=== PATIENT | female | born 1985 | race American Indian/Alaskan Native ===

== ENCOUNTER 2016-12-21 23:53 | Observation (INO) | payer MEDICAID ==
[2016-12-21 23:59] VITALS: BMI 26.7
--- NOTE | 2016-12-22 00:20 | ED PDOC ---
Arrival/HPI - General Chief Complaint: Hip Pain Time Seen by Provider: 12/21/16 23:55 Historian: Patient - History of Present Illness Narrative History of Present Illness (Text): 12/22/16 00:20 Donta Rivera is a 30 year old female, whose past medical history includes sickle cell disease, bronchitis, hypertension, and hypothyroidism, who presents to the Emergency department complaining of diffuse body aches today. Patient states she has experienced similar symptoms in the past secondary to her sickle cell disease. Patient denies any fever, chills, chest pain, shortness of breath , nausea, vomiting, diarrhea, urinary symptoms, back pain, neck pain, headache, dizziness, or any other complaints. Time/Duration: Other (today) Symptom Onset: Gradual Symptom Course: Unchanged Quality: Aching Activities at Onset: Rest, Light Context: Home Past Medical History - Provider Review Nursing Documentation Reviewed: Yes - Infectious Disease Hx of Infectious Diseases: None - Tetanus Immunization Tetanus Immunization: Up to Date - Cardiac Hx Hypertension: Yes - Pulmonary Hx Respiratory Disorders: No - Neurological Hx Neurological Disorder: No - HEENT Hx HEENT Disorder: No - Renal Hx Renal Disorder: No - Endocrine/Metabolic Hx Endocrine Disorders: Yes Hx Hypothyroidism: Yes - Hematological/Oncological Hx Sickle Cell Disease: Yes - Integumentary Hx Dermatological Disorder: No - Musculoskeletal/Rheumatological Hx Falls: Yes - Gastrointestinal Hx Gastrointestinal Disorders: No - Genitourinary/Gynecological Hx Genitourinary Disorders: Yes (c/s x2, removal of left fallopian tube for ectopic pregnacy) Hx Urinary Tract Infection: Yes Other/Comment: ovarian cyst - Psychiatric Hx Psychophysiologic Disorder: Yes Hx Anxiety: Yes Hx Substance Use: No - Past Surgical History Past Surgical History: No Previous - Surgical History Other/Comment: PAC L SUBCLAVIAN 3YRS AGO [place] [facility] [place] in right subclavian - Anesthesia Hx Anesthesia: Yes Hx Anesthesia Reactions: No Hx Malignant Hyperthermia: No - Suicidal Assessment Feels Threatened In Home Enviroment: No Family/Social History - Physician Review Nursing Documentation Reviewed: Yes Family/Social History: No Known Family HX Smoking Status: Never Smoked Hx Alcohol Use: Yes Hx Substance Use: No Hx Substance Use Treatment: No Allergies/Home Meds Allergies/Adverse Reactions: Allergies ketorolac tromethamine [From Toradol] Allergy (Verified 12/22/16 00:00) ITCHING morphine Allergy (Verified 12/22/16 00:00) RASH Penicillins Allergy (Verified 12/22/16 00:00) RASH tramadol Allergy (Verified 12/22/16 00:02) DIZZINESS Home Medications: Home Meds Medication Instructions Recorded Confirmed Albuterol HFA [Ventolin HFA 90 2 puff IH [id number] PRN 12/22/16 12/22/16 mcg/actuation (8 g)] Folic Acid 1 mg PO DAILY 12/22/16 12/22/16 HYDROmorphone [Dilaudid] 4 mg PO PRN 12/22/16 Metoprolol Tartrate 25 mg PO BID 12/22/16 12/22/16 Propylthiouracil 100 mg PO TID 12/22/16 12/22/16 oxyCODONE/Acetaminophen [Percocet 1 tab PO PRN 12/22/16 5/325 mg Tab] Review of Systems - Physician Review All systems were reviewed & negative as marked: Yes - Review of Systems Constitutional: Normal. absent: Fevers Eyes: Normal ENT: Normal Respiratory: Normal. absent: SOB, Cough Cardiovascular: Normal. absent: Chest Pain Gastrointestinal: Normal. absent: Abdominal Pain, Diarrhea, Nausea, Vomiting Genitourinary Female: Normal. absent: Dysuria, Frequency, Hematuria, Urine Output Changes Musculoskeletal: Myalgias (+body aches). absent: Back Pain, Neck Pain Skin: Normal. absent: Rash Neurological: Normal. absent: Headache, Dizziness Endocrine: Normal Hemo/Lymphatic: Normal Psychiatric: Normal Physical Exam Vital Signs Reviewed: Yes Vital Signs Temp Pulse Resp BP Pulse Ox 12/22/16 04:21 98.7 F 96 H 18 110/60 96 12/22/16 04:01 97 H 16 108/59 L 98 12/22/16 01:54 111 H 20 112/66 100 12/22/16 00:02 115 H 18 100/64 99 12/21/16 23:54 115 H 18 100/64 99 Temperature: Afebrile Blood Pressure: Normal Pulse: Regular Respiratory Rate: Normal Appearance: Positive for: Well-Appearing, Non-Toxic, Comfortable Pain Distress: None Mental Status: Positive for: Alert and Oriented X 3 - Systems Exam Head: Present: Atraumatic, Normocephalic Pupils: Present: PERRL Extroacular Muscles: Present: EOMI Conjunctiva: Present: Normal Mouth: Present: Moist Mucous Membranes Neck: Present: Normal Range of Motion Respiratory/Chest: Present: Clear to Auscultation, Good Air Exchange. No: Respiratory Distress, Accessory Muscle Use Cardiovascular: Present: Regular Rate and Rhythm, Normal S1, S2. No: Murmurs Abdomen: Present: Normal Bowel Sounds. No: Tenderness, Distention, Peritoneal Signs Back: Present: Normal Inspection Upper Extremity: Present: Normal Inspection. No: Cyanosis, Edema Lower Extremity: Present: Normal Inspection. No: Edema Neurological: Present: GCS=15, CN II-XII Intact, Speech Normal Skin: Present: Warm, Dry, Normal Color. No: Rashes Psychiatric: Present: Alert, Oriented x 3, Normal Insight, Normal Concentration Medical Decision Making ED Course and Treatment: 12/22/16 00:20 Impression: 30 year old female complaining of diffuse body aches. Differential Diagnosis include but are not limited to: sickle cell crisis Plan: -- EKG -- Labs, troponin, reticulocyte count -- Urinalysis -- IV fluids -- Dilaudid -- Benadryl -- Zofran -- Reassess and disposition Prior Visits: Notes and results from previous visits were reviewed. Progress Notes: 12/22/16 01:49 Reviewed EKG, NSR at [address] bpm[address] Non-specific ST/T wave changes. Positive urine HCG, beta-HC. Pt reports she recently had a miscarriage 5 weeks ago. 12/22/16 03:49 Case discussed with director medical affairs railway station manager, who is aware and agrees with plan. 12/22/16 03:[address] Geronimo, who is aware and agrees with plan. Accepts pt in to hospitalist service. Pt will go to [facility] observation for sickle cell crisis. - Lab Interpretations Lab Results: 12/22/16 02:50 12/22/16 02:50 Lab Results 12/22/16 02:50: WBC 13.6 H D, RBC 3.26 L, Hgb 9.5 L, Hct 26.7 L, MCV 81.9, MCH 29.1, MCHC 35.6, RDW 17.7 H, Plt Count 433, MPV 8.5, Neutrophils % (Manual) 40 L , Lymphocytes % (Manual) 47 H, Monocytes % (Manual) 10 H, Eosinophils % (Manual ) 3, Platelet Evaluation Normal, Polychromasia 1+, Hypochromasia 1+, Poikilocytosis (manual 1+, Anisocytosis (manual) 1+, Sickle Cells Rare, Retic Count 8.95 H* 12/22/16 02:50: Beta HCG, Quant 343.02 H 12/22/16 02:50: Sodium 138, Potassium 3.3 L, Chloride 108 H, Carbon Dioxide 22, Anion Gap 11, BUN 5 L, Creatinine 0.5, Est GFR ( Amer) > 60, Est GFR (Non -Af Amer) > 60, Random Glucose 112 H, Calcium 9.5, Total Bilirubin 1.6 H, AST 70 H, ALT 102 H, Alkaline Phosphatase 64, Troponin I < 0.01, Total Protein 6.8, Albumin 3.9, Globulin 2.9, Albumin/Globulin Ratio 1.3 12/22/16 02:50: PT 11.4, INR 1.06, APTT 25.4 12/22/16 00:00: Urine Color Straw, Urine Appearance Clear, Urine pH 6.0, Ur Specific [place] <= 1.005, Urine Protein Negative, Urine Glucose (UA) Negative, Urine Ketones Negative, Urine Blood Negative, Urine Nitrate Negative, Urine Bilirubin Negative, Urine Urobilinogen 0.2, Ur Leukocyte Esterase Trace H, Urine RBC 0 - 2, Urine WBC 1 - 3, Ur Epithelial Cells 1 - 3, Urine HCG, Qual Positive I have reviewed the lab results: Yes - EKG Interpretation Interpreted by ED Physician: Yes Type: 12 lead EKG - Medication Orders Current Medication Orders: Albuterol Sulfate (Albuterol 0.083% Inhal Susan (2.5 Mg/3 Ml) Ud) 2.5 mg IH [id number] PRN PRN Reason: Shortness of Breath Diphenhydramine HCl (Benadryl) 25 mg PO Q6 PRN PRN Reason: Itching / Pruritus Docusate Sodium (Colace) 100 mg PO BID ELAH Enoxaparin Sodium (Lovenox) 30 mg SC DAILY LEAH PRN Reason: Protocol Famotidine (Pepcid) 20 mg PO BID LEAH Folic Acid (Folic Acid) 1 mg PO DAILY LEAH Hydromorphone HCl (Dilaudid) 2 mg IVP Q4H PRN PRN Reason: Pain, moderate (4-7) Hydromorphone HCl (Dilaudid) 3 mg IVP Q4H PRN PRN Reason: Pain, severe (8-10) Last Admin: 12/22/16 05:43 Dose: 3 mg Sodium Chloride (Sodium Chloride 0.9%) 1,000 mls @ 80 mls/hr IV .[id number] [facility] Last Admin: 12/22/16 01:00 Dose: 80 mls/hr Metoprolol Tartrate (Lopressor) 25 mg PO BID [facility] Ondansetron HCl (Zofran Inj) 4 mg IVP Q6H PRN PRN Reason: Nausea/Vomiting Propylthiouracil (Propylthiouracil) 100 mg PO TID [facility] Discontinued Medications Albuterol/Ipratropium (Duoneb 3 Mg/0.5 Mg (3 Ml) Ud) 3 ml IH Q15M [facility] Stop: 12/22/16 03:16 Last Admin: 12/22/16 03:42 Dose: Not Given Non-Admin Reason: Patient Refused Diphenhydramine HCl (Benadryl) 25 mg IVP ONCE ONE Stop: 12/22/16 00:23 Last Admin: 12/22/16 00:59 Dose: 25 mg Diphenhydramine HCl (Benadryl) 25 mg IVP ONCE ONE Stop: 12/22/16 03:39 Last Admin: 12/22/16 03:43 Dose: 25 mg Hydromorphone HCl (Dilaudid) 2 mg IVP STAT STA Stop: 12/22/16 00:23 Last Admin: 12/22/16 01:00 Dose: 2 mg Re-Assess: CASSIA Pain Assessment Document 12/22/16 02:00 EKEMAO (Rec: 12/22/16 03:33 [facility] [id number] Pain Reassessment Is this a pain reassessment? Yes Sleep Is patient sleeping during reassessment? No Hydromorphone HCl (Dilaudid) 2 mg IVP STAT STA Stop: 12/22/16 03:39 Last Admin: 12/22/16 03:43 Dose: 2 mg Ondansetron HCl (Zofran Inj) 4 mg IVP STAT STA Stop: 12/22/16 00:23 Last Admin: 12/22/16 00:59 Dose: 4 mg Potassium Chloride (K-Dur 20 Meq Er Tab) 20 meq PO ONCE ONE Stop: 12/22/16 03:48 Last Admin: 12/22/16 03:58 Dose: 20 meq - Nicoleibe Statement The provider has reviewed the documentation as recorded by the Ralph Fernandez All medical record entries made by the Nicoleibfatuma were at my direction and personally dictated by me. I have reviewed the chart and agree that the record accurately reflects my personal performance of the history, physical exam, medical decision making, and the department course for this patient. I have also personally directed, reviewed, and agree with the discharge instructions and disposition. Disposition/Present on Arrival - Present on Arrival Any Indicators Present on Arrival: No History of DVT/PE: No History of Uncontrolled Diabetes: No Urinary Catheter: No History of Decub. Ulcer: No History Surgical Site Infection Following: None - Disposition Have Diagnosis and Disposition been Completed?: Yes Diagnosis: Sickle cell pain crisis, Sickle cell anemia Disposition: HOSPITALIZED Disposition Time: 03:50 Condition: GOOD
[2016-12-22] MEDS ORDERED: HYDROmorphone 2 mg/ml ISec IVP STA ×2 (00:22→03:38)
[2016-12-22] MEDS ORDERED: DiphenhydrAMINE 50 mg/ml Inj IVP ONE ×2 (00:22→03:38)
[2016-12-22] MEDS ORDERED: Sodium Chloride 0.9% 1,000 ML IV SCH (00:30)
[2016-12-22 00:47] LABS: URINE BILIRUBIN NEGATIVE (NEGATIVE); URINE BLOOD NEGATIVE (NEGATIVE); URINE GLUCOSE (UA) NEGATIVE (NEGATIVE); URINE KETONE NEGATIVE (NEGATIVE); URINE LEUKOCYTE ESTERASE TRACE Leu/uL (NEGATIVE); URINE PROTEIN NEGATIVE mg/dL (<30 mg/dL); URINE UROBILINOGEN 0.2 E.U./dL (<1 E.U./dL)
[2016-12-22 00:50] LABS: URINE APPEARANCE CLEAR (CLEAR); URINE COLOR STRAW (YELLOW)
[2016-12-22 00:53] LABS: URINE RBC 0 - 2 /hpf (0-2)
[2016-12-22] MEDS: Albuterol-Ipratrop 3 mg / 0.5 (3 ml) UD IH SCH ×2 (02:48→03:42)
[2016-12-22 03:07] LABS: HEMATOCRIT 26.7 % (36.0-48.0); MEAN CELL VOLUME 81.9 fL (80.0-105.0); MEAN CORPUSCULAR HEMOGLOBIN 29.1 pg (25.0-35.0); MEAN CORPUSCULAR HGB CONC 35.6 g/dl (31.0-37.0); MEAN PLATELET VOLUME 8.5 fl (7.0-11.0); PLATELET COUNT 433 10^3/uL (120.0-450.0); RED CELL DISTRIBUTION WIDTH 17.7 % (11.5-14.5); WHITE BLOOD COUNT 13.6 10^3/ul (4.5-11.0)
[2016-12-22 03:14] LABS: INR 1.06 (0.93-1.08); PARTIAL THROMBOPLASTIN TIME 25.4 Seconds (23.7-30.8)
[2016-12-22 03:15] LABS: ADD MANUAL DIFF? YES
[2016-12-22 03:16] LABS: RETIC% 8.95 % (0.5-1.5)
[2016-12-22 03:27] LABS: ALB/GLOB RATIO 1.3 (1.1-1.8); ALKALINE PHOSPHATASE 64 U/L (38-133); ALT/SGPT 102 U/L (7-56); AST/SGOT 70 U/L (15-39); BILIRUBIN,TOTAL 1.6 mg/dL (0.2-1.3); BLOOD UREA NITROGEN 5 mg/dL (7-21); CALCIUM 9.5 mg/dL (8.4-10.5); CARBON DIOXIDE 22 mmol/L (21-33); CHLORIDE 108 mmol/L (98-107); GFR AFRICAN-AMERICAN > 60; GLUCOSE,RANDOM 112 mg/dL (70-110); POTASSIUM 3.3 mmol/L (3.6-5.0); SODIUM 138 mmol/L (132-148); TOTAL PROTEIN 6.8 g/dL (5.8-8.3)
[2016-12-22 03:45] LABS: TROPONIN I < 0.01 ng/mL
[2016-12-22] MEDS ORDERED: Potassium Chloride 20 mEq ER Tab PO ONE (03:47)
[2016-12-22 03:53] LABS: EOSINOPHIL 3 % (0.0-3.0); NEUTROPHIL 40 % (50.0-70.0)
[2016-12-22 03:54] LABS: ANISOCYTOSIS 1+; HYPOCHROMIA 1+; PLATELET ESTIMATE NORMAL (NORMAL); POIKILOCYTOSIS 1+; POLYCHROMASIA 1+
[2016-12-22] MEDS ORDERED: HYDROmorphone 2 mg/ml ISec IVP PRN (04:35)
[2016-12-22] MEDS ORDERED: Albuterol HFA 90 mcg/actuation (8 g) IH PRN (04:43)
--- NOTE | 2016-12-22 05:03 | CP.PCM.HP ---
<Diamond Healy - Last Filed: 12/22/16 05:00> History of Present Illness - History of Present Illness History of Present Illness: PGY-1 H&P 30 yo female with PMH of sickle cell (SS), avascular necrosis, chronic bronchitis, hyperthyroidism, HTN presents to ED with body aches. Patient states that yesterday around 10 am she began to feel a dull aching pain in her hips while doing house work. Patient states she took her Dilaudid and the pain improved. Later at night patient states that she began to feel the pain return to her hips and began in her knees. She tired to rest have the pain continued without improvement. Patient state that the pain is similar to her previous sickle cell crisis. Patient states that her son and mother have been sick with head colds. She report dry cough, runny nose and sneezing as well. She denies fever, sob, d/c, urinary symptoms, and headaches. Pt states that she recently had miscarriage on November 10. PMH: sickle cell (SS), avascular necrosis, chronic bronchitis, hyperthyroidism, HTN PSH: , port-cath placement, D&C social hx: smokes 1 cig/day, drink 2 cups of alcohol per week, denies illicit drug use fam hx: brother has sickle cell, mother renal ca, father DM allergy: ketorolac, morphine, penicillins, tramadol Present on Admission - Present on Admission Any Indicators Present on Admission: No Review of Systems - Constitutional Constitutional: Chills. absent: Fever, Headache - EENT Nose/Mouth/Throat: Nasal Discharge. absent: Sore Throat - Cardiovascular Cardiovascular: absent: Chest Pain, Diaphoresis, Dyspnea - Respiratory Respiratory: Cough. absent: Dyspnea, Hemoptysis - Gastrointestinal Gastrointestinal: Heartburn, Nausea. absent: Abdominal Pain, Constipation, Diarrhea, Vomiting - Genitourinary Genitourinary: absent: Difficulty Urinating, Dysuria, Hematuria - Musculoskeletal Musculoskeletal: Myalgias. absent: Numbness, Tingling - Integumentary Integumentary: absent: Rash, Skin Ulcer, Swelling, Wounds - Neurological Neurological: absent: Dizziness, Headaches, Weakness - Hematologic/Lymphatic Hematologic: absent: Easy Bleeding, Easy Bruising Past Patient History - Infectious Disease Hx of Infectious Diseases: None - Tetanus Immunizations Tetanus Immunization: Up to Date - Past Medical History & Family History Past Medical History?: Yes - Past Social History Smoking Status: Light Smoker < 10 Cigarettes Daily Alcohol: < 2 Drinks/Day Drugs: Denies - CARDIAC Hx Hypertension: Yes - PULMONARY Hx Respiratory Disorders: No - NEUROLOGICAL Hx Neurological Disorder: No - HEENT Hx HEENT Problems: No - RENAL Hx Chronic Kidney Disease: No - ENDOCRINE/METABOLIC Hx Endocrine Disorders: Yes Hx Hypothyroidism: Yes - HEMATOLOGICAL/ONCOLOGICAL Hx Sickle Cell Disease: Yes - INTEGUMENTARY Hx Dermatological Problems: No - MUSCULOSKELETAL/RHEUMATOLOGICAL Hx Falls: Yes - GASTROINTESTINAL Hx Gastrointestinal Disorders: No - GENITOURINARY/GYNECOLOGICAL Hx Genitourinary Disorders: Yes (c/s x2, removal of left fallopian tube for ectopic pregnacy) Hx Urinary Tract Infection: Yes Other/Comment: ovarian cyst - PSYCHIATRIC Hx Psychophysiologic Disorder: Yes Hx Anxiety: Yes Hx Substance Use: No - SURGICAL HISTORY Other/Comment[place] 3Y[place] [facility] [place] right subclavian - ANESTHESIA Hx Anesthesia: Yes Hx Anesthesia Reactions: No Hx Malignant Hyperthermia: No Meds Allergies/Adverse Reactions: Allergies Allergy/AdvReac Type Severity Reaction Status Date / Time ketorolac tromethamine Allergy ITCHING Verified 12/22/16 00:00 [From Toradol] morphine Allergy RASH Verified 12/22/16 00:00 Penicillins Allergy RASH Verified 12/22/16 00:00 tramadol Allergy DIZZINESS Verified 12/22/16 00:02 Physical Exam - Constitutional Appears: No Acute Distress - Head Exam Head Exam: ATRAUMATIC, NORMOCEPHALIC - Eye Exam Eye Exam: Normal appearance - ENT Exam ENT Exam: Mucous Membranes Moist - Respiratory Exam Respiratory Exam: Clear to Auscultation Bilateral, NORMAL BREATHING PATTERN. absent: Decreased Breath Sounds, Rhonchi, Wheezes, Respiratory Distress - Cardiovascular Exam Cardiovascular Exam: REGULAR RHYTHM, +S1, +S2. absent: Tachycardia, Systolic Murmur - Extremities Exam Extremities exam: Positive for: normal inspection. Negative for: pedal edema - Neurological Exam Neurological exam: Alert, Oriented x3 - Skin Skin Exam: Dry, Intact, Normal Color, Warm Results - Vital Signs Recent Vital Signs: Last Vital Signs Temp 98.7 F 12/22/16 04:21 Pulse 96 H 12/22/16 04:21 Resp 18 12/22/16 04:21 BP 110/60 12/22/16 04:21 Pulse Ox 96 12/22/16 04:21 - Labs Result Diagrams: 12/22/16 02:50 12/22/16 02:50 Assessment & Plan - Assessment and Plan (Free Text) Assessment: 30 yo female with PMH of sickle cell (SS), avascular necrosis, chronic bronchitis, hyperthyroidism, HTN presents with sickle cell crisis. Plan: 1. sickle cell crisis - hgb above baseline, retic count 8.95 - IVF NS @80 - Dilaudid 2mg and 3mg for pain - Benadryl prn - Colace 100 bid - zofran 4 prn - cont folic acid 2. HTN - cont home med of metoprolol 25mg BID - cont to monitor 3. hyperthyroidism - cont home med PTU 100 TID 4. chronic bronchitis - albuterol prn ppx - GI- pepcid - DVT- lovenox <Christopher Geronimo Q - Last Filed: 12/22/16 06:40> Results - Vital Signs Recent Vital Signs: Last Vital Signs Temp 98.7 F 12/22/16 04:21 Pulse 96 H 12/22/16 04:21 Resp 18 12/22/16 04:21 BP 110/60 12/22/16 04:21 Pulse Ox 96 12/22/16 04:21 - Labs Result Diagrams: 12/22/16 02:50 12/22/16 02:50 Attending/Attestation - Attestation I have personally seen and examined this patient.: Yes I have fully participated in the care of the patient.: Yes I have reviewed all pertinent clinical information: Yes
[2016-12-22] MEDS ORDERED: Albuterol 0.083% Inhal Sol (2.5 mg/3 mL) UD IH PRN (05:13)
[2016-12-22] MEDS ORDERED: Albuterol-Ipratrop 3 mg / 0.5 (3 ml) UD IH PRN (06:39)
[2016-12-22 07:01] VITALS: RESP 20
[2016-12-22] MEDS: Enoxaparin 30 mg Syringe SC SCH (09:35)
[2016-12-22] MEDS ORDERED: Alum-Mag Hydrox-Simethicone Susp (30 mL) PO PRN (09:37)
[2016-12-22] MEDS ORDERED: DiphenhydrAMINE 50 mg/ml Inj IVP STA (09:57)
[2016-12-22] MEDS: Sodium Chloride 0.9% 1,000 ML IV SCH ×2 (10:14→18:12)
--- NOTE | 2016-12-22 14:33 | CARD ---
APPROVED REPORT EKG Measurement Heart [id number] <Conclusion> Normal sinus rhythm Minimal voltage criteria for LVH, may be normal variant Nonspecific T wave abnormality Prolonged QT Abnormal ECG
[2016-12-23 06:48] LABS: ADD MANUAL DIFF? NO
[2016-12-23 06:52] LABS: BASO # 0.05 K/mm3 (0.0-2.0); BASO % 0.5 % (0.0-3.0); EOS # 0.5 (0.0-0.7); GRAN # 3.93 (1.4-6.5); GRAN % 36.8 % (50.0-68.0); HEMATOCRIT 25.6 % (36.0-48.0); LYMPH % 46.6 % (22.0-35.0); MEAN CELL VOLUME 81.8 fL (80.0-105.0); MEAN CORPUSCULAR HEMOGLOBIN 28.4 pg (25.0-35.0); MEAN CORPUSCULAR HGB CONC 34.8 g/dl (31.0-37.0); MEAN PLATELET VOLUME 8.8 fl (7.0-11.0); MONO # 1.2 (0.1-0.6); MONO % 11.1 % (1.0-6.0); PLATELET COUNT 418 10^3/uL (120.0-450.0); RED CELL DISTRIBUTION WIDTH 17.3 % (11.5-14.5); WHITE BLOOD COUNT 10.7 10^3/ul (4.5-11.0)
[2016-12-23 07:04] LABS: ALB/GLOB RATIO 1.1 (1.1-1.8); ALKALINE PHOSPHATASE 60 U/L (38-133); ALT/SGPT 79 U/L (7-56); AST/SGOT 67 U/L (15-39); BILIRUBIN,TOTAL 1.9 mg/dL (0.2-1.3); BLOOD UREA NITROGEN 6 mg/dL (7-21); CALCIUM 9.5 mg/dL (8.4-10.5); CARBON DIOXIDE 23 mmol/L (21-33); CHLORIDE 110 mmol/L (98-107); GFR AFRICAN-AMERICAN > 60; GLUCOSE,RANDOM 86 mg/dL (70-110); POTASSIUM 3.5 mmol/L (3.6-5.0); SODIUM 138 mmol/L (132-148); TOTAL PROTEIN 6.4 g/dL (5.8-8.3)
[2016-12-23 07:15] LABS: RETIC% 9.36 % (0.5-1.5)
[2016-12-23] MEDS: Enoxaparin 30 mg Syringe SC SCH (09:03)
[2016-12-23] MEDS ORDERED: Oxycodone/Acetaminophen 5/325 mg Tab PO PRN ×2 (11:07→11:08)
[2016-12-23] MEDS ORDERED: Sodium Chloride 0.45% 1,000 ML IV SCH (11:15)
[2016-12-23] MEDS ORDERED: DiphenhydrAMINE 50 mg/ml Inj IVP ONE (11:17)
[2016-12-23] MEDS ORDERED: Potassium Chloride 20 mEq ER Tab PO ONE (11:18)
--- NOTE | 2016-12-23 13:28 | CP.PCM.DIS ---
<Jovan Wray - Last Filed: 12/24/16 09:06> Provider - Provider Date of Admission: 12/22/16 03:45 Attending physician: Susan Torrez MD Primary care physician: Nacho Gonzalez MD Time Spent in preparation of Discharge (in minutes): 25 Hospital Course - Lab Results Lab Results: Most Recent Lab Values WBC 10.7 10^3/ul (4.5-11.0) D 12/23/16 06:30 RBC 3.13 10^6/uL (3.5-6.1) L 12/23/16 06:30 Hgb 8.9 gm/dL (12.0-16.0) L 12/23/16 06:30 Hct 25.6 % (36.0-48.0) L 12/23/16 06:30 MCV 81.8 fL (80.0-105.0) 12/23/16 06:30 MCH 28.4 pg (25.0-35.0) 12/23/16 06:30 MCHC 34.8 g/dl (31.0-37.0) 12/23/16 06:30 RDW 17.3 % (11.5-14.5) H 12/23/16 06:30 Plt Count 418 10^3/uL (120.0-450.0) 12/23/16 06:30 MPV 8.8 fl (7.0-11.0) 12/23/16 06:30 Gran % 36.8 % (50.0-68.0) L 12/23/16 06:30 Lymph % (Auto) 46.6 % (22.0-35.0) H 12/23/16 06:30 [place] % (Auto) 11.1 % (1.0-6.0) H 12/23/16 06:30 Eos % (Auto) 5.0 % (1.5-5.0) 12/23/16 06:30 Baso % (Auto) 0.5 % (0.0-3.0) 12/23/16 06:30 Gran # 3.93 (1.4-6.5) 12/23/16 06:30 Lymph # 5.0 (1.2-3.4) H 12/23/16 06:30 [place] # 1.2 (0.1-0.6) H 12/23/16 06:30 Eos # 0.5 (0.0-0.7) 12/23/16 06:30 Baso # 0.05 K/mm3 (0.0-2.0) 12/23/16 06:30 Neutrophils % (Manual) 40 % (50.0-70.0) L 12/22/16 02:50 Lymphocytes % (Manual) 47 % (22.0-35.0) H 12/22/16 02:50 Monocytes % (Manual) 10 % (1.0-6.0) H 12/22/16 02:50 Eosinophils % (Manual) 3 % (0.0-3.0) 12/22/16 02:50 Platelet Evaluation Normal (NORMAL) 12/22/16 02:50 Polychromasia 1+ 12/22/16 02:50 Hypochromasia 1+ 12/22/16 02:50 Poikilocytosis (manual 1+ 12/22/16 02:50 Anisocytosis (manual) 1+ 12/22/16 02:50 Sickle Cells Rare 12/22/16 02:50 Retic Count 9.36 % (0.5-1.5) H* 12/23/16 06:30 PT 11.4 Seconds (9.9-11.8) 12/22/16 02:50 INR 1.06 (0.93-1.08) 12/22/16 02:50 APTT 25.4 Seconds (23.7-30.8) 12/22/16 02:50 Sodium 138 mmol/L (132-148) 12/23/16 06:30 Potassium 3.5 mmol/L (3.6-5.0) L 12/23/16 06:30 Chloride 110 mmol/L (98-107) H 12/23/16 06:30 Carbon Dioxide 23 mmol/L (21-33) 12/23/16 06:30 Anion Gap 9 (10-20) L 12/23/16 06:30 BUN 6 mg/dL (7-21) L 12/23/16 06:30 Creatinine 0.5 mg/dL (0.5-1.4) 12/23/16 06:30 Est GFR ( Amer) > 60 12/23/16 06:30 Est GFR (Non-Af Amer) > 60 12/23/16 06:30 Random Glucose 86 mg/dL (70-110) 12/23/16 06:30 Calcium 9.5 mg/dL (8.4-10.5) 12/23/16 06:30 Total Bilirubin 1.9 mg/dL (0.2-1.3) H 12/23/16 06:30 AST 67 U/L (15-39) H 12/23/16 06:30 ALT 79 U/L (7-56) H 12/23/16 06:30 Alkaline Phosphatase 60 U/L (38-133) 12/23/16 06:30 Troponin I < 0.01 ng/mL 12/22/16 02:50 Total Protein 6.4 g/dL (5.8-8.3) 12/23/16 06:30 Albumin 3.4 g/dL (3.0-4.8) 12/23/16 06:30 Globulin 3.0 gm/dL 12/23/16 06:30 Albumin/Globulin Ratio 1.1 (1.1-1.8) 12/23/16 06:30 Beta HCG, Quant 343.02 mIU/mL (0-6.15) H 12/22/16 02:50 Urine Color Straw (YELLOW) 12/22/16 00:00 Urine Appearance Clear (CLEAR) 12/22/16 00:00 Urine pH 6.0 (4.7-8.0) 12/22/16 00:00 Ur Specific [place] <= 1.005 (1.005-1.035) 12/22/16 00:00 Urine Protein Negative mg/dL (<30 mg/dL) 12/22/16 00:00 Urine Glucose (UA) Negative mg/dL (NEGATIVE) 12/22/16 00:00 Urine Ketones Negative mg/dL (NEGATIVE) 12/22/16 00:00 Urine Blood Negative (NEGATIVE) 12/22/16 00:00 Urine Nitrate Negative (NEGATIVE) 12/22/16 00:00 Urine Bilirubin Negative (NEGATIVE) 12/22/16 00:00 Urine Urobilinogen 0.2 E.U./dL (<1 E.U./dL) 12/22/16 00:00 Ur Leukocyte Esterase Trace Larry/uL (NEGATIVE) H 12/22/16 00:00 Urine RBC 0 - 2 /hpf (0-2) 12/22/16 00:00 Urine WBC 1 - 3 /hpf (0-6) 12/22/16 00:00 Ur Epithelial Cells 1 - 3 /hpf (0-5) 12/22/16 00:00 Urine HCG, Qual Positive (NEGATIVE) 12/22/16 00:00 - Hospital Course Hospital Course: 12/22: 30 yo female with PMH of sickle cell (SS), avascular necrosis, chronic bronchitis, hyperthyroidism, HTN presents to ED with body aches. Patient states that yesterday around 10 am she began to feel a dull aching pain in her hips while doing house work. Patient states she took her Dilaudid and the pain improved. Later at night patient states that she began to feel the pain return to her hips and began in her knees. She tired to rest have the pain continued without improvement. Patient state that the pain is similar to her previous sickle cell crisis. Patient states that her son and mother have been sick with head colds. She report dry cough, runny nose and sneezing as well. She denies fever, sob, d/c, urinary symptoms, and headaches. Pt states that she recently had miscarriage on November 1012/23: Patient kept complaining of general pruritus and requesting pain medication. Patient was also requesting IV benadryl, refusing to take po benadryl by stating it did not work. Patient was also calibrating the IV machine fluid rate on her own as per nursing. Patient had a recent miscarriage about 5 weeks ago. A pelvis u/s was done to r/o new . Patient refused to wait for the pelvic ultrasound reports and decided to sign out against medical advice. The potential risks of doing so were explained to the patient thoroughly, however, she was insistent she did not want to stay and demanded to sign out against medical advice. Above is a brief hospital summary, for more details please refer to the medical records. Discharge Exam - Head Exam Head Exam: ATRAUMATIC, NORMOCEPHALIC - Eye Exam Eye Exam: Normal appearance - ENT Exam ENT Exam: Mucous Membranes Moist - Respiratory Exam Respiratory Exam: NORMAL BREATHING PATTERN - Cardiovascular Exam Cardiovascular Exam: +S1, +S2 - GI/Abdominal Exam GI & Abdominal Exam: Soft - Neurological Exam Neurological exam: Alert, Oriented x3 - Psychiatric Exam Psychiatric exam: Normal Mood - Skin Skin Exam: Dry, Intact, Warm Discharge Plan - Follow Up Plan Condition: GUARDED Disposition: AGAINST MEDICAL ADVICE Instructions: Sickle Cell Crisis (DC) Additional Instructions: Follow up with your primary care physician in 5-7 days Referrals: Nacho Gonzalez MD [Primary Care Provider] - <Felicia RODRIGUEZ,[facility] - Last Filed: 12/24/16 13:57> Provider - Provider Date of Admission: 12/22/16 03:45 Attending physician: Susan Torrez MD Primary care physician: Nacho Gonzalez MD Hospital Course - Lab Results Lab Results: Most Recent Lab Values WBC 10.7 10^3/ul (4.5-11.0) D 12/23/16 06:30 RBC 3.13 10^6/uL (3.5-6.1) L 12/23/16 06:30 Hgb 8.9 gm/dL (12.0-16.0) L 12/23/16 06:30 Hct 25.6 % (36.0-48.0) L 12/23/16 06:30 MCV 81.8 fL (80.0-105.0) 12/23/16 06:30 MCH 28.4 pg (25.0-35.0) 12/23/16 06:30 MCHC 34.8 g/dl (31.0-37.0) 12/23/16 06:30 RDW 17.3 % (11.5-14.5) H 12/23/16 06:30 Plt Count 418 10^3/uL (120.0-450.0) 12/23/16 06:30 MPV 8.8 fl (7.0-11.0) 12/23/16 06:30 Gran % 36.8 % (50.0-68.0) L 12/23/16 06:30 Lymph % (Auto) 46.6 % (22.0-35.0) H 12/23/16 06:30 [place] % (Auto) 11.1 % (1.0-6.0) H 12/23/16 06:30 Eos % (Auto) 5.0 % (1.5-5.0) 12/23/16 06:30 Baso % (Auto) 0.5 % (0.0-3.0) 12/23/16 06:30 Gran # 3.93 (1.4-6.5) 12/23/16 06:30 Lymph # 5.0 (1.2-3.4) H 12/23/16 06:30 [place] # 1.2 (0.1-0.6) H 12/23/16 06:30 Eos # 0.5 (0.0-0.7) 12/23/16 06:30 Baso # 0.05 K/mm3 (0.0-2.0) 12/23/16 06:30 Neutrophils % (Manual) 40 % (50.0-70.0) L 12/22/16 02:50 Lymphocytes % (Manual) 47 % (22.0-35.0) H 12/22/16 02:50 Monocytes % (Manual) 10 % (1.0-6.0) H 12/22/16 02:50 Eosinophils % (Manual) 3 % (0.0-3.0) 12/22/16 02:50 Platelet Evaluation Normal (NORMAL) 12/22/16 02:50 Polychromasia 1+ 12/22/16 02:50 Hypochromasia 1+ 12/22/16 02:50 Poikilocytosis (manual 1+ 12/22/16 02:50 Anisocytosis (manual) 1+ 12/22/16 02:50 Sickle Cells Rare 12/22/16 02:50 Retic Count 9.36 % (0.5-1.5) H* 12/23/16 06:30 PT 11.4 Seconds (9.9-11.8) 12/22/16 02:50 INR 1.06 (0.93-1.08) 12/22/16 02:50 APTT 25.4 Seconds (23.7-30.8) 12/22/16 02:50 Sodium 138 mmol/L (132-148) 12/23/16 06:30 Potassium 3.5 mmol/L (3.6-5.0) L 12/23/16 06:30 Chloride 110 mmol/L (98-107) H 12/23/16 06:30 Carbon Dioxide 23 mmol/L (21-33) 12/23/16 06:30 Anion Gap 9 (10-20) L 12/23/16 06:30 BUN 6 mg/dL (7-21) L 12/23/16 06:30 Creatinine 0.5 mg/dL (0.5-1.4) 12/23/16 06:30 Est GFR ( Amer) > 60 12/23/16 06:30 Est GFR (Non-Af Amer) > 60 12/23/16 06:30 Random Glucose 86 mg/dL (70-110) 12/23/16 06:30 Calcium 9.5 mg/dL (8.4-10.5) 12/23/16 06:30 Total Bilirubin 1.9 mg/dL (0.2-1.3) H 12/23/16 06:30 AST 67 U/L (15-39) H 12/23/16 06:30 ALT 79 U/L (7-56) H 12/23/16 06:30 Alkaline Phosphatase 60 U/L (38-133) 12/23/16 06:30 Troponin I < 0.01 ng/mL 12/22/16 02:50 Total Protein 6.4 g/dL (5.8-8.3) 12/23/16 06:30 Albumin 3.4 g/dL (3.0-4.8) 12/23/16 06:30 Globulin 3.0 gm/dL 12/23/16 06:30 Albumin/Globulin Ratio 1.1 (1.1-1.8) 12/23/16 06:30 Beta HCG, Quant 343.02 mIU/mL (0-6.15) H 12/22/16 02:50 Urine Color Straw (YELLOW) 12/22/16 00:00 Urine Appearance Clear (CLEAR) 12/22/16 00:00 Urine pH 6.0 (4.7-8.0) 12/22/16 00:00 Ur Specific [place] <= 1.005 (1.005-1.035) 12/22/16 00:00 Urine Protein Negative mg/dL (<30 mg/dL) 12/22/16 00:00 Urine Glucose (UA) Negative mg/dL (NEGATIVE) 12/22/16 00:00 Urine Ketones Negative mg/dL (NEGATIVE) 12/22/16 00:00 Urine Blood Negative (NEGATIVE) 12/22/16 00:00 Urine Nitrate Negative (NEGATIVE) 12/22/16 00:00 Urine Bilirubin Negative (NEGATIVE) 12/22/16 00:00 Urine Urobilinogen 0.2 E.U./dL (<1 E.U./dL) 12/22/16 00:00 Ur Leukocyte Esterase Trace Larry/uL (NEGATIVE) H 12/22/16 00:00 Urine RBC 0 - 2 /hpf (0-2) 12/22/16 00:00 Urine WBC 1 - 3 /hpf (0-6) 12/22/16 00:00 Ur Epithelial Cells 1 - 3 /hpf (0-5) 12/22/16 00:00 Urine HCG, Qual Positive (NEGATIVE) 12/22/16 00:00 Attending/Attestation - Attestation I have personally seen and examined this patient.: Yes I have fully participated in the care of the patient.: Yes I have reviewed all pertinent clinical information, including history, physical exam and plan: Yes Notes (Text): 12/24/16 13:52 Patient was seen and examined with medical microbiologist .Agreed with resident assessment and plan. 30 Yrs old female with PMH of Sickle cell disease, non compliance with medication and history of drug abuse was admitted with sickle cell crisis, RPI index was not high, was treated with IV hydration, pain medication were tapered down, patient had history of recent miscarriage, mild elevated HCG level was due to recent , patient was insisting that she is and wants Pelvic USG which is negative for .Patient did not wait for the results and left against medical advice. Prognosis is guarded due to ongoing opoid abuse and non compliance. Management plan was discussed in detail with patient Education was provided.
[2016-12-23] MEDS: HYDROmorphone 0.5 mg/0.5 ml ISec IVP PRN ×2 (14:14→18:07)
[2016-12-23 16:50] VITALS: BP 101/58; PULSE 94; TEMP 99.3; O2SAT 98
--- NOTE | 2016-12-24 06:36 | CP.PCM.PN ---
Subjective - Date & Time of Evaluation Date of Evaluation: 12/23/16 Time of Evaluation: 09:45 - Subjective Subjective: Patient seen and examined w/ medical attending. Patient complaining of generalized Objective - Vital Signs/Intake and Output Vital Signs (last 24 hours): Temp Pulse Resp BP Pulse Ox 99.3 F 94 H 20 101/58 L 98 12/23/16 16:49 12/23/16 16:49 12/23/16 16:49 12/23/16 16:49 12/23/16 16:49 Intake and Output: 12/23/16 12/24/16 18:59 06:59 Intake Total 1060 Output Total 0 Balance 1060 - Labs Labs: 12/23/16 06:30 12/23/16 06:30 PT 11.4 Seconds (9.9-11.8) 12/22/16 02:50 INR 1.06 (0.93-1.08) 12/22/16 02:50 APTT 25.4 Seconds (23.7-30.8) 12/22/16 02:50
--- NOTE | 2016-12-24 08:25 | US ---
HISTORY: History of , high HCG level COMPARISON: None available. TECHNIQUE: Transabdominal pelvic ultrasound was performed. FINDINGS: UTERUS: Measures 8.1 x 5.0 x 6.7 cm. Retroverted, normal in size and appearance. No fibroid or other mass lesion seen. ENDOMETRIUM: Measures 18 mm in diameter. Unremarkable. CERVIX: No cervical abnormality identified. RIGHT OVARY: Measures 4.7 x 3.6 x 4.0 cm. No solid mass. Normal flow. There is a 2.7 cm simple cyst. LEFT OVARY: Not visualized. FREE FLUID: No significant free fluid noted. OTHER FINDINGS: None. IMPRESSION: 2.0 cm simple cyst in the right ovary. No evidence of adnexal mass or free fluid in the pelvis.
== END 2016-12-23 20:46 | disposition left against medical advice (07) ==
LOC: ED 23:53 → ERH 12-22 03:45 → 5RSO 12-22 04:46
PROVIDERS: ADMIT Hospitalist; ATTEND Hospitalist
DX: D57.00 Hb-SS disease with crisis, unspecified (principal); F11.10 Opioid abuse, uncomplicated; J42 Unspecified chronic bronchitis; I10 Essential (primary) hypertension; E05.90 Thyrotoxicosis, unspecified without thyrotoxic crisis or storm; M87.9 Osteonecrosis, unspecified; Z88.8 Allergy status to other drugs, medicaments and biological substances; Z88.0 Allergy status to penicillin; Z91.19 Patient's noncompliance with other medical treatment and regimen; Z91.14 Patient's other noncompliance with medication regimen
CPT/HCPCS: 36415; 76856; 80053; 81001; 84484; 84702; 84703; 85025; 85044; 85610; 85730; 87086; 93005; 96374; 96375; 96376; 99285; G0378; J1170; J1200; J2405; J7030; J7040

== ENCOUNTER 2016-12-29 18:00 | Emergency (ER) | payer MEDICAID ==
[2016-12-29 18:14] VITALS: BP 102/62; PULSE 106; RESP 12; TEMP 99.2; O2SAT 98
[2016-12-29 18:17] VITALS: BMI 27.8
[2016-12-29] MEDS ORDERED: Sodium Chloride 0.9% 1,000 ML IV STA (18:55)
--- NOTE | 2016-12-29 18:55 | ED PDOC ---
Arrival/HPI - General Chief Complaint: Abdominal Pain Time Seen by Provider: 12/29/16 18:20 Historian: Patient - History of Present Illness Narrative History of Present Illness (Text): 12/29/16 18:52 30 year old female, 5 weeks , , presents to the emergency department with generalized body aches and nausea. Denies fever or vomiting. Patient states she had an ultrasound this which confirms the baby. Time/Duration: < week Symptom Onset: Gradual Symptom Course: Unchanged Modifying Factors (Text): None Past Medical History - Provider Review Nursing Documentation Reviewed: Yes - Infectious Disease Hx of Infectious Diseases: None - Tetanus Immunization Tetanus Immunization: Up to Date - Cardiac Hx Hypertension: Yes - Pulmonary Hx Respiratory Disorders: No - Neurological Hx Neurological Disorder: No - HEENT Hx HEENT Disorder: No - Renal Hx Renal Disorder: No - Endocrine/Metabolic Hx Endocrine Disorders: Yes Hx Hypothyroidism: Yes - Hematological/Oncological Hx Sickle Cell Disease: Yes - Integumentary Hx Dermatological Disorder: No - Musculoskeletal/Rheumatological Hx Falls: Yes - Gastrointestinal Hx Gastrointestinal Disorders: No - Genitourinary/Gynecological Hx Genitourinary Disorders: Yes (c/s x2, removal of left fallopian tube for ectopic pregnacy) Hx Urinary Tract Infection: Yes Other/Comment: ovarian cyst - Psychiatric Hx Psychophysiologic Disorder: Yes Hx Anxiety: Yes Hx Substance Use: No - Past Surgical History Past Surgical History: No Previous - Surgical History Other/Comment: [place]CLAVIAN 3YRS [place]GO [place] [facility] [place] in right subclavian - Anesthesia Hx Anesthesia: Yes Hx Anesthesia Reactions: No Hx Malignant Hyperthermia: No - Suicidal Assessment Feels Threatened In Home Enviroment: No Family/Social History - Physician Review Nursing Documentation Reviewed: Yes Family/Social History: Unknown Family HX Smoking Status: Never Smoked Hx Alcohol Use: Yes Hx Substance Use: No Hx Substance Use Treatment: No Allergies/Home Meds Allergies/Adverse Reactions: Allergies ketorolac tromethamine [From Toradol] Allergy (Verified 12/29/16 18:45) ITCHING morphine Allergy (Verified 12/29/16 18:45) RASH Penicillins Allergy (Verified 12/29/16 18:45) RASH tramadol Allergy (Verified 12/29/16 18:45) DIZZINESS Home Medications: Home Meds Medication Instructions Recorded Confirmed Albuterol HFA [Ventolin HFA 90 2 puff IH [id number] PRN 12/22/16 12/22/16 mcg/actuation (8 g)] Folic Acid 1 mg PO DAILY 12/22/16 12/22/16 HYDROmorphone [Dilaudid] 4 mg PO PRN 12/22/16 Metoprolol Tartrate 25 mg PO BID 12/22/16 12/22/16 Propylthiouracil 100 mg PO TID 12/22/16 12/22/16 oxyCODONE/Acetaminophen [Percocet 1 tab PO PRN 12/22/16 5/325 mg Tab] Review of Systems - Physician Review All systems were reviewed & negative as marked: Yes - Review of Systems Constitutional: absent: Fevers Gastrointestinal: Nausea. absent: Vomiting Musculoskeletal: Arthralgias Physical Exam Vital Signs Reviewed: Yes Vital Signs Temp Pulse Resp BP Pulse Ox 12/29/16 18:01 99.2 F 106 H 12 102/62 98 Temperature: Afebrile Blood Pressure: Normal Pulse: Tachycardic Respiratory Rate: Normal Appearance: Positive for: Well-Appearing, Non-Toxic, Comfortable Pain Distress: None Mental Status: Positive for: Alert and Oriented X 3 - Systems Exam Head: Present: Atraumatic, Normocephalic Pupils: Present: PERRL Extroacular Muscles: Present: EOMI Conjunctiva: Present: Normal Mouth: Present: Moist Mucous Membranes Neck: Present: Normal Range of Motion Respiratory/Chest: Present: Clear to Auscultation, Good Air Exchange. No: Respiratory Distress, Accessory Muscle Use Cardiovascular: Present: Regular Rate and Rhythm, Normal S1, S2. No: Murmurs Abdomen: Present: Tenderness (Mild nonfocal), Normal Bowel Sounds, Other (Soft) . No: Distention, Peritoneal Signs Back: Present: Normal Inspection Upper Extremity: Present: Normal Inspection. No: Cyanosis, Edema Lower Extremity: Present: Normal Inspection. No: Edema Neurological: Present: GCS=15, CN II-XII Intact, Speech Normal Skin: Present: Warm, Dry, Normal Color. No: Rashes Psychiatric: Present: Alert, Oriented x 3, Normal Concentration, Other ( Sleeping comfortably) Medical Decision Making ED Course and Treatment: Impression: 30 year old female, 5 weeks , , presents to the emergency department with generalized body aches and nausea. Differential Diagnosis included but are not limited to: Plan: -- Zofran -- Beta HCG -- Labs -- Reassess and disposition Prior Visits: Notes and results from previous visits were reviewed. Patient last seen in the ED on 12/22/16 for body aches and admitted for sickle cell crisis. Progress Notes: 12/29/16 19:41 Patient well known to the emergency department requesting IV narcotics. Patient noted to be sleeping comfortably. Advised patient she is . Will not dose IV narcotics at this time. Advised will pursue bloodwork and imaging. Patient seen eloping from ER. - Medication Orders Current Medication Orders: Discontinued Medications Sodium Chloride (Sodium Chloride 0.9%) 1,000 mls @ 999 mls/hr IV .Q1H1M STA Stop: 12/29/16 19:55 Last Admin: 12/29/16 19:39 Dose: Not Given Non-Admin Reason: Patient Refused Ondansetron HCl (Zofran Inj) 4 mg IVP STAT STA Stop: 12/29/16 18:56 Last Admin: 12/29/16 19:39 Dose: Not Given Non-Admin Reason: Patient Refused - Scribe Statement The provider has reviewed the documentation as recorded by the Ralph Warren Provider Scribe Attestation: All medical record entries made by the Nicoleibfatuma were at my direction and personally dictated by me. I have reviewed the chart and agree that the record accurately reflects my personal performance of the history, physical exam, medical decision making, and the department course for this patient. I have also personally directed, reviewed, and agree with the discharge instructions and disposition. Disposition/Present on Arrival - Present on Arrival Any Indicators Present on Arrival: No History of DVT/PE: No History of Uncontrolled Diabetes: No Urinary Catheter: No History of Decub. Ulcer: No History Surgical Site Infection Following: None - Disposition Have Diagnosis and Disposition been Completed?: Yes Diagnosis: Abdominal pain Disposition: ELOPEMENT - ER ONLY Disposition Time: 09:00 Condition: UNKNOWN Referrals: Arnold Mantilla, [Primary Care Provider] - Follow up with primary
== END 2016-12-29 19:40 | disposition left against medical advice (07) ==
LOC: ED 18:00
DX: R10.9 Unspecified abdominal pain (principal); O26.91 Pregnancy related conditions, unspecified, first trimester; Z3A.01 Less than 8 weeks gestation of pregnancy

== ENCOUNTER 2017-03-03 18:25 | Emergency (ER) | payer MEDICAID ==
[2017-03-03 18:53] VITALS: BMI 27.0
[2017-03-03] MEDS ORDERED: HYDROmorphone 2 mg/ml ISec IVP STA ×2 (19:03→23:51)
[2017-03-03] MEDS ORDERED: Sodium Chloride 0.9% 1,000 ML IV STA (19:03)
--- NOTE | 2017-03-03 19:09 | ED PDOC ---
Arrival/HPI <Porfirio Rodriguez - Last Filed: 03/04/17 01:10> - General Historian: Patient <Pool Villalpando - Last Filed: 03/06/17 16:49> - General Chief Complaint: Pain, Chronic Time Seen by Provider: 03/03/17 18:27 - History of Present Illness Narrative History of Present Illness (Text): 03/03/17 19:07 31 y/o female, pmh including sickle cell crisis, allergic to multiple pain medication except dilaudid, c/o lt. foot 5th digit toe/shoulder and sickle cell crisis. Pt. stated that she hit her lt. foot 5th digit toe and shoulder on the door this morning accidentally with no broken skin. Pt. stated that she has sickle cell flare ups for the past 3-4 days, generalized bodyache, no fever or chills, no coughing or night sweat, no pelvic pain, no vaginal bleeding or discharge, has dilaudid po at home, no numbness or tingling, no neck stiffness, no other medical or psychological complaints. (Pool Villalpando) Past Medical History - Provider Review Nursing Documentation Reviewed: Yes - Infectious Disease Hx of Infectious Diseases: None - Tetanus Immunization Tetanus Immunization: Up to Date - Cardiac Hx Cardiac Disorders: Yes Hx Hypertension: Yes - Pulmonary Hx Respiratory Disorders: No - Neurological Hx Neurological Disorder: No - HEENT Hx HEENT Disorder: No - Renal Hx Renal Disorder: No - Endocrine/Metabolic Hx Endocrine Disorders: Yes Hx Hypothyroidism: Yes - Hematological/Oncological Hx Blood Disorders: Yes Hx Sickle Cell Disease: Yes - Integumentary Hx Dermatological Disorder: No - Musculoskeletal/Rheumatological Hx Falls: Yes - Gastrointestinal Hx Gastrointestinal Disorders: No - Genitourinary/Gynecological Hx Genitourinary Disorders: Yes (c/s x2, removal of left fallopian tube for ectopic pregnacy) Hx Urinary Tract Infection: Yes Other/Comment: ovarian cyst - Psychiatric Hx Psychophysiologic Disorder: Yes Hx Anxiety: Yes Hx Substance Use: No - Past Surgical History Past Surgical History: No Previous - Surgical History Other/Comment: Port in L chest - Anesthesia Hx Anesthesia: Yes Hx Anesthesia Reactions: No Hx Malignant Hyperthermia: No - Suicidal Assessment Feels Threatened In Home Enviroment: No <Pool Villalpando - Last Filed: 03/06/17 16:49> Family/Social History - Physician Review Nursing Documentation Reviewed: Yes Family/Social History: Unknown Family HX Smoking Status: Never Smoked Hx Alcohol Use: Yes Hx Substance Use: No Hx Substance Use Treatment: No <Pool Villalpando - Last Filed: 03/06/17 16:49> Allergies/Home Meds <Porfirio Rodriguez - Last Filed: 03/04/17 01:10> <Pool Villalpando - Last Filed: 03/06/17 16:49> Allergies/Adverse Reactions: Allergies acetaminophen [From Percocet] Allergy (Verified 03/06/17 15:23) RASH ketorolac tromethamine [From Toradol] Allergy (Verified 03/06/17 15:20) ITCHING morphine Allergy (Verified 03/06/17 15:20) RASH oxycodone [From Percocet] Allergy (Verified 03/06/17 15:23) RASH Penicillins Allergy (Verified 03/06/17 15:20) RASH tramadol Allergy (Verified 03/06/17 15:20) DIZZINESS Home Medications: Home Meds Medication Instructions Recorded Confirmed Albuterol HFA [Ventolin HFA 90 2 puff IH [id number] PRN 12/22/16 03/06/17 mcg/actuation (8 g)] Folic Acid 1 mg PO DAILY 12/22/16 03/06/17 HYDROmorphone [Dilaudid] 4 mg PO PRN PRN 12/22/16 03/06/17 Metoprolol Tartrate 25 mg PO BID 12/22/16 03/06/17 Propylthiouracil 100 mg PO TID 12/22/16 03/06/17 Review of Systems - Review of Systems Constitutional: absent: Fatigue Eyes: absent: Vision Changes ENT: absent: Hearing Changes Respiratory: absent: SOB, Cough Cardiovascular: absent: Chest Pain Gastrointestinal: absent: Abdominal Pain, Diarrhea, Nausea, Vomiting Musculoskeletal: Arthralgias, Myalgias. absent: Back Pain, Neck Pain, Joint Swelling Skin: absent: Rash, Pruritis, Skin Lesions <Pool Villalpando - Last Filed: 03/06/17 16:49> Physical Exam Vital Signs Reviewed: Yes Temperature: Afebrile Blood Pressure: Normal Pulse: Tachycardic Respiratory Rate: Normal Appearance: Positive for: Well-Appearing, Non-Toxic Pain Distress: Severe Mental Status: Positive for: Alert and Oriented X 3 - Systems Exam Head: Present: Atraumatic, Normocephalic Pupils: Present: PERRL Extroacular Muscles: Present: EOMI Conjunctiva: Present: Normal Mouth: Present: Moist Mucous Membranes Neck: Present: Normal Range of Motion Respiratory/Chest: Present: Clear to Auscultation, Good Air Exchange. No: Respiratory Distress, Accessory Muscle Use Cardiovascular: Present: Regular Rate and Rhythm, Normal S1, S2. No: Murmurs Abdomen: Present: Normal Bowel Sounds. No: Tenderness, Distention, Peritoneal Signs Back: Present: Normal Inspection Upper Extremity: Present: Normal Inspection, Other (Lt. shoulder: +ttp on the anterior shoulder joint, skin intact, no deformity or step off, FROM without limitation, sensationin intact, motor 5/5, +radial pulse, capillary refill< 2 seconds, neurovascular intact. ). No: Cyanosis, Edema Lower Extremity: Present: Normal Inspection, Other (Lt. foot: +ttp on the 5th toe region, skin intact, no laceration or abrasion, FROM without limitation, sensation intact, motor 5/5, +DPPT pulses, capillary refill< 2 seconds, neurovascular intact. ). No: Edema Neurological: Present: GCS=15, Speech Normal, Motor Func Grossly Intact, Gait Normal, Memory Normal Skin: Present: Warm, Dry, Normal Color. No: Rashes Psychiatric: Present: Alert, Oriented x 3, Normal Insight, Normal Concentration <Pool Villalpando Q - Last Filed: 03/06/17 16:49> Vital Signs Temp Pulse Resp BP Pulse Ox 03/04/17 07:42 98.4 F 87 18 111/70 97 03/04/17 05:50 94 H 18 107/56 L 100 03/04/17 03:09 104 H 105/67 03/03/17 18:50 98.8 F 114 H 19 117/63 99 Medical Decision Making <Porfirio Rodriguez - Last Filed: 03/04/17 01:10> - Lab Interpretations I have reviewed the lab results: Yes Interpretation: Abnormal lab values (wbc 18.8, reticulocyte 11.69) - RAD Interpretation Director Child Abuse Therapy: Radiologist <Pool Villalpando - Last Filed: 03/06/17 16:49> ED Course and Treatment: 03/03/17 19:10 -labs/reticulocyte count -xrays -IVF/dilaudid/oxygen -quality assurance monitor -observe and reassess 03/03/17 20:20 -Me and the ACCOUNTING CLERKS SUPERVISOR Obgilberto which incidentally noted that the urine test is positive, no medication or radiology study performed. I discussed with DR. Stewart which she suggest to let the patient with the risk and benefits explained to the patient. -Pt. stated that she knew she is 13 weeks with scheduled for on this week thursday, willing to take the risk of defect/miscarriage/ disability/pain for taking all the medications and radiology studies. -We will proceed with the medication and treatment as originally planned. 03/03/17 23:40 -Pt. request more pain med, IVF and dilaudid ordered. -Pending labs and radiology studies. 03/04/17 00:47 -Chest x-ray: no active disease base on the wet read -Lt. foot 5th toe xray: +fracture with displacement, mango tape and splinted with neurovascular intact. -Lt. shoulder: no fracture or dislocation -Labs show no acute findings except wbc 18.8, blood culture ordered. -Reticulocyte count show 11.69 -Pt. was still having pain, additional dilaudid 2mg and request benadryl as well which stated that will help with her pain. -Pt. still having pain, will need to be admitted -Case discussed with Dr. Rodriguez which is the current ER attending, he agreed and will put in observation order. -Dr. Ciarra de león and the biomedical photographer Dr. Zeng is awared of the case/ labs/ status and fracture of the toe. 03/04/17 01:04 -I discussed with Dr. Lafleur about the case/labs/radiology result, (Pool Villalpando ) - Lab Interpretations Microbiology Results: Microbiology Results 03/04/17 02:30 Blood-Venous Blood Culture - Preliminary NO GROWTH AFTER 48 HOURS 03/04/17 02:00 Blood-Venous Blood Culture - Preliminary NO GROWTH AFTER 48 HOURS Lab Results: 03/03/17 23:35 03/03/17 23:35 Lab Results 03/04/17 01:01: Urine Opiates Screen Negative, Urine Methadone Screen Negative, Ur Barbiturates Screen Negative, Ur Phencyclidine Scrn Negative, Ur Amphetamines Screen Negative, U Benzodiazepines Scrn Negative, U Oth Cocaine Metabols Negative, U Cannabinoids Screen Negative 03/03/17 23:37: Urine Color Yellow, Urine Appearance Sl cloudy, Urine pH 6.5, Ur Specific [place] 1.010, Urine Protein Trace H, Urine Glucose (UA) Negative, Urine Ketones Negative, Urine Blood Trace-intact H, Urine Nitrate Negative, Urine Bilirubin Negative, Urine Urobilinogen 0.2, Ur Leukocyte Esterase Negative , Urine RBC 0 - 2, Urine WBC 0 - 2, Ur Epithelial Cells 1 - 3 03/03/17 23:35: Beta HCG, Quant 74819.00 H 03/03/17 23:35: Sodium 138, Potassium 3.7, Chloride 106, Carbon Dioxide 22, Anion Gap 14, BUN 6 L, Creatinine 0.5, Est GFR ( Amer) > 60, Est GFR (Non -Af Amer) > 60, Random Glucose 88, Calcium 10.1, Total Bilirubin 2.3 H, AST 70 H , ALT 53, Alkaline Phosphatase 97, Total Protein 7.6, Albumin 4.2, Globulin 3.4 , Albumin/Globulin Ratio 1.2 03/03/17 23:35: WBC 18.8 H D, RBC 3.04 L, Hgb 9.4 L, Hct 26.1 L, MCV 85.9, MCH 30.9, MCHC 36.0, RDW 16.0 H, Plt Count 356, MPV 8.6, Gran % 54.9, Lymph % (Auto ) 32.0, Towner % (Auto) 10.0 H, Eos % (Auto) 2.9, Baso % (Auto) 0.2, Gran # 10.31 H, Lymph # 6.0 H, Towner # 1.9 H, Eos # 0.6, Baso # 0.04, Retic Count 11.69 H* - RAD Interpretation Radiology Orders: 03/03/17 19:03 FOOT LEFT 5TH DIGIT (TOE) [RAD] Stat SHOULDER LEFT [RAD] Stat 03/03/17 19:05 CHEST PORTABLE [RAD] Stat Chest x-ray: inconclusive study, no obvious consolidation Lt. shoulder xray: no fracture or dislocation Lt. foot 5th toe: +toe fracture (Pool Villalpando) - Medication Orders Current Medication Orders: Discontinued Medications Albuterol/Ipratropium (Duoneb 3 Mg/0.5 Mg (3 Ml) Ud) 3 ml IH Q2H PRN PRN Reason: Shortness of Breath Diphenhydramine HCl (Benadryl) 25 mg IVP STAT STA Stop: 03/03/17 23:40 Last Admin: 03/03/17 23:52 Dose: 25 mg Folic Acid (Folic Acid) 1 mg PO DAILY LEAH Hydromorphone HCl (Dilaudid) 2 mg IVP STAT STA Stop: 03/03/17 19:04 Last Admin: 03/03/17 21:00 Dose: 2 mg Re-Assess: BANNER Pain Assessment Document 03/03/17 22:00 EKEOO (Rec: 03/04/17 05:55 [id number]) Pain Reassessment Is this a pain reassessment? Yes Hydromorphone HCl (Dilaudid) 2 mg IVP STAT STA Stop: 03/03/17 23:52 Last Admin: 03/04/17 00:01 Dose: 2 mg Re-Assess: BANNER Pain Assessment Document 03/04/17 01:01 EKEOO (Rec: 03/04/17 05:54 [id number]) Pain Reassessment Is this a pain reassessment? Yes Hydromorphone HCl (Dilaudid) 1 mg SC Q4H PRN PRN Reason: Pain, severe (8-10) Last Admin: 03/04/17 03:02 Dose: 1 mg Re-Assess: BANNER Pain Assessment Document 03/04/17 04:02 EKEOO (Rec: 03/04/17 05:52 [id number]) Pain Reassessment Is this a pain reassessment? Yes Sleep Is patient sleeping during reassessment? Yes Hydromorphone HCl (Dilaudid) 1 mg IVP Q4H PRN PRN Reason: Pain, severe (8-10) Last Admin: 03/04/17 06:15 Dose: 1 mg Sodium Chloride (Sodium Chloride 0.9%) 1,000 mls @ 999 mls/hr IV .Q1H1M STA Stop: 03/03/17 20:03 Last Admin: 03/03/17 23:53 Dose: 999 mls/hr Sodium Chloride (Sodium Chloride 0.9%) 1,000 mls @ 500 mls/hr IV .Q2H LEAH Sodium Chloride (Sodium Chloride 0.9%) 1,000 mls @ 125 mls/hr IV .Q8H LEAH Metoprolol Tartrate (Lopressor) 25 mg PO BID LEAH Last Admin: 03/04/17 03:09 Dose: Not Given Non-Admin Reason: Patient Refused Comments: Pt states she only take it, when her HR is above 115. She states the medication drops her HR too fast Pantoprazole Sodium (Protonix Inj) 40 mg IVP DAILY LEAH Propylthiouracil (Propylthiouracil) 100 mg PO TID LEAH - PA / [employer]DS SUPERVISOR / Resident Statement BRITNEY has reviewed & agrees with the documentation as recorded. BRITNEY has examined the patient and agrees with the treatment plan. <Porfirio Rodriguez - Last Filed: 03/04/17 01:10> - PA / [employer] AND [employer]DS SUPERVISOR / Resident Statement BRITNEY has reviewed & agrees with the documentation as recorded. <Pool Villalpando - Last Filed: 03/06/17 16:49> Disposition/Present on Arrival <Porfirio Rodriguez - Last Filed: 03/04/17 01:10> - Present on Arrival Any Indicators Present on Arrival: No History of DVT/PE: No History of Uncontrolled Diabetes: No Urinary Catheter: No History of Decub. Ulcer: No History Surgical Site Infection Following: None - Disposition Have Diagnosis and Disposition been Completed?: Yes Disposition Time: 00:49 Patient Plan: Observation, Telemetry <Pool Villalpando - Last Filed: 03/06/17 16:49> - Disposition Diagnosis: Toe fracture, Sickle cell crisis, , Sickle cell anemia Disposition: HOSPITALIZED Condition: STABLE Additional Instructions: 1. Patient was told to follow up with her PMD. 2. Patient was instructed to return to the emergency department if her symptoms remained or worsened. 3. Patient was educated on risks and threats to her life and her if she left the hospital against medical advice. 4. The patient understood and was agreeable with all instructions given. Referrals: PCP,NO [Primary Care Provider] -
[2017-03-03] MEDS ORDERED: DiphenhydrAMINE 50 mg/ml Inj IVP STA (23:39)
[2017-03-03] MEDS ORDERED: Sodium Chloride 0.9% 1,000 ML IV SCH (23:45)
[2017-03-03 23:50] LABS: BASO # 0.04 K/mm3 (0.0-2.0); BASO % 0.2 % (0.0-3.0); EOS # 0.6 (0.0-0.7); EOS % 2.9 % (1.5-5.0); GRAN # 10.31 (1.4-6.5); GRAN % 54.9 % (50.0-68.0); HEMOGLOBIN 9.4 g/dL (12.0-16.0); MEAN CELL VOLUME 85.9 fl (80.0-105.0); MEAN CORPUSCULAR HEMOGLOBIN 30.9 pg (25.0-35.0); MEAN PLATELET VOLUME 8.6 fl (7.0-11.0); MONO # 1.9 (0.1-0.6); PLATELET COUNT 356 10^3/uL (120.0-450.0); RBC 3.04 10^6/uL (3.5-6.1); WHITE BLOOD COUNT 18.8 10^3/ul (4.5-11.0)
[2017-03-03 23:59] LABS: ALB/GLOB RATIO 1.2 (1.1-1.8); ALBUMIN 4.2 g/dL (3.0-4.8); ALT/SGPT 53 U/L (7-56); AST/SGOT 70 U/L (15-39); BLOOD UREA NITROGEN 6 mg/dL (7-21); CALCIUM 10.1 mg/dL (8.4-10.5); GFR AFRICAN-AMERICAN > 60; GFR NON-AFRICAN AMERICAN > 60
[2017-03-04 01:05] LABS: PH,URINE 6.5 (4.7-8.0); URINE BILIRUBIN NEGATIVE (NEGATIVE); URINE BLOOD TRACE-INTACT (NEGATIVE); URINE GLUCOSE (UA) NEGATIVE (NEGATIVE); URINE LEUKOCYTE ESTERASE NEGATIVE Leu/uL (NEGATIVE); URINE NITRATE NEGATIVE (NEGATIVE); URINE PROTEIN TRACE mg/dL (<30 mg/dL); URINE UROBILINOGEN 0.2 E.U./dL (<1 E.U./dL)
[2017-03-04 01:17] LABS: URINE APPEARANCE SL CLOUDY (CLEAR); URINE COLOR YELLOW (YELLOW)
[2017-03-04 01:28] LABS: URINE RBC 0 - 2 /hpf (0-2); URINE WBC 0 - 2 /hpf (0-6)
[2017-03-04 01:39] LABS: BARBITURATES, UR NEGATIVE (NEGATIVE); BENZODIAZEPINES, UR NEGATIVE (NEGATIVE); OPIATES, UR NEGATIVE (NEGATIVE); PHENCYCLIDINE, UR NEGATIVE (NEGATIVE)
[2017-03-04] MEDS ORDERED: HYDROmorphone 1 mg/ml ISec SC PRN (02:36)
[2017-03-04] MEDS ORDERED: Albuterol-Ipratrop 3 mg / 0.5 (3 ml) UD IH PRN (02:36)
[2017-03-04] MEDS ORDERED: Albuterol HFA 90 mcg/actuation (8 g) IH PRN (02:44)
[2017-03-04] MEDS ORDERED: Sodium Chloride 0.9% 1,000 ML IV SCH (02:45)
--- NOTE | 2017-03-04 03:43 | CP.PCM.HP ---
<WALE FERGUSON - Last Filed: 03/04/17 03:48> History of Present Illness - History of Present Illness History of Present Illness: CC: Left 5th Toe Fracture/Sickle Cell Crisis HPI: Ms. Rivera is a 31 year old AA female with a past medical history of Sickle Cell Anemia (SS), avascular necrosis, chronic bronchitis, hyperthyroidism, HTN who presented with left fifth toe fracture and sickle cell crisis. Patient reports that for the past few weeks she has been having increased pain, specifically in her ribs and shoulders bilaterally, as well as a slight change in her chronic productive cough, from having clear phlegm to now having green/ yellow phlegm. Her home pain meds have relieving most of the pain but on 03/03, patient reports that she tripped over her sons toy and dislocated her toe. She "dealt" with this pain all day but then no longer could tolerate the pain from both her toe and her ongoing sickle cell crisis pain so she came to the ED. She was found to have a fractured left fifth toe on xray and was treated with a splint in the ED. Patient was found to have a positive test and admits to being 13 weeks . She claims that she has known about the for a few weeks and plans to have the terminated in [place] on Thursday morning. She states that the is the reason that she is in so much pain and she can not tolerate the pain long enough to have a full term . Currently reports that her pain has not changed in intensity, quality or location. Patient denies headache, vertigo, LOC, fever, weight loss, changes in her vision, angina pectoris, shortness of breath, abdominal pain, N/V, diarrhea , constipation or any numbness/tingling/weakness of any extremities. PMH: sickle cell (SS), avascular necrosis, chronic bronchitis, hyperthyroidism, HTN PSH: , port-cath placement, D&C Family: Brother-Sickle cell, Mother-Renal carcinoma, Father-DM Social: smokes 1 cig/day, drink 2 cups of alcohol per week, denies illicit drug use Allergies: ketorolac, morphine, penicillins, tramadol Home Meds: As per MAR Present on Admission - Present on Admission Any Indicators Present on Admission: No Review of Systems - Review of Systems Review of Systems: Please refer to HPI Past Patient History - Infectious Disease Hx of Infectious Diseases: None - Tetanus Immunizations Tetanus Immunization: Up to Date - Past Medical History & Family History Past Medical History?: Yes - Past Social History Smoking Status: Never Smoked - CARDIAC Hx Cardiac Disorders: Yes Hx Hypertension: Yes - PULMONARY Hx Respiratory Disorders: No - NEUROLOGICAL Hx Neurological Disorder: No - HEENT Hx HEENT Problems: No - RENAL Hx Chronic Kidney Disease: No - ENDOCRINE/METABOLIC Hx Endocrine Disorders: Yes Hx Hypothyroidism: Yes - HEMATOLOGICAL/ONCOLOGICAL Hx Blood Disorders: Yes Hx Sickle Cell Disease: Yes - INTEGUMENTARY Hx Dermatological Problems: No - MUSCULOSKELETAL/RHEUMATOLOGICAL Hx Falls: Yes - GASTROINTESTINAL Hx Gastrointestinal Disorders: No - GENITOURINARY/GYNECOLOGICAL Hx Genitourinary Disorders: Yes (c/s x2, removal of left fallopian tube for ectopic pregnacy) Hx Urinary Tract Infection: Yes Other/Comment: ovarian cyst - PSYCHIATRIC Hx Psychophysiologic Disorder: Yes Hx Anxiety: Yes Hx Substance Use: No - SURGICAL HISTORY Other/Comment: Port in L chest - ANESTHESIA Hx Anesthesia: Yes Hx Anesthesia Reactions: No Hx Malignant Hyperthermia: No Meds Allergies/Adverse Reactions: Allergies Allergy/AdvReac Type Severity Reaction Status Date / Time ketorolac tromethamine Allergy ITCHING Verified 03/03/17 18:50 [From Toradol] morphine Allergy RASH Verified 03/03/17 18:50 Penicillins Allergy RASH Verified 03/03/17 18:50 tramadol Allergy DIZZINESS Verified 03/03/17 18:50 Physical Exam - Constitutional Appears: No Acute Distress - Head Exam Head Exam: NORMAL INSPECTION, NORMOCEPHALIC - Eye Exam Eye Exam: EOMI, Normal appearance, PERRL Pupil Exam: NORMAL ACCOMODATION - ENT Exam ENT Exam: Mucous Membranes Moist, Normal Exam - Neck Exam Neck exam: Positive for: Full Rom, Normal Inspection. Negative for: Lymphadenopathy, Tenderness - Respiratory Exam Respiratory Exam: Chest Wall Tenderness, Clear to Auscultation Bilateral, NORMAL BREATHING PATTERN. absent: Rales, Rhonchi, Wheezes, Respiratory Distress - Cardiovascular Exam Cardiovascular Exam: REGULAR RHYTHM, RRR, +S1, +S2, Systolic Murmur. absent: Tachycardia - GI/Abdominal Exam GI & Abdominal Exam: Normal Bowel Sounds, Soft. absent: Distended, Firm, Guarding, Tenderness - Exam Exam: absent: Bladder Distension - Extremities Exam Extremities exam: Positive for: normal capillary refill, tenderness, pedal pulses present. Negative for: calf tenderness, joint swelling, pedal edema Additional comments: L foot in splint - Back Exam Back exam: absent: CVA tenderness (L), CVA tenderness (R) - Neurological Exam Neurological exam: Alert, Oriented x3 - Psychiatric Exam Psychiatric exam: Normal Affect, Normal Mood - Skin Skin Exam: Dry, Intact, Normal Color, Warm Results - Vital Signs Recent Vital Signs: Last Vital Signs Temp 98.8 F 03/03/17 18:50 Pulse 104 H 03/04/17 03:09 Resp 19 03/03/17 18:50 BP 105/67 03/04/17 03:09 Pulse Ox 99 03/03/17 18:50 - Labs Result Diagrams: 03/03/17 23:35 03/03/17 23:35 Assessment & Plan - Assessment and Plan (Free Text) Assessment: 31 year old AA female with a past medical history of Sickle Cell Anemia (SS), avascular necrosis, chronic bronchitis, hyperthyroidism, HTN who presented with left fifth toe fracture and sickle cell crisis Plan: 1. Sickle Cell Crisis -CXR: No Active Disease -Reticulocytes: 11.69 -Dilaudid 1mg SC Q4H for pain -IVF: NS at 125mls/hr -O2 via NC at 4L/min -cont folate -Hem/Onc consulted, will follow recommendations -will cont to monitor with daily CBC's 2. Left 5th Toe Fracture -splinted in ED -pain control as above 3. First Trimester -patient wants no treatment to be spared to prevent defects -appointment to terminate on 03/09 -regular diet with protocols ordered -b-HCG pending 4. History of Chronic Bronchitis -Duonebs Q2H PRN -cont albuterol 5. History of HTN -cont metoprolol 6. History of Hypothyroidism -cont PTU 7. GI/DVT Prophylaxis -Protonix/scd's Patient seen and case discussed with attending, Dr. Lafleur. - Date & Time Date: 03/04/17 Time: 02:30 <Richard Lafleur - Last Filed: 03/04/17 07:24> Results - Vital Signs Recent Vital Signs: Last Vital Signs Temp 98.8 F 03/03/17 18:50 Pulse 94 H 03/04/17 05:50 Resp 18 03/04/17 05:50 BP 107/56 L 03/04/17 05:50 Pulse Ox 100 03/04/17 05:50 - Labs Result Diagrams: 03/03/17 23:35 03/03/17 23:35 Attending/Attestation - Attestation I have personally seen and examined this patient.: Yes I have fully participated in the care of the patient.: Yes I have reviewed all pertinent clinical information: Yes Notes (Text): Assessment * Fifth toe fracture splinted in ER * c/o shoulder, neck pain, probably radiculopathy * Sickle cell crisis unlikely * Leucocytosis, clinically no signs of infection, and patient not in distress * 13 wks , pt plans to abort in coming wk. Plan * ivf, prn dilaudid, observe, orthopedic eval. * see orders for detail.
[2017-03-04 05:51] VITALS: RESP 18
[2017-03-04] MEDS ORDERED: HYDROmorphone 1 mg/ml ISec IVP PRN (06:07)
--- NOTE | 2017-03-04 07:15 | RAD ---
PROCEDURE: Radiographs of the Left Shoulder HISTORY: lt. shoulder pain s/p fall COMPARISON: No prior. FINDINGS: BONES: Normal. No fracture. JOINTS: Glenohumeral joints preserved. Minimal acromioclavicular arthrosis SOFT TISSUES: Normal. OTHER FINDINGS: Port-A-Cath projecting over left thorax- tip not visually included IMPRESSION: No fracture dislocation
--- NOTE | 2017-03-04 07:21 | RAD ---
HISTORY: medical clearance COMPARISON: 09/05/2016 FINDINGS: LUNGS: Inspiration is shallow. If a small bibasilar opacities/blending prominent bronchovascular markings here are slight interval changes. Left small pleural parenchymal thickening/small effusion possible. A tiny right pleural effusion also possible PLEURA: Small pleural effusions -left greater than right -possible. , no pneumothorax apparent. CARDIOVASCULAR: Cardiomegaly -unchanged. Its Port-A-Cath inserted tip in superior vena cava-right atrial junction OSSEOUS STRUCTURES: Bilateral acromioclavicular joint space narrowing/arthrosis. Nonspecific cystic changes over right humeral head VISUALIZED UPPER ABDOMEN: Normal. OTHER FINDINGS: None. IMPRESSION: Indeterminate significance of mild bibasilar prominent bronchovascular markings in this shallow inspiration study. . Minimal patchy infiltrates and/or atelectasis with interval minimal effusions are not excluded Consider repeat chest x-ray PA and lateral with greater inspiration
--- NOTE | 2017-03-04 07:25 | RAD ---
PROCEDURE: HISTORY: lt. foot 5th toe COMPARISON: None TECHNIQUE: Three views FINDINGS: There is slight deformity of the 5th proximal phalanx consistent with a oblique apparently complete of this shaft the apex is angulated- medially The age of the fractures not clear - no prominent soft tissue swelling is noted. As for any superior inferior displacement, overlap of bones on lateral view impedes this assessment. No marked change between the frontal and oblique views is perceived. No intra-articular extension suggested. Multiple accessory ossification centers - at least two os tibial externum and one os peroneum noted IMPRESSION: From fracture 5th proximal phalangeal shaft -age indeterminate. Medial apical angulation deformity no intra-articular extension. No dislocation
[2017-03-04 07:42] VITALS: BP 111/70; PULSE 87; TEMP 98.4; O2SAT 97
--- NOTE | 2017-03-04 15:05 | CP.PCM.DIS ---
Addendum entered and electronically signed by Kalpesh Herrera DO 03/04/17 15:12: Attending provider:Yariel Jaime MD Original Note: <Kalpesh Herrera - Last Filed: 03/04/17 14:59> Provider - Provider Date of Admission: 03/03/2017 Attending physician: Addison Primary care physician: NO PRIMARY CARE PROVIDER Time Spent in preparation of Discharge (in minutes): 30 Hospital Course - Lab Results Lab Results: Most Recent Lab Values WBC 18.8 10^3/ul (4.5-11.0) H D 03/03/17 23:35 RBC 3.04 10^6/uL (3.5-6.1) L 03/03/17 23:35 Hgb 9.4 g/dL (12.0-16.0) L 03/03/17 23:35 Hct 26.1 % (36.0-48.0) L 03/03/17 23:35 MCV 85.9 fl (80.0-105.0) 03/03/17 23:35 MCH 30.9 pg (25.0-35.0) 03/03/17 23:35 MCHC 36.0 g/dl (31.0-37.0) 03/03/17 23:35 RDW 16.0 % (11.5-14.5) H 03/03/17 23:35 Plt Count 356 10^3/uL (120.0-450.0) 03/03/17 23:35 MPV 8.6 fl (7.0-11.0) 03/03/17 23:35 Gran % 54.9 % (50.0-68.0) 03/03/17 23:35 Lymph % (Auto) 32.0 % (22.0-35.0) 03/03/17 23:35 [place] % (Auto) 10.0 % (1.0-6.0) H 03/03/17 23:35 Eos % (Auto) 2.9 % (1.5-5.0) 03/03/17 23:35 Baso % (Auto) 0.2 % (0.0-3.0) 03/03/17 23:35 Gran # 10.31 (1.4-6.5) H 03/03/17 23:35 Lymph # 6.0 (1.2-3.4) H 03/03/17 23:35 [place] # 1.9 (0.1-0.6) H 03/03/17 23:35 Eos # 0.6 (0.0-0.7) 03/03/17 23:35 Baso # 0.04 K/mm3 (0.0-2.0) 03/03/17 23:35 Retic Count 11.69 % (0.5-1.5) H* 03/03/17 23:35 Sodium 138 mmol/L (132-148) 03/03/17 23:35 Potassium 3.7 mmol/L (3.6-5.0) 03/03/17 23:35 Chloride 106 mmol/L (98-107) 03/03/17 23:35 Carbon Dioxide 22 mmol/L (21-33) 03/03/17 23:35 Anion Gap 14 (10-20) 03/03/17 23:35 BUN 6 mg/dL (7-21) L 03/03/17 23:35 Creatinine 0.5 mg/dL (0.5-1.4) 03/03/17 23:35 Est GFR ( Amer) > 60 03/03/17 23:35 Est GFR (Non-Af Amer) > 60 03/03/17 23:35 Random Glucose 88 mg/dL (70-110) 03/03/17 23:35 Calcium 10.1 mg/dL (8.4-10.5) 03/03/17 23:35 Total Bilirubin 2.3 mg/dL (0.2-1.3) H 03/03/17 23:35 AST 70 U/L (15-39) H 03/03/17 23:35 ALT 53 U/L (7-56) 03/03/17 23:35 Alkaline Phosphatase 97 U/L (38-133) 03/03/17 23:35 Total Protein 7.6 g/dL (5.8-8.3) 03/03/17 23:35 Albumin 4.2 g/dL (3.0-4.8) 03/03/17 23:35 Globulin 3.4 gm/dL 03/03/17 23:35 Albumin/Globulin Ratio 1.2 (1.1-1.8) 03/03/17 23:35 Beta HCG, Quant 37384.00 mIU/mL (0-6.15) H 03/03/17 23:35 Urine Color Yellow (YELLOW) 03/03/17 23:37 Urine Appearance Sl cloudy (CLEAR) 03/03/17 23:37 Urine pH 6.5 (4.7-8.0) 03/03/17 23:37 Ur Specific [place] 1.010 (1.005-1.035) 03/03/17 23:37 Urine Protein Trace mg/dL (<30 mg/dL) H 03/03/17 23:37 Urine Glucose (UA) Negative mg/dL (NEGATIVE) 03/03/17 23:37 Urine Ketones Negative mg/dL (NEGATIVE) 03/03/17 23:37 Urine Blood Trace-intact (NEGATIVE) H 03/03/17 23:37 Urine Nitrate Negative (NEGATIVE) 03/03/17 23:37 Urine Bilirubin Negative (NEGATIVE) 03/03/17 23:37 Urine Urobilinogen 0.2 E.U./dL (<1 E.U./dL) 03/03/17 23:37 Ur Leukocyte Esterase Negative Larry/uL (NEGATIVE) 03/03/17 23:37 Urine RBC 0 - 2 /hpf (0-2) 03/03/17 23:37 Urine WBC 0 - 2 /hpf (0-6) 03/03/17 23:37 Ur Epithelial Cells 1 - 3 /hpf (0-5) 03/03/17 23:37 Urine Opiates Screen Negative (NEGATIVE) 03/04/17 01:01 Urine Methadone Screen Negative (NEGATIVE) 03/04/17 01:01 Ur Barbiturates Screen Negative (NEGATIVE) 03/04/17 01:01 Ur Phencyclidine Scrn Negative (NEGATIVE) 03/04/17 01:01 Ur Amphetamines Screen Negative (NEGATIVE) 03/04/17 01:01 U Benzodiazepines Scrn Negative (NEGATIVE) 03/04/17 01:01 U Oth Cocaine Metabols Negative (NEGATIVE) 03/04/17 01:01 U Cannabinoids Screen Negative (NEGATIVE) 03/04/17 01:01 - Hospital Course Hospital Course: Pt is a 31 year AA female with pmh of sickle cell anemia (SS), avascular necrosis, chronic bronchitis, hyperthyroidism, HTN who presented to [facility] with a left fifth toe fracture and sickle cell crisis. Patient was evaluated and found to have positive test. Patient reports knowing of her and reported she was scheduled for an elective in [place] on Thursday of the coming week. The patient was treated for her pain with appropriate medications. She was planned to be admitted to the hospital for further evaluation and management of her symptoms. The patient reported that her pain was not being adequately controlled and requested to sign out of the hospital AMA. She was educated on the risks and threat to her life and to her if she signed out AMA. She was understanding and signed appropriate paperwork. - Date & Time of H&P Date of H&P: 03/04/17 Time of H&P: 03:28 Discharge Exam - Cardiovascular Exam Cardiovascular Exam: +S1 - Additional Findings Additional findings: Physical exam was unable to be completed due to patient signing out AMA Discharge Plan - Follow Up Plan Condition: STABLE Disposition: HOSPITALIZED Additional Instructions: 1. Patient was told to follow up with her PMD. 2. Patient was instructed to return to the emergency department if her symptoms remained or worsened. 3. Patient was educated on risks and threats to her life and her if she left the hospital against medical advice. 4. The patient understood and was agreeable with all instructions given. Referrals: PCP,NO [Primary Care Provider] - <Yariel Jaime - Last Filed: 03/04/17 15:30> Provider - Provider Primary care physician: NO PRIMARY CARE PROVIDER Hospital Course - Lab Results Lab Results: Most Recent Lab Values WBC 18.8 10^3/ul (4.5-11.0) H D 03/03/17 23:35 RBC 3.04 10^6/uL (3.5-6.1) L 03/03/17 23:35 Hgb 9.4 g/dL (12.0-16.0) L 03/03/17 23:35 Hct 26.1 % (36.0-48.0) L 03/03/17 23:35 MCV 85.9 fl (80.0-105.0) 03/03/17 23:35 MCH 30.9 pg (25.0-35.0) 03/03/17 23:35 MCHC 36.0 g/dl (31.0-37.0) 03/03/17 23:35 RDW 16.0 % (11.5-14.5) H 03/03/17 23:35 Plt Count 356 10^3/uL (120.0-450.0) 03/03/17 23:35 MPV 8.6 fl (7.0-11.0) 03/03/17 23:35 Gran % 54.9 % (50.0-68.0) 03/03/17 23:35 Lymph % (Auto) 32.0 % (22.0-35.0) 03/03/17 23:35 [place] % (Auto) 10.0 % (1.0-6.0) H 03/03/17 23:35 Eos % (Auto) 2.9 % (1.5-5.0) 03/03/17 23:35 Baso % (Auto) 0.2 % (0.0-3.0) 03/03/17 23:35 Gran # 10.31 (1.4-6.5) H 03/03/17 23:35 Lymph # 6.0 (1.2-3.4) H 03/03/17 23:35 [place] # 1.9 (0.1-0.6) H 03/03/17 23:35 Eos # 0.6 (0.0-0.7) 03/03/17 23:35 Baso # 0.04 K/mm3 (0.0-2.0) 03/03/17 23:35 Retic Count 11.69 % (0.5-1.5) H* 03/03/17 23:35 Sodium 138 mmol/L (132-148) 03/03/17 23:35 Potassium 3.7 mmol/L (3.6-5.0) 03/03/17 23:35 Chloride 106 mmol/L (98-107) 03/03/17 23:35 Carbon Dioxide 22 mmol/L (21-33) 03/03/17 23:35 Anion Gap 14 (10-20) 03/03/17 23:35 BUN 6 mg/dL (7-21) L 03/03/17 23:35 Creatinine 0.5 mg/dL (0.5-1.4) 03/03/17 23:35 Est GFR ( Amer) > 60 03/03/17 23:35 Est GFR (Non-Af Amer) > 60 03/03/17 23:35 Random Glucose 88 mg/dL (70-110) 03/03/17 23:35 Calcium 10.1 mg/dL (8.4-10.5) 03/03/17 23:35 Total Bilirubin 2.3 mg/dL (0.2-1.3) H 03/03/17 23:35 AST 70 U/L (15-39) H 03/03/17 23:35 ALT 53 U/L (7-56) 03/03/17 23:35 Alkaline Phosphatase 97 U/L (38-133) 03/03/17 23:35 Total Protein 7.6 g/dL (5.8-8.3) 03/03/17 23:35 Albumin 4.2 g/dL (3.0-4.8) 03/03/17 23:35 Globulin 3.4 gm/dL 03/03/17 23:35 Albumin/Globulin Ratio 1.2 (1.1-1.8) 03/03/17 23:35 Beta HCG, Quant 21284.00 mIU/mL (0-6.15) H 03/03/17 23:35 Urine Color Yellow (YELLOW) 03/03/17 23:37 Urine Appearance Sl cloudy (CLEAR) 03/03/17 23:37 Urine pH 6.5 (4.7-8.0) 03/03/17 23:37 Ur Specific [place] 1.010 (1.005-1.035) 03/03/17 23:37 Urine Protein Trace mg/dL (<30 mg/dL) H 03/03/17 23:37 Urine Glucose (UA) Negative mg/dL (NEGATIVE) 03/03/17 23:37 Urine Ketones Negative mg/dL (NEGATIVE) 03/03/17 23:37 Urine Blood Trace-intact (NEGATIVE) H 03/03/17 23:37 Urine Nitrate Negative (NEGATIVE) 03/03/17 23:37 Urine Bilirubin Negative (NEGATIVE) 03/03/17 23:37 Urine Urobilinogen 0.2 E.U./dL (<1 E.U./dL) 03/03/17 23:37 Ur Leukocyte Esterase Negative Larry/uL (NEGATIVE) 03/03/17 23:37 Urine RBC 0 - 2 /hpf (0-2) 03/03/17 23:37 Urine WBC 0 - 2 /hpf (0-6) 03/03/17 23:37 Ur Epithelial Cells 1 - 3 /hpf (0-5) 03/03/17 23:37 Urine Opiates Screen Negative (NEGATIVE) 03/04/17 01:01 Urine Methadone Screen Negative (NEGATIVE) 03/04/17 01:01 Ur Barbiturates Screen Negative (NEGATIVE) 03/04/17 01:01 Ur Phencyclidine Scrn Negative (NEGATIVE) 03/04/17 01:01 Ur Amphetamines Screen Negative (NEGATIVE) 03/04/17 01:01 U Benzodiazepines Scrn Negative (NEGATIVE) 03/04/17 01:01 U Oth Cocaine Metabols Negative (NEGATIVE) 03/04/17 01:01 U Cannabinoids Screen Negative (NEGATIVE) 03/04/17 01:01 Attending/Attestation - Attestation I have personally seen and examined this patient.: No I have fully participated in the care of the patient.: No I have reviewed all pertinent clinical information, including history, physical exam and plan: Yes Notes (Text): 03/04/17 15:26 ATTENDING NOTE: Patient signed against medical advice from the ER. the patient was not seen by Me. Patient with the history of sickle cell disease with opiate dependency is admitted for left toe fracture and . 03/04/17 15:30
== END 2017-03-04 07:44 | disposition left against medical advice (07) ==
LOC: ED 18:25 → ERH 03-04 01:08 → UNDOADMOB 03-04 01:08 → ED 03-04 07:44
DX: O99.011 Anemia complicating pregnancy, first trimester (principal); D57.00 Hb-SS disease with crisis, unspecified; Z3A.13 13 weeks gestation of pregnancy; S92.512A Displaced fracture of proximal phalanx of left lesser toe(s), initial encounter for closed fracture; W22.8XXA Striking against or struck by other objects, initial encounter; I10 Essential (primary) hypertension; E05.90 Thyrotoxicosis, unspecified without thyrotoxic crisis or storm
CPT/HCPCS: 71010; 73030; 73660; 80053; 80324; 80345; 80346; 80349; 80353; 80358; 80361; 81001; 83992; 84702; 85025; 85044; 87040; 96372; 96374; 96375; 96376; 99285; J1170; J1200; J7040

== ENCOUNTER 2017-03-06 15:00 | Inpatient (IN) | payer MEDICAID ==
--- NOTE | 2017-03-06 15:47 | ED PDOC ---
Arrival/HPI - General Chief Complaint: Medical Clearance Time Seen by Provider: 03/06/17 15:08 - History of Present Illness Narrative History of Present Illness (Text): 31F c/o "pain all over my body" which she says she get "once a month" and is consistent with her usual sickle cell pain. she also c/o pain at her port site for the alst several days. she reports chronic cough due to "chronic bronchitis. " no measured fever. she admits to being approx 13 weeks but says she has an scheduled on Thursday morning and does not wish to forgo any medications or exams that may harm the . she was admitted here a couple days ago at which time she s/o ama. she tells me she left bc she had to take care of her children. Past Medical History - Infectious Disease Hx of Infectious Diseases: None - Tetanus Immunization Tetanus Immunization: Up to Date - Reproductive Menopause: No - Cardiac Hx Cardiac Disorders: Yes Hx Hypertension: Yes - Pulmonary Hx Respiratory Disorders: No - Neurological Hx Neurological Disorder: No - HEENT Hx HEENT Disorder: No - Renal Hx Renal Disorder: No - Endocrine/Metabolic Hx Endocrine Disorders: Yes Hx Hypothyroidism: Yes - Hematological/Oncological Hx Blood Disorders: Yes Hx Sickle Cell Disease: Yes - Integumentary Hx Dermatological Disorder: No - Musculoskeletal/Rheumatological Hx Falls: Yes - Gastrointestinal Hx Gastrointestinal Disorders: No - Genitourinary/Gynecological Hx Genitourinary Disorders: Yes (c/s x2, removal of left fallopian tube for ectopic pregnacy) Hx Urinary Tract Infection: Yes Other/Comment: ovarian cyst - Psychiatric Hx Psychophysiologic Disorder: Yes Hx Anxiety: Yes Hx Substance Use: No - Past Surgical History Past Surgical History: No Previous - Surgical History Other/Comment: Port in L chest, toe fracture - Anesthesia Hx Anesthesia: Yes Hx Anesthesia Reactions: No Hx Malignant Hyperthermia: No - Suicidal Assessment Feels Threatened In Home Enviroment: No Family/Social History Family/Social History: Other (nc) Smoking Status: Never Smoked Hx Alcohol Use: Yes Hx Substance Use: No Hx Substance Use Treatment: No Allergies/Home Meds Allergies/Adverse Reactions: Allergies acetaminophen [From Percocet] Allergy (Verified 03/06/17 15:23) RASH ketorolac tromethamine [From Toradol] Allergy (Verified 03/06/17 15:20) ITCHING morphine Allergy (Verified 03/06/17 15:20) RASH oxycodone [From Percocet] Allergy (Verified 03/06/17 15:23) RASH Penicillins Allergy (Verified 03/06/17 15:20) RASH tramadol Allergy (Verified 03/06/17 15:20) DIZZINESS Home Medications: Home Meds Medication Instructions Recorded Confirmed Albuterol HFA [Ventolin HFA 90 2 puff IH [id number] PRN 12/22/16 03/06/17 mcg/actuation (8 g)] Folic Acid 1 mg PO DAILY 12/22/16 03/06/17 HYDROmorphone [Dilaudid] 4 mg PO PRN PRN 12/22/16 03/06/17 Metoprolol Tartrate 25 mg PO BID 12/22/16 03/06/17 Propylthiouracil 100 mg PO TID 12/22/16 03/06/17 Review of Systems - Physician Review All systems were reviewed & negative as marked: Yes - Review of Systems Constitutional: absent: Fevers Eyes: absent: Vision Changes Respiratory: Cough (chronic), Sputum (chronic). absent: SOB Cardiovascular: Chest Pain Gastrointestinal: Diarrhea (x3 since yesterday, loose non-watery). absent: Abdominal Pain, Nausea, Vomiting Genitourinary Female: absent: Dysuria Musculoskeletal: Other (body pain) Neurological: absent: Headache, Focal Weakness Physical Exam Vital Signs Reviewed: Yes Vital Signs Temp Pulse Resp BP Pulse Ox 03/06/17 20:14 110 H 17 104/59 L 99 03/06/17 18:25 105 H 18 117/80 98 03/06/17 16:14 99.0 F 03/06/17 15:11 99.4 F 117 H 18 115/58 L 98 Appearance: Positive for: Well-Appearing, Non-Toxic, Comfortable Pain Distress: None Mental Status: Positive for: Alert and Oriented X 3 - Systems Exam Head: Present: Atraumatic Pupils: Present: PERRL Extroacular Muscles: Present: EOMI Conjunctiva: Present: Normal Mouth: Present: Moist Mucous Membranes Neck: Present: Normal Range of Motion Respiratory/Chest: Present: Clear to Auscultation, Other (port in left chest wall- no redness, no warmth, no swelling, no drainage, some ttp.). No: Respiratory Distress, Accessory Muscle Use, Wheezes, Rales, Retracting, Rhonchi Cardiovascular: Present: Tachycardic Abdomen: No: Tenderness, Distention, Peritoneal Signs Upper Extremity: Present: NORMAL PULSES Lower Extremity: No: Edema Neurological: Present: GCS=15, CN II-XII Intact, Motor Func Grossly Intact, Normal Sensory Function, Other (no focal deficits) Skin: Present: Warm, Dry Psychiatric: Present: Alert, Oriented x 3 Medical Decision Making ED Course and Treatment: ecg- sinus tach 111, nonspec t wave abn, no sig change from prior the pt initially refused the po 16mg dilaudid, however when I spoke with her she agreed to take it - Lab Interpretations Microbiology Results: Microbiology Results 03/06/17 16:30 Blood-Venous Blood Culture - Preliminary NO GROWTH AFTER 24 HOURS 03/06/17 16:05 Urine Urine Culture - Final 10-50,000 CFU/ML. MULTIPLE SPECIES. PROBABLE CONTAMINATION. 03/06/17 16:00 Blood-Venous Gram Stain - Final Lab Results: 03/06/17 16:30 03/06/17 16:30 Lab Results 03/06/17 16:30: TSH 3rd Generation < 0.02 L 03/06/17 16:30: NT-Pro-B Natriuret Pep 61.9 03/06/17 16:30: Procalcitonin 0.06 L 03/06/17 16:30: Sodium 137, Chloride 106, Potassium 3.6, Carbon Dioxide 20 L, Anion Gap 15, BUN 5 L, Creatinine 0.5, Est GFR ( Amer) > 60, Est GFR (Non -Af Amer) > 60, Random Glucose 79, Calcium 10.0, Total Bilirubin 1.9 H, AST 72 H , ALT 74 H, Alkaline Phosphatase 123, Troponin I < 0.01, Total Protein 7.0, Albumin 4.1, Globulin 2.9, Albumin/Globulin Ratio 1.4 03/06/17 16:30: pO2 53, VBG pH 7.43, VBG pCO2 33.0 L, VBG HCO3 21.9, VBG Total CO2 22.9, VBG O2 Sat (Calc) 90.2 H, VBG Base Excess -1.9 L, VBG Potassium 3.8, Sodium 138.0, Chloride 108.0 H, Glucose 83, Lactate 0.9, FiO2 21.0, Venous Blood Potassium 3.8 08/11/17 16:30: WBC 14.9 H D, RBC 3.06 L, Hgb 9.5 L, Hct 26.2 L, MCV 85.6, MCH 31.0, MCHC 36.3, RDW 15.8 H, Plt Count 356, MPV 8.8, Gran % 61.2, Lymph % (Auto ) 26.2, [place] % (Auto) 10.2 H, Eos % (Auto) 2.1, Baso % (Auto) 0.3, Gran # 9.13 H , Lymph # 3.9 H, [place] # 1.5 H, Eos # 0.3, Baso # 0.04, Neutrophils % (Manual) 65 , Lymphocytes % (Manual) 31, Monocytes % (Manual) 3, Platelet Evaluation Normal , Polychromasia Slight, Hypochromasia Slight, Anisocytosis (manual) Slight, Sickle Cells Slight, Target Cells Slight, Ovalocytes Slight, [place] Cells Slight, Retic Count 12.23 H* 03/06/17 16:05: Urine Color Yellow, Urine Appearance Sl cloudy, Urine pH 6.0, Ur Specific [place] 1.015, Urine Protein Trace H, Urine Glucose (UA) Negative, Urine Ketones Negative, Urine Blood Trace-lysed H, Urine Nitrate Negative, Urine Bilirubin Negative, Urine Urobilinogen 0.2, Ur Leukocyte Esterase Negative , Urine RBC 1 - 3, Urine WBC 2 - 5, Ur Epithelial Cells Tntc, Urine Bacteria Mod - RAD Interpretation Radiology Orders: 03/06/17 17:49 CHEST PORTABLE [RAD] Stat - Medication Orders Current Medication Orders: Albuterol/Ipratropium (Duoneb 3 Mg/0.5 Mg (3 Ml) Ud) 3 ml IH Q2H PRN PRN Reason: Shortness of Breath Folic Acid (Folic Acid) 1 mg PO DAILY [facility] Last Admin: 03/07/17 09:15 Dose: 1 mg Hydromorphone HCl (Dilaudid) 1 mg IVP Q4H PRN PRN Reason: Pain, severe (8-10) Last Admin: 03/08/17 04:01 Dose: 1 mg Re-Assess: CASSIA Pain Assessment Document 03/08/17 05:01 BN (Rec: 03/08/17 05:39 BN [id number]) Pain Reassessment Is this a pain reassessment? Yes Presence of Pain Presence of Pain Yes Pain Scale Used Pain Scale Used Numeric Description Description Constant Intensity of Pain at present 7 Pain Behavior Irritability Restlessness Alleviating Factors/Management Medication Techniques Alleviating Factors Medication Pantoprazole Sodium (Protonix 40mg Ivpb) 40 mg in 100 mls @ 200 mls/hr IVPB 0600 [facility] Last Admin: 03/08/17 05:24 Dose: Not Given Non-Admin Reason: Patient Refused Sodium Chloride (Sodium Chloride 0.9%) 1,000 mls @ 150 mls/hr IV .Q6H40M [facility] Last Admin: 03/08/17 03:09 Dose: Metoprolol Tartrate (Lopressor) 25 mg PO BID [facility] Last Admin: 03/07/17 17:12 Dose: Not Given Non-Admin Reason: Patient Refused Propylthiouracil (Propylthiouracil) 100 mg PO TID [facility] Last Admin: 03/07/17 17:14 Dose: 100 mg Discontinued Medications Diphenhydramine HCl (Benadryl) 50 mg PO STAT STA Stop: 03/06/17 18:35 Last Admin: 03/06/17 19:02 Dose: 50 mg Hydromorphone HCl (Dilaudid) 16 mg PO ONCE STA Stop: 03/06/17 15:37 Last Admin: 03/06/17 17:30 Dose: 16 mg Hydromorphone HCl (Dilaudid) 1 mg IVP STAT STA Stop: 03/06/17 18:16 Last Admin: 03/06/17 18:30 Dose: 1 mg Hydromorphone HCl (Dilaudid) 1 mg IVP STAT STA Stop: 03/06/17 22:47 Last Admin: 03/06/17 22:54 Dose: 1 mg Re-Assess: [facility] Pain Assessment Document 03/06/17 23:54 MJ (Rec: 03/07/17 00:36 MJ [email or web address]) Pain Reassessment Is this a pain reassessment? Yes Sleep Is patient sleeping during reassessment? Yes Hydromorphone HCl (Dilaudid) 1 mg IVP STAT STA Stop: 03/07/17 03:23 Last Admin: 03/07/17 03:35 Dose: 1 mg Re-Assess: [facility] Pain Assessment Document 03/07/17 04:35 MJ (Rec: 03/07/17 05:12 MJ [id number]) Pain Reassessment Is this a pain reassessment? No Sleep Is patient sleeping during reassessment? No Presence of Pain Presence of Pain No Description Description Constant Pain Behavior Moaning Alleviating Factors/Management Medication Techniques Alleviating Factors Medication Hydromorphone HCl (Dilaudid) 1 mg IVP STAT STA Stop: 03/07/17 05:57 Last Admin: 03/07/17 06:04 Dose: 1 mg Hydromorphone HCl (Dilaudid) 1 mg IVP ONCE ONE Stop: 03/07/17 11:38 Last Admin: 03/07/17 11:56 Dose: 1 mg Sodium Chloride (Sodium Chloride 0.9%) 1,000 mls @ 100 mls/hr IV .Q10H [facility] Pneumococcal Polyvalent Vaccine (Pneumovax 23 Vaccine) 0.5 ml IM .ONCE ONE Stop: 03/06/17 22:49 Disposition/Present on Arrival - Present on Arrival Any Indicators Present on Arrival: No History of DVT/PE: No History of Uncontrolled Diabetes: No Urinary Catheter: No History of Decub. Ulcer: No History Surgical Site Infection Following: None - Disposition Have Diagnosis and Disposition been Completed?: Yes Diagnosis: Sickle cell pain crisis Disposition: HOSPITALIZED Disposition Time: 18:52 Condition: STABLE
[2017-03-06 16:20] LABS: URINE BILIRUBIN NEGATIVE (NEGATIVE); URINE BLOOD TRACE-LYSED (NEGATIVE); URINE GLUCOSE (UA) NEGATIVE (NEGATIVE); URINE LEUKOCYTE ESTERASE NEGATIVE Leu/uL (NEGATIVE); URINE NITRATE NEGATIVE (NEGATIVE); URINE PROTEIN TRACE mg/dL (<30 mg/dL); URINE UROBILINOGEN 0.2 E.U./dL (<1 E.U./dL)
[2017-03-06 16:28] LABS: URINE APPEARANCE SL CLOUDY (CLEAR); URINE COLOR YELLOW (YELLOW)
[2017-03-06 16:38] LABS: URINE BACTERIA MOD (NEG); URINE EPITHELIAL CELLS TNTC /hpf (0-5)
[2017-03-06 16:46] LABS: BASO # 0.04 K/mm3 (0.0-2.0); BASO % 0.3 % (0.0-3.0); EOS # 0.3 (0.0-0.7); EOS % 2.1 % (1.5-5.0); GRAN # 9.13 (1.4-6.5); GRAN % 61.2 % (50.0-68.0); HEMOGLOBIN 9.5 g/dL (12.0-16.0); LYMPH # 3.9 (1.2-3.4); LYMPH % 26.2 % (22.0-35.0); MEAN CELL VOLUME 85.6 fl (80.0-105.0); MEAN CORPUSCULAR HGB CONC 36.3 g/dl (31.0-37.0); MEAN PLATELET VOLUME 8.8 fl (7.0-11.0); MONO # 1.5 (0.1-0.6); MONO % 10.2 % (1.0-6.0); PLATELET COUNT 356 10^3/uL (120.0-450.0); RBC 3.06 10^6/uL (3.5-6.1); RED CELL DISTRIBUTION WIDTH 15.8 % (11.5-14.5); WHITE BLOOD COUNT 14.9 10^3/ul (4.5-11.0)
[2017-03-06 16:48] LABS: VENOUS BLOOD GAS BASE EXCESS -1.9 mmol/L (0.0-2.0); VENOUS BLOOD GAS PO2 53 mm/Hg (30-55); VENOUS BLOOD PH 7.43 (7.32-7.43)
[2017-03-06 17:03] LABS: ALB/GLOB RATIO 1.4 (1.1-1.8); ALBUMIN 4.1 g/dL (3.0-4.8); ALT/SGPT 74 U/L (7-56); AST/SGOT 72 U/L (15-39); BLOOD UREA NITROGEN 5 mg/dL (7-21); GFR AFRICAN-AMERICAN > 60; GFR NON-AFRICAN AMERICAN > 60
[2017-03-06 17:26] LABS: TROPONIN I < 0.01 ng/mL
[2017-03-06] MEDS ORDERED: HYDROmorphone 1 mg/ml ISec IVP STA ×2 (18:15→22:46)
[2017-03-06 18:39] LABS: ANISOCYTOSIS SLIGHT; HYPOCHROMIA SLIGHT; LYMPHOCYTE 31 % (22.0-35.0); MONOCYTE 3 % (1.0-6.0); NEUTROPHIL 65 % (50.0-70.0); PLATELET ESTIMATE NORMAL (NORMAL); POLYCHROMASIA SLIGHT
[2017-03-06 18:40] LABS: BURR CELLS SLIGHT; OVALOCYTES SLIGHT; TARGET CELLS SLIGHT
[2017-03-06 18:44] LABS: SICKLE CELLS SLIGHT
--- NOTE | 2017-03-06 18:59 | RAD ---
HISTORY: Chest pain. COMPARISON: 03/03/2017 FINDINGS: LUNGS: Stable lower lobe infiltrates. PLEURA: Stable small bilateral pleural effusions. CARDIOVASCULAR: No radiographic findings to suggest acute or significant cardiovascular disease. Venous access catheter in stable, satisfactory position. OSSEOUS STRUCTURES: No significant abnormalities. VISUALIZED UPPER ABDOMEN: Normal. OTHER FINDINGS: None. IMPRESSION: No significant interval change compared to the prior examination(s).
[2017-03-06] MEDS ORDERED: Sodium Chloride 0.9% 1,000 ML IV SCH (20:30)
--- NOTE | 2017-03-06 20:37 | CP.PCM.HP ---
History of Present Illness - History of Present Illness History of Present Illness: CC: Neck Pain HPI: Ms. Rivera is a 31 year old AA female with a past medical history of Sickle Cell Anemia (SS), avascular necrosis, chronic bronchitis, hyperthyroidism, HTN who presented with pain associated with her port for the last several days since she left [place] [facility]. She rates this pain as a 10/10 and reports no aggravating or alleviating factors. She states that she often has "sickle cell pain" and that this pain is somewhat consistent with that pain. She also endorses that she has a chronic productive cough from her chronic bronchitis. At her last visit, she endorsed that she was aware that she is 13 weeks and that she is still keeping her appointment for termination of this on 03/09 and does not wish to withhold any treatment in light of her being . A chest x-ray done in the ED showed that her venous catheter was in stable and satisfactory position. An EKG done in the ED showed sinus tachycardia with no significant changes from her prior study. Patient denies headache, LOC, fever, weight loss, changes in her vision, shortness of breath, abdominal pain, N/V, diarrhea, constipation or any numbness/tingling/ weakness of any extremities. PMH: sickle cell (SS), avascular necrosis, chronic bronchitis, hyperthyroidism, HTN PSH: , port-cath placement, D&C Family: Brother-Sickle cell, Mother-RCC, Father-DM Social: smokes 1 cigarette/day, drink 2 cups of alcohol per week, denies illicit drug use Allergies: ketorolac, morphine, penicillins, tramadol Home Meds: As per MAR Present on Admission - Present on Admission Any Indicators Present on Admission: No Review of Systems - Review of Systems Review of Systems: Please refer to HPI Past Patient History - Infectious Disease Hx of Infectious Diseases: None - Tetanus Immunizations Tetanus Immunization: Up to Date - Past Medical History & Family History Past Medical History?: Yes - Past Social History Smoking Status: Never Smoked - CARDIAC Hx Cardiac Disorders: Yes Hx Hypertension: Yes - PULMONARY Hx Respiratory Disorders: No - NEUROLOGICAL Hx Neurological Disorder: No - HEENT Hx HEENT Problems: No - RENAL Hx Chronic Kidney Disease: No - ENDOCRINE/METABOLIC Hx Endocrine Disorders: Yes Hx Hypothyroidism: Yes - HEMATOLOGICAL/ONCOLOGICAL Hx Blood Disorders: Yes Hx Sickle Cell Disease: Yes - INTEGUMENTARY Hx Dermatological Problems: No - MUSCULOSKELETAL/RHEUMATOLOGICAL Hx Falls: Yes - GASTROINTESTINAL Hx Gastrointestinal Disorders: No - GENITOURINARY/GYNECOLOGICAL Hx Genitourinary Disorders: Yes (c/s x2, removal of left fallopian tube for ectopic pregnacy) Hx Urinary Tract Infection: Yes Other/Comment: ovarian cyst - PSYCHIATRIC Hx Psychophysiologic Disorder: Yes Hx Anxiety: Yes Hx Substance Use: No - SURGICAL HISTORY Other/Comment: Port in L chest, toe fracture - ANESTHESIA Hx Anesthesia: Yes Hx Anesthesia Reactions: No Hx Malignant Hyperthermia: No Meds Allergies/Adverse Reactions: Allergies Allergy/AdvReac Type Severity Reaction Status Date / Time acetaminophen [From Percocet] Allergy RASH Verified 03/06/17 15:23 ketorolac tromethamine Allergy ITCHING Verified 03/06/17 15:20 [From Toradol] morphine Allergy RASH Verified 03/06/17 15:20 oxycodone [From Percocet] Allergy RASH Verified 03/06/17 15:23 Penicillins Allergy RASH Verified 03/06/17 15:20 tramadol Allergy DIZZINESS Verified 03/06/17 15:20 Physical Exam - Constitutional Appears: No Acute Distress - Head Exam Head Exam: ATRAUMATIC, NORMAL INSPECTION, NORMOCEPHALIC - Eye Exam Eye Exam: EOMI, Normal appearance. absent: Conjunctival injection, Periorbital swelling, Periorbital tenderness Pupil Exam: NORMAL ACCOMODATION, PERRL - ENT Exam ENT Exam: Mucous Membranes Moist, Normal Exam - Neck Exam Neck exam: Positive for: Full Rom. Negative for: Lymphadenopathy - Respiratory Exam Respiratory Exam: Chest Wall Tenderness, Clear to Auscultation Bilateral, NORMAL BREATHING PATTERN. absent: Rales, Rhonchi, Wheezes, Respiratory Distress Additional comments: port in L chest wall- no redness, no warmth, no swelling, no drainage, some ttp - Cardiovascular Exam Cardiovascular Exam: Tachycardia, REGULAR RHYTHM, +S1, +S2. absent: RRR - GI/Abdominal Exam GI & Abdominal Exam: Normal Bowel Sounds, Soft. absent: Distended, Firm, Guarding, Tenderness - Exam Exam: absent: Bladder Distension - Extremities Exam Extremities exam: Positive for: normal capillary refill, normal inspection, pedal pulses present. Negative for: calf tenderness, pedal edema - Back Exam Back exam: absent: CVA tenderness (L), CVA tenderness (R) - Neurological Exam Neurological exam: Alert, Oriented x3 - Psychiatric Exam Psychiatric exam: Normal Affect, Normal Mood - Skin Skin Exam: Dry, Intact, Normal Color, Warm Results - Vital Signs Recent Vital Signs: Last Vital Signs Temp 99.0 F 03/06/17 16:14 Pulse 110 H 03/06/17 20:14 Resp 17 03/06/17 20:14 BP 104/59 L 03/06/17 20:14 Pulse Ox 99 03/06/17 20:14 - Labs Result Diagrams: 03/06/17 16:30 03/06/17 16:30 Assessment & Plan - Assessment and Plan (Free Text) Assessment: Patient is 31 year old AA female with a past medical history of Sickle Cell Anemia (SS), avascular necrosis, chronic bronchitis, hyperthyroidism, HTN who presented with pain associated with her port for the last several days since she left AMA from [facility] on 03/04 Plan: 1. Chest Wall Pain -likely secondary to port infection -vancomycin 250mg qd -dilaudid 1mg q4h for pain control -procal, BNP, TSH, blood and urine cx's pending -IVF: NS at 150 -hem/onc and ID consulted and following appreciate recs 2. GI/DVT ppx - SCDS, protonix - Date & Time Date: 03/06/17 Time: 20:30
[2017-03-06] MEDS: HYDROmorphone 1 mg/ml ISec IVP PRN (21:11)
[2017-03-06] MEDS ORDERED: Albuterol-Ipratrop 3 mg / 0.5 (3 ml) UD IH PRN (22:12)
[2017-03-06 22:48] VITALS: BMI 26.9
[2017-03-06] MEDS ORDERED: Pneumococcal 23-Valent Vaccine IM ONE (22:48)
--- NOTE | 2017-03-06 23:19 | CARD ---
APPROVED REPORT EKG Measurement Heart [id number] <Conclusion> Sinus tachycardia T wave abnormality, consider lateral ischemia Abnormal ECG
[2017-03-07] MEDS: HYDROmorphone 1 mg/ml ISec IVP PRN ×6 (01:09→21:00)
[2017-03-07] MEDS ORDERED: HYDROmorphone 1 mg/ml ISec IVP STA ×2 (03:22→05:56)
[2017-03-07] MEDS: Pantoprazole 40mg/100ml IVPB 40 MG/100 ML BAG IVPB SCH (06:05)
[2017-03-07 07:58] VITALS: O2SAT 98
[2017-03-07] MEDS ORDERED: Vancomycin 1gm in NS 250ml 1 GM/250 ML BAG IVPB SCH (10:00)
[2017-03-07] MEDS ORDERED: HYDROmorphone 1 mg/ml ISec IVP ONE (11:37)
--- NOTE | 2017-03-07 11:37 | CP.PCM.PN ---
<Soo Puri - Last Filed: 03/07/17 17:23> Subjective - Date & Time of Evaluation Date of Evaluation: 03/07/17 Time of Evaluation: 11:36 - Subjective Subjective: PT S&E at bedside.ITAEON. Patient states that she cannot tolerate the pain. Patient was in a bad mood this morning was unhappy. Port site was visualized. Patient states she has neck and shoulder pain radiating on the left side. Pain is located at her port site. Patient states cannot tolerate the pain. She is aware that she is four months and does not want to give a urine test for beta HCG. Patient was positive for on her previous visit. Per Nursing, Patient is reported to have changed IV rate from 150 cc to 20 cc to have less fluid intake. Patient gets easily agitated. Patient admits to subjective fever and chills. Patient denies Nausea, vomiting, constipation, and diarrhea. Objective - Vital Signs/Intake and Output Vital Signs (last 24 hours): Temp Pulse Resp BP Pulse Ox 98.5 F 98 H 18 104/63 98 03/07/17 07:58 03/07/17 07:58 03/07/17 07:58 03/07/17 07:58 03/07/17 07:58 Intake and Output: 03/07/17 03/07/17 06:59 18:59 Intake Total 360 Balance 360 - Medications Medications: Current Medications Albuterol/Ipratropium (Duoneb 3 Mg/0.5 Mg (3 Ml) Ud) 3 ml IH Q2H PRN PRN Reason: Shortness of Breath Folic Acid (Folic Acid) 1 mg PO DAILY [facility] Last Admin: 03/07/17 09:15 Dose: 1 mg Hydromorphone HCl (Dilaudid) 1 mg IVP Q4H PRN PRN Reason: Pain, severe (8-10) Last Admin: 03/07/17 09:06 Dose: 1 mg Pantoprazole Sodium (Protonix 40mg Ivpb) 40 mg in 100 mls @ 200 mls/hr IVPB 0600 [facility] Last Admin: 03/07/17 06:05 Dose: 200 mls/hr Sodium Chloride (Sodium Chloride 0.9%) 1,000 mls @ 150 mls/hr IV .Q6H40M [facility] Metoprolol Tartrate (Lopressor) 25 mg PO BID [facility] Last Admin: 03/07/17 09:15 Dose: Not Given Propylthiouracil (Propylthiouracil) 100 mg PO TID [facility] Last Admin: 03/07/17 09:15 Dose: 100 mg - Constitutional Appears: Non-toxic - Head Exam Head Exam: NORMAL INSPECTION - Eye Exam Eye Exam: EOMI, Normal appearance - ENT Exam ENT Exam: Mucous Membranes Moist - Neck Exam Neck Exam: Full ROM - Respiratory Exam Respiratory Exam: Clear to Ausculation Bilateral, NORMAL BREATHING PATTERN. absent: Accessory Muscle Use, Respiratory Distress - Cardiovascular Exam Cardiovascular Exam: REGULAR RHYTHM - GI/Abdominal Exam GI & Abdominal Exam: Distended, Firm. absent: Tenderness, Pulsatile Mass, Rebound Additional comments: Patient is 4 months - Extremities Exam Extremities Exam: Full ROM, Normal Inspection. absent: Joint Swelling, Pedal Edema Additional comments: left foot pain. Patient states she has a broken 5th toe. - Neurological Exam Neurological Exam: Alert, Awake, Normal Gait - Psychiatric Exam Psychiatric exam: Agitated, Flat Affect - Skin Skin Exam: Dry, Intact, Normal Color, Warm Assessment and Plan - Assessment and Plan (Free Text) Assessment: 31 F with PMH of sickle cell, avascular necrosis, chronic bronchitis, hyperthyroidism, and HTN. Plan: Possible Port infection Blood cx: Positive for Bacillus NS 150cc/hr ID consulted: Boghossian f/u CBC f/u Vitals Left Broken 5th toe in vanessa wrap: consider consulting Ortho/Podiatry Pain management: consider ethics committee evaluation of patient taking dilaudid when Dilaudid 1mg IVP STAT Sickle cell: Dr. Kingston Chronic bronchitis: Duoneb : 4 month gestation Folic acid HTN: Metoprolol Titrate 25 mgPOBID Hyperthyroidism: PTU 100mg POTID Reg diet DVT PPX: SCD GI PPX: Protonix <Raheel Rodriguez - Last Filed: 03/07/17 18:45> Objective - Vital Signs/Intake and Output Vital Signs (last 24 hours): Temp Pulse Resp BP Pulse Ox 98.5 F 119 H 18 108/69 98 03/07/17 07:58 03/07/17 17:12 03/07/17 07:58 03/07/17 17:12 03/07/17 07:58 Intake and Output: 03/07/17 03/07/17 06:59 18:59 Intake Total 360 580 Balance 360 580 - Medications Medications: Current Medications Albuterol/Ipratropium (Duoneb 3 Mg/0.5 Mg (3 Ml) Ud) 3 ml IH Q2H PRN PRN Reason: Shortness of Breath Folic Acid (Folic Acid) 1 mg PO DAILY [facility] Last Admin: 03/07/17 09:15 Dose: 1 mg Hydromorphone HCl (Dilaudid) 1 mg IVP Q4H PRN PRN Reason: Pain, severe (8-10) Last Admin: 03/07/17 17:11 Dose: 1 mg Pantoprazole Sodium (Protonix 40mg Ivpb) 40 mg in 100 mls @ 200 mls/hr IVPB 0600 [facility] Last Admin: 03/07/17 06:05 Dose: 200 mls/hr Sodium Chloride (Sodium Chloride 0.9%) 1,000 mls @ 150 mls/hr IV .Q6H40M [facility] Last Admin: 03/07/17 17:11 Dose: Not Given Metoprolol Tartrate (Lopressor) 25 mg PO BID [facility] Last Admin: 03/07/17 17:12 Dose: Not Given Propylthiouracil (Propylthiouracil) 100 mg PO TID [facility] Last Admin: 03/07/17 17:14 Dose: 100 mg - Labs Labs: 03/07/17 12:10 Attending/Attestation - Attestation I have personally seen and examined this patient.: Yes I have fully participated in the care of the patient.: Yes I have reviewed all pertinent clinical information, including history, physical exam and plan: Yes Notes (Text): 03/07/17 18:41 Patient seen and examined at bedside. vitals, recent notes, labs and orders reviewed. Complaints of generalized bodyache and left scapular pain , around the port site. Afebrile. Convinced the patient to allow blood draws for treatment measures. She announced her plans for medical termination of on 03/09 in [place] and doesn't want any treatment held in lieu of defect concerns. She admits to be in her 1st trimester, recent H&P reviewed for confirmation. Leukocytosis secondary to her SCD and H/H stable with elevated ret.count. ID consult appreciated, follow the USG of the port. Agree with the remainder of the plan as outlined by the resident including titrating her analgesic medications, continue IV fluids and DCP in24 hours..
[2017-03-07 12:26] LABS: BASO # 0.02 K/mm3 (0.0-2.0); BASO % 0.2 % (0.0-3.0); EOS # 0.3 (0.0-0.7); EOS % 2.5 % (1.5-5.0); GRAN # 7.79 (1.4-6.5); GRAN % 66.6 % (50.0-68.0); HEMOGLOBIN 8.8 g/dL (12.0-16.0); LYMPH # 2.3 (1.2-3.4); LYMPH % 19.8 % (22.0-35.0); MEAN CORPUSCULAR HEMOGLOBIN 30.7 pg (25.0-35.0); MEAN CORPUSCULAR HGB CONC 36.1 g/dl (31.0-37.0); MEAN PLATELET VOLUME 8.5 fl (7.0-11.0); MONO # 1.3 (0.1-0.6); MONO % 10.9 % (1.0-6.0); PLATELET COUNT 375 10^3/uL (120.0-450.0); RBC 2.87 10^6/uL (3.5-6.1); RED CELL DISTRIBUTION WIDTH 15.5 % (11.5-14.5); WHITE BLOOD COUNT 11.7 10^3/ul (4.5-11.0)
[2017-03-07] MEDS: Sodium Chloride 0.9% 1,000 ML IV SCH (17:11)
--- NOTE | 2017-03-07 18:05 | CP.PCM.CON ---
History of Present Illness - History of Present Illness History of Present Illness: 31 year old female with PMH of sickle cell anemia, S/P port-a-cath placement 3 years ago, Caesarian section 2 times, ectopic , chronic bronchitis, hyperthyroidism, HTN came in to [facility] because of pain all over her body. She states she also has pain in the port area and blood could not be drawn from the port. She denies headache or dizziness, no chest pain, no nausea or vomiting, no SOB, had chronic cough, no abdominal pain, no diarrhea, no dysuria. She states that she is 13 weeks and she plans to get an . She was also found to have leukocytosis. Infectious Diseases consult is requested to further evaluate and manage. Review of Systems - Review of Systems All systems: reviewed and no additional remarkable complaints except (as per hPI ) Past Patient History - Infectious Disease Hx of Infectious Diseases: None - Tetanus Immunizations Tetanus Immunization: Up to Date - Past Medical History & Family History Past Medical History?: Yes - Past Social History Smoking Status: Never Smoked - CARDIAC Hx Cardiac Disorders: Yes Hx Hypertension: Yes - PULMONARY Hx Respiratory Disorders: No - NEUROLOGICAL Hx Neurological Disorder: No - HEENT Hx HEENT Problems: No - RENAL Hx Chronic Kidney Disease: No - ENDOCRINE/METABOLIC Hx Endocrine Disorders: Yes Hx Hypothyroidism: Yes - HEMATOLOGICAL/ONCOLOGICAL Hx Blood Disorders: Yes Hx Sickle Cell Disease: Yes - INTEGUMENTARY Hx Dermatological Problems: No - MUSCULOSKELETAL/RHEUMATOLOGICAL Hx Falls: Yes - GASTROINTESTINAL Hx Gastrointestinal Disorders: No - GENITOURINARY/GYNECOLOGICAL Hx Genitourinary Disorders: Yes (c/s x2, removal of left fallopian tube for ectopic pregnacy) Hx Urinary Tract Infection: Yes Other/Comment: ovarian cyst - PSYCHIATRIC Hx Psychophysiologic Disorder: Yes Hx Anxiety: Yes Hx Substance Use: No - SURGICAL HISTORY Other/Comment: Port in L chest, toe fracture - ANESTHESIA Hx Anesthesia: Yes Hx Anesthesia Reactions: No Hx Malignant Hyperthermia: No Meds Allergies/Adverse Reactions: Allergies Allergy/AdvReac Type Severity Reaction Status Date / Time acetaminophen [From Percocet] Allergy RASH Verified 03/06/17 15:23 ketorolac tromethamine Allergy ITCHING Verified 03/06/17 15:20 [From Toradol] morphine Allergy RASH Verified 03/06/17 15:20 oxycodone [From Percocet] Allergy RASH Verified 03/06/17 15:23 Penicillins Allergy RASH Verified 03/06/17 15:20 tramadol Allergy DIZZINESS Verified 03/06/17 15:20 - Medications Medications: Current Medications Hydromorphone HCl (Dilaudid) 1 mg IVP Q4H PRN PRN Reason: Pain, severe (8-10) Last Admin: 03/06/17 21:11 Dose: 1 mg Pantoprazole Sodium (Protonix 40mg Ivpb) 40 mg in 100 mls @ 200 mls/hr IVPB 0600 [facility] Sodium Chloride (Sodium Chloride 0.9%) 1,000 mls @ 150 mls/hr IV .Q6H40M [facility] Physical Exam - Constitutional Appears: Non-toxic, No Acute Distress - Head Exam Head Exam: NORMAL INSPECTION - ENT Exam ENT Exam: Mucous Membranes Moist - Neck Exam Neck exam: Negative for: Lymphadenopathy, Meningismus - Respiratory Exam Respiratory Exam: Decreased Breath Sounds Additional comments: right anterior chest wall port site intact, non-tender to palpation, no surrounding erythema - Cardiovascular Exam Cardiovascular Exam: +S1, +S2 - GI/Abdominal Exam GI & Abdominal Exam: Soft. absent: Tenderness Results - Vital Signs Recent Vital Signs: Last Vital Signs Temp 99.0 F 03/06/17 16:14 Pulse 110 H 03/06/17 20:14 Resp 17 03/06/17 20:14 BP 104/59 L 03/06/17 20:14 Pulse Ox 99 03/06/17 20:14 - Labs Result Diagrams: 03/07/17 12:10 03/06/17 16:30 Assessment & Plan - Assessment and Plan (Free Text) Plan: Assessment leukocytosis probably due to reticulcytosis (falsely counted by machine as WBC's ) gram positive bacilli in 1 bottle of blood cx, R/O contamination 13 weeks AOG of R/O port-a-cath thrombosis sickle cell anemia S/P port-a-cath placement 3 years ago Caesarian section 2 times ectopic chronic bronchitis hyperthyroidism HTN Plan follow up repeat blood cx; will monitor off antibiotics and follow up repeat WBC count check ultrasound of the port to rule out thrombosis will monitor clinically
[2017-03-07] MEDS ORDERED: Oxycodone/Acetaminophen 5/325 mg Tab PO PRN (18:47)
[2017-03-08] MEDS: Sodium Chloride 0.9% 1,000 ML IV SCH (03:09)
[2017-03-08] MEDS: HYDROmorphone 1 mg/ml ISec IVP PRN ×2 (04:01→09:56)
--- NOTE | 2017-03-08 04:31 | CP.PCM.PN ---
Subjective - Date & Time of Evaluation Date of Evaluation: 03/08/17 Time of Evaluation: 04:13 - Subjective Subjective: S:Patient was seen because it was requested to insert a new heparin lock. She has no complaints. Pertinent medical record was reviewed. O: Last Vital Signs 3 Temp 98.5 F 03/07/17 07:58 Pulse 119 H 03/07/17 17:12 Resp 18 03/07/17 07:58 BP 108/69 03/07/17 17:12 Pulse Ox 98 03/07/17 07:58 Awake, alert, not in distress. LUNGS:Normal breathing pattern. A:Encounter for intravenous line placement. Poor Venous Access. P: # 24 angiocath was inserted in distal right forearm. Objective - Vital Signs/Intake and Output Vital Signs (last 24 hours): Temp Pulse Resp BP Pulse Ox 98.5 F 119 H 18 108/69 98 03/07/17 07:58 03/07/17 17:12 03/07/17 07:58 03/07/17 17:12 03/07/17 07:58 Intake and Output: 03/07/17 03/08/17 18:59 06:59 Intake Total 580 540 Balance 580 540 - Medications Medications: Current Medications Albuterol/Ipratropium (Duoneb 3 Mg/0.5 Mg (3 Ml) Ud) 3 ml IH Q2H PRN PRN Reason: Shortness of Breath Folic Acid (Folic Acid) 1 mg PO DAILY [facility] Last Admin: 03/07/17 09:15 Dose: 1 mg Hydromorphone HCl (Dilaudid) 1 mg IVP Q4H PRN PRN Reason: Pain, severe (8-10) Last Admin: 03/08/17 04:01 Dose: 1 mg Pantoprazole Sodium (Protonix 40mg Ivpb) 40 mg in 100 mls @ 200 mls/hr IVPB 0600 [facility] Last Admin: 03/07/17 06:05 Dose: 200 mls/hr Sodium Chloride (Sodium Chloride 0.9%) 1,000 mls @ 150 mls/hr IV .Q6H40M [facility] Last Admin: 03/08/17 03:09 Dose: Not Given Metoprolol Tartrate (Lopressor) 25 mg PO BID [facility] Last Admin: 03/07/17 17:12 Dose: Not Given Propylthiouracil (Propylthiouracil) 100 mg PO TID [facility] Last Admin: 03/07/17 17:14 Dose: 100 mg - Labs Labs: 03/07/17 12:10
[2017-03-08] MEDS: Pantoprazole 40mg/100ml IVPB 40 MG/100 ML BAG IVPB SCH (05:24)
[2017-03-08 07:56] VITALS: BP 103/73; PULSE 91; RESP 20; TEMP 98.6
[2017-03-08 11:59] LABS: BASO # 0.02 K/mm3 (0.0-2.0); BASO % 0.2 % (0.0-3.0); EOS # 0.6 (0.0-0.7); EOS % 5.5 % (1.5-5.0); GRAN # 5.69 (1.4-6.5); GRAN % 57.2 % (50.0-68.0); HEMOGLOBIN 8.6 g/dL (12.0-16.0); LYMPH # 2.6 (1.2-3.4); LYMPH % 26.1 % (22.0-35.0); MEAN CELL VOLUME 84.8 fl (80.0-105.0); MEAN CORPUSCULAR HGB CONC 36.6 g/dl (31.0-37.0); MEAN PLATELET VOLUME 8.3 fl (7.0-11.0); MONO # 1.1 (0.1-0.6); PLATELET COUNT 356 10^3/uL (120.0-450.0); RBC 2.77 10^6/uL (3.5-6.1); RED CELL DISTRIBUTION WIDTH 15.6 % (11.5-14.5); WHITE BLOOD COUNT 9.9 10^3/ul (4.5-11.0)
[2017-03-08 12:15] LABS: ALB/GLOB RATIO 1.2 (1.1-1.8); ALBUMIN 3.7 g/dL (3.0-4.8); ALT/SGPT 76 U/L (7-56); AST/SGOT 86 U/L (15-39); BLOOD UREA NITROGEN 6 mg/dL (7-21); GFR AFRICAN-AMERICAN > 60; GFR NON-AFRICAN AMERICAN > 60
[2017-03-08] MEDS ORDERED: HYDROmorphone 0.5 mg/0.5 ml ISec IVP PRN (13:58)
--- NOTE | 2017-03-08 15:11 | CP.PCM.DIS ---
<JaxsonSoo - Last Filed: 03/08/17 15:15> Provider - Provider Date of Admission: 03/06/17 18:52 Attending physician: Susan Torrez MD Primary care physician: Arnold Pratt Required Consults: Consults Ortho - Dr. Canela ID - Dr. Sabrina Middleton/onc- Dr. Gong Time Spent in preparation of Discharge (in minutes): 30 Hospital Course - Lab Results Lab Results: Micro Results 03/07/17 13:33 Blood-Venous Blood Culture - Preliminary NO GROWTH AFTER 24 HOURS 03/07/17 13:28 Blood-Venous Blood Culture - Preliminary NO GROWTH AFTER 24 HOURS Most Recent Lab Values WBC 9.9 10^3/ul (4.5-11.0) 03/08/17 11:50 RBC 2.77 10^6/uL (3.5-6.1) L 03/08/17 11:50 Hgb 8.6 g/dL (12.0-16.0) L 03/08/17 11:50 Hct 24.5 % (36.0-48.0) L 03/08/17 11:50 MCV 84.8 fl (80.0-105.0) 03/08/17 11:50 MCH 31.0 pg (25.0-35.0) 03/08/17 11:50 MCHC 36.6 g/dl (31.0-37.0) 03/08/17 11:50 RDW 15.6 % (11.5-14.5) H 03/08/17 11:50 Plt Count 356 10^3/uL (120.0-450.0) 03/08/17 11:50 MPV 8.3 fl (7.0-11.0) 03/08/17 11:50 Gran % 57.2 % (50.0-68.0) 03/08/17 11:50 Lymph % (Auto) 26.1 % (22.0-35.0) 03/08/17 11:50 Lane % (Auto) 11.0 % (1.0-6.0) H 03/08/17 11:50 Eos % (Auto) 5.5 % (1.5-5.0) H 03/08/17 11:50 Baso % (Auto) 0.2 % (0.0-3.0) 03/08/17 11:50 Gran # 5.69 (1.4-6.5) 03/08/17 11:50 Lymph # 2.6 (1.2-3.4) 03/08/17 11:50 Lane # 1.1 (0.1-0.6) H 03/08/17 11:50 Eos # 0.6 (0.0-0.7) 03/08/17 11:50 Baso # 0.02 K/mm3 (0.0-2.0) 03/08/17 11:50 Neutrophils % (Manual) 65 % (50.0-70.0) 03/06/17 16:30 Lymphocytes % (Manual) 31 % (22.0-35.0) 03/06/17 16:30 Monocytes % (Manual) 3 % (1.0-6.0) 03/06/17 16:30 Platelet Evaluation Normal (NORMAL) 03/06/17 16:30 Polychromasia Slight 03/06/17 16:30 Hypochromasia Slight 03/06/17 16:30 Anisocytosis (manual) Slight 03/06/17 16:30 Sickle Cells Slight 03/06/17 16:30 Target Cells Slight 03/06/17 16:30 Ovalocytes Slight 03/06/17 16:30 Kincaid Cells Slight 03/06/17 16:30 Retic Count 12.23 % (0.5-1.5) H* 03/06/17 16:30 pO2 53 mm/Hg (30-55) 03/06/17 16:30 VBG pH 7.43 (7.32-7.43) 03/06/17 16:30 VBG pCO2 33.0 (40-60) L 03/06/17 16:30 VBG HCO3 21.9 mmol/l (21-28) 03/06/17 16:30 VBG Total CO2 22.9 mmol.L (22-28) 03/06/17 16:30 VBG O2 Sat (Calc) 90.2 % (40-65) H 03/06/17 16:30 VBG Base Excess -1.9 mmol/L (0.0-2.0) L 03/06/17 16:30 VBG Potassium 3.8 mmol/L (3.6-5.2) 03/06/17 16:30 Sodium 138.0 mmol/L (132-148) 03/06/17 16:30 Chloride 108.0 mmol/L (98-107) H 03/06/17 16:30 Glucose 83 mg/dl (65-105) 03/06/17 16:30 Lactate 0.9 mmol/L (0.7-2.1) 03/06/17 16:30 FiO2 21.0 % 03/06/17 16:30 Sodium 137 mmol/L (132-148) 03/08/17 11:50 Potassium 3.5 mmol/L (3.6-5.0) L 03/08/17 11:50 Chloride 106 mmol/L (98-107) 03/08/17 11:50 Carbon Dioxide 21 mmol/L (21-33) 03/08/17 11:50 Anion Gap 14 (10-20) 03/08/17 11:50 BUN 6 mg/dL (7-21) L 03/08/17 11:50 Creatinine 0.5 mg/dL (0.5-1.4) 03/08/17 11:50 Est GFR ( Amer) > 60 03/08/17 11:50 Est GFR (Non-Af Amer) > 60 03/08/17 11:50 Random Glucose 99 mg/dL (70-110) 03/08/17 11:50 Lactic Acid 1.2 mmol/L (0.7-2.1) 03/07/17 12:10 Calcium 10.0 mg/dL (8.4-10.5) 03/08/17 11:50 Total Bilirubin 2.5 mg/dL (0.2-1.3) H 03/08/17 11:50 AST 86 U/L (15-39) H 03/08/17 11:50 ALT 76 U/L (7-56) H 03/08/17 11:50 Alkaline Phosphatase 117 U/L (38-133) 03/08/17 11:50 Troponin I < 0.01 ng/mL 03/06/17 16:30 NT-Pro-B Natriuret Pep 61.9 pg/mL (0-450) 03/06/17 16:30 Total Protein 6.7 g/dL (5.8-8.3) 03/08/17 11:50 Albumin 3.7 g/dL (3.0-4.8) 03/08/17 11:50 Globulin 3.1 gm/dL 03/08/17 11:50 Albumin/Globulin Ratio 1.2 (1.1-1.8) 03/08/17 11:50 Procalcitonin 0.06 NG/ML (0.19-0.49) L 03/06/17 16:30 TSH 3rd Generation < 0.02 mIU/mL (0.46-4.68) L 03/06/17 16:30 Venous Blood Potassium 3.8 mmol/L (3.6-5.2) 03/06/17 16:30 Urine Color Yellow (YELLOW) 03/06/17 16:05 Urine Appearance Sl cloudy (CLEAR) 03/06/17 16:05 Urine pH 6.0 (4.7-8.0) 03/06/17 16:05 Ur Specific [place] 1.015 (1.005-1.035) 03/06/17 16:05 Urine Protein Trace mg/dL (<30 mg/dL) H 03/06/17 16:05 Urine Glucose (UA) Negative mg/dL (NEGATIVE) 03/06/17 16:05 Urine Ketones Negative mg/dL (NEGATIVE) 03/06/17 16:05 Urine Blood Trace-lysed (NEGATIVE) H 03/06/17 16:05 Urine Nitrate Negative (NEGATIVE) 03/06/17 16:05 Urine Bilirubin Negative (NEGATIVE) 03/06/17 16:05 Urine Urobilinogen 0.2 E.U./dL (<1 E.U./dL) 03/06/17 16:05 Ur Leukocyte Esterase Negative Larry/uL (NEGATIVE) 03/06/17 16:05 Urine RBC 1 - 3 /hpf (0-2) 03/06/17 16:05 Urine WBC 2 - 5 /hpf (0-6) 03/06/17 16:05 Ur Epithelial Cells Tntc /hpf (0-5) 03/06/17 16:05 Urine Bacteria Mod (NEG) 03/06/17 16:05 Urine HCG, Qual Positive (NEGATIVE) 03/07/17 22:45 - Hospital Course Hospital Course: Discharge Summary for Dr. Rodriguez - Patient elopement PT S&E at bedside. SABINA. Patient states that she cannot tolerate the pain. Patient was in a bad mood this morning was unhappy. Port site was visualized. Patient states she has neck and shoulder pain radiating on the left side. Pain is located at her port site. Patient states cannot tolerate the pain. She is aware that she is four months and does not want to give a urine test for beta HCG. Patient was positive for on her previous visit. Patient states many times that she wants to be taken care of and that she has an planned for 03/09 EKG: sinus tachycardia 111, with t wave abnormality. consider lateral ischemia 03/07 CXR: no change since 03/03 03/07 Extremity US done this morning. no final read. 03/07 Per Nursing, Patient is reported to have changed IV rate from 150 cc to 20 cc to have less fluid intake. Patient gets easily agitated throughout the day and asks for pain medication. Patient was placed on a scheduled dose of medication and was not give out of schedule medication during her stay on the 5th floor. 03/08 PT S&E at bedside today. Patient agreed to get an Ultrasound of her port that she had refused in the morning. Patient was told her new time for ultrasound was noon. Patient threatened to sign out AMA, but the scheduled ultrasound was not changed. Patient went for the ultrasound after complaining that she couldn't breathe. Nurse noted that she was saturating at 98% on RA. Patient was sent to ultrasound with NC. please see MAR for more information. Patient returned from Ultrasound and stated that she wanted her pain medication. Patient received a lower dose of medication as planned by medical team. Patient wanted to sign AMA. Resident prepared the paperwork and discussed the benefits and cons of leaving AMA. Patient eloped. Patient walked passed resident with AMA papers and ignored attempts to stop patient from leaving. The Patient's nurse and the community development technician witnessed the event. - Date & Time of H&P Date of H&P: 03/08/17 Time of H&P: 15:18 Discharge Exam - Head Exam Head Exam: NORMAL INSPECTION - Eye Exam Eye Exam: EOMI, Normal appearance - ENT Exam ENT Exam: Mucous Membranes Moist - Neck Exam Neck exam: Full Rom - Respiratory Exam Respiratory Exam: NORMAL BREATHING PATTERN. absent: Accessory Muscle Use, Respiratory Distress - Cardiovascular Exam Cardiovascular Exam: REGULAR RHYTHM. absent: Bradycardia, Tachycardia - Extremities Exam Extremities exam: full ROM, tenderness Additional comments: patient has a broken 5th toe. on the left foot - Neurological Exam Neurological exam: Alert, Oriented x3 - Skin Skin Exam: Dry, Intact, Normal Color, Warm Additional comments: port cath site visualized. no drainage, induration Discharge Plan - Follow Up Plan Condition: STABLE Disposition: AGAINST MEDICAL ADVICE Instructions: Acute Abdominal Pain (DC), Acute Abdominal Pain (GEN) Additional Instructions: Patient eloped return to ED for worsening signs of infection see PMD to treat infection Referrals: Arnold Mantilla, [Primary Care Provider] - <Raheel Rodriguez - Last Filed: 03/08/17 21:11> Provider - Provider Date of Admission: 03/06/17 18:52 Attending physician: Susan Torrez MD Primary care physician: Arnold Pratt Required Hospital Course - Lab Results Lab Results: Micro Results 03/07/17 13:33 Blood-Venous Blood Culture - Preliminary NO GROWTH AFTER 24 HOURS 03/07/17 13:28 Blood-Venous Blood Culture - Preliminary NO GROWTH AFTER 24 HOURS Most Recent Lab Values WBC 9.9 10^3/ul (4.5-11.0) 03/08/17 11:50 RBC 2.77 10^6/uL (3.5-6.1) L 03/08/17 11:50 Hgb 8.6 g/dL (12.0-16.0) L 03/08/17 11:50 Hct 24.5 % (36.0-48.0) L 03/08/17 11:50 MCV 84.8 fl (80.0-105.0) 03/08/17 11:50 MCH 31.0 pg (25.0-35.0) 03/08/17 11:50 MCHC 36.6 g/dl (31.0-37.0) 03/08/17 11:50 RDW 15.6 % (11.5-14.5) H 03/08/17 11:50 Plt Count 356 10^3/uL (120.0-450.0) 03/08/17 11:50 MPV 8.3 fl (7.0-11.0) 03/08/17 11:50 Gran % 57.2 % (50.0-68.0) 03/08/17 11:50 Lymph % (Auto) 26.1 % (22.0-35.0) 03/08/17 11:50 Lane % (Auto) 11.0 % (1.0-6.0) H 03/08/17 11:50 Eos % (Auto) 5.5 % (1.5-5.0) H 03/08/17 11:50 Baso % (Auto) 0.2 % (0.0-3.0) 03/08/17 11:50 Gran # 5.69 (1.4-6.5) 03/08/17 11:50 Lymph # 2.6 (1.2-3.4) 03/08/17 11:50 Lane # 1.1 (0.1-0.6) H 03/08/17 11:50 Eos # 0.6 (0.0-0.7) 03/08/17 11:50 Baso # 0.02 K/mm3 (0.0-2.0) 03/08/17 11:50 Neutrophils % (Manual) 65 % (50.0-70.0) 03/06/17 16:30 Lymphocytes % (Manual) 31 % (22.0-35.0) 03/06/17 16:30 Monocytes % (Manual) 3 % (1.0-6.0) 03/06/17 16:30 Platelet Evaluation Normal (NORMAL) 03/06/17 16:30 Polychromasia Slight 03/06/17 16:30 Hypochromasia Slight 03/06/17 16:30 Anisocytosis (manual) Slight 03/06/17 16:30 Sickle Cells Slight 03/06/17 16:30 Target Cells Slight 03/06/17 16:30 Ovalocytes Slight 03/06/17 16:30 Vesna Cells Slight 03/06/17 16:30 Retic Count 12.23 % (0.5-1.5) H* 03/06/17 16:30 pO2 53 mm/Hg (30-55) 03/06/17 16:30 VBG pH 7.43 (7.32-7.43) 03/06/17 16:30 VBG pCO2 33.0 (40-60) L 03/06/17 16:30 VBG HCO3 21.9 mmol/l (21-28) 03/06/17 16:30 VBG Total CO2 22.9 mmol.L (22-28) 03/06/17 16:30 VBG O2 Sat (Calc) 90.2 % (40-65) H 03/06/17 16:30 VBG Base Excess -1.9 mmol/L (0.0-2.0) L 03/06/17 16:30 VBG Potassium 3.8 mmol/L (3.6-5.2) 03/06/17 16:30 Sodium 138.0 mmol/L (132-148) 03/06/17 16:30 Chloride 108.0 mmol/L (98-107) H 03/06/17 16:30 Glucose 83 mg/dl (65-105) 03/06/17 16:30 Lactate 0.9 mmol/L (0.7-2.1) 03/06/17 16:30 FiO2 21.0 % 03/06/17 16:30 Sodium 137 mmol/L (132-148) 03/08/17 11:50 Potassium 3.5 mmol/L (3.6-5.0) L 03/08/17 11:50 Chloride 106 mmol/L (98-107) 03/08/17 11:50 Carbon Dioxide 21 mmol/L (21-33) 03/08/17 11:50 Anion Gap 14 (10-20) 03/08/17 11:50 BUN 6 mg/dL (7-21) L 03/08/17 11:50 Creatinine 0.5 mg/dL (0.5-1.4) 03/08/17 11:50 Est GFR ( Amer) > 60 03/08/17 11:50 Est GFR (Non-Af Amer) > 60 03/08/17 11:50 Random Glucose 99 mg/dL (70-110) 03/08/17 11:50 Lactic Acid 1.2 mmol/L (0.7-2.1) 03/07/17 12:10 Calcium 10.0 mg/dL (8.4-10.5) 03/08/17 11:50 Total Bilirubin 2.5 mg/dL (0.2-1.3) H 03/08/17 11:50 AST 86 U/L (15-39) H 03/08/17 11:50 ALT 76 U/L (7-56) H 03/08/17 11:50 Alkaline Phosphatase 117 U/L (38-133) 03/08/17 11:50 Troponin I < 0.01 ng/mL 03/06/17 16:30 NT-Pro-B Natriuret Pep 61.9 pg/mL (0-450) 03/06/17 16:30 Total Protein 6.7 g/dL (5.8-8.3) 03/08/17 11:50 Albumin 3.7 g/dL (3.0-4.8) 03/08/17 11:50 Globulin 3.1 gm/dL 03/08/17 11:50 Albumin/Globulin Ratio 1.2 (1.1-1.8) 03/08/17 11:50 Procalcitonin 0.06 NG/ML (0.19-0.49) L 03/06/17 16:30 TSH 3rd Generation < 0.02 mIU/mL (0.46-4.68) L 03/06/17 16:30 Venous Blood Potassium 3.8 mmol/L (3.6-5.2) 03/06/17 16:30 Urine Color Yellow (YELLOW) 03/06/17 16:05 Urine Appearance Sl cloudy (CLEAR) 03/06/17 16:05 Urine pH 6.0 (4.7-8.0) 03/06/17 16:05 Ur Specific [place] 1.015 (1.005-1.035) 03/06/17 16:05 Urine Protein Trace mg/dL (<30 mg/dL) H 03/06/17 16:05 Urine Glucose (UA) Negative mg/dL (NEGATIVE) 03/06/17 16:05 Urine Ketones Negative mg/dL (NEGATIVE) 03/06/17 16:05 Urine Blood Trace-lysed (NEGATIVE) H 03/06/17 16:05 Urine Nitrate Negative (NEGATIVE) 03/06/17 16:05 Urine Bilirubin Negative (NEGATIVE) 03/06/17 16:05 Urine Urobilinogen 0.2 E.U./dL (<1 E.U./dL) 03/06/17 16:05 Ur Leukocyte Esterase Negative Larry/uL (NEGATIVE) 03/06/17 16:05 Urine RBC 1 - 3 /hpf (0-2) 03/06/17 16:05 Urine WBC 2 - 5 /hpf (0-6) 03/06/17 16:05 Ur Epithelial Cells Tntc /hpf (0-5) 03/06/17 16:05 Urine Bacteria Mod (NEG) 03/06/17 16:05 Urine HCG, Qual Positive (NEGATIVE) 03/07/17 22:45 Attending/Attestation - Attestation I have personally seen and examined this patient.: Yes I have fully participated in the care of the patient.: Yes I have reviewed all pertinent clinical information, including history, physical exam and plan: Yes Notes (Text): 03/08/17 21:10 Patient seen and exmaine dta bedside. vitals, overnight issues noted. She has generalized bodyaches and is asking for incremental doses of pain medication, bargaining behavior noted again in AM. Refused ultrasound initialy then agreed on condition of getting more dilaudid. Eventually eloped.
--- NOTE | 2017-03-09 08:33 | US ---
PROCEDURE: Right upper extremity venous US CLINICAL HISTORY: Arm pain and swelling Evaluate for deep venous thrombosis. PHYSICIAN(S): Nicholas Blevins M.D FINDINGS: The visualized rightinternal jugular vein is sonographically normal and compressible. No evidence of obstruction or thrombus is seen. The visualized segments of the right subclavian vein are patent with normal waveforms. No sonographic evidence of obstruction or thrombosis is seen. The visualized deep venous system of the proximal right upper extremity is sonographically normal and compressible. IMPRESSION: 1. No sonographic evidence for deep venous thrombosis in the visualized segments of the right upper extremity.
== END 2017-03-08 15:38 | disposition left against medical advice (07) | DRG 543 ==
LOC: ED 15:00 → ERH 18:52 → 5RNO 20:37
PROVIDERS: ADMIT Hospitalist; ATTEND Hospitalist
DX: T80.219A Unspecified infection due to central venous catheter, initial encounter (principal); D57.00 Hb-SS disease with crisis, unspecified; E05.90 Thyrotoxicosis, unspecified without thyrotoxic crisis or storm; M87.9 Osteonecrosis, unspecified; O16.1 Unspecified maternal hypertension, first trimester; F17.210 Nicotine dependence, cigarettes, uncomplicated; O99.331 Smoking (tobacco) complicating pregnancy, first trimester; N83.209 Unspecified ovarian cyst, unspecified side; B96.89 Other specified bacterial agents as the cause of diseases classified elsewhere; J42 Unspecified chronic bronchitis; R07.89 Other chest pain; Y83.8 Other surgical procedures as the cause of abnormal reaction of the patient, or of later complication, without mention of misadventure at the time of the procedure; Z3A.13 13 weeks gestation of pregnancy; Z88.0 Allergy status to penicillin; Z87.440 Personal history of urinary (tract) infections

== ENCOUNTER 2017-06-19 10:38 | Inpatient (IN) | payer MEDICAID ==
[2017-06-19 10:46] VITALS: BMI 27.3
[2017-06-19 10:49] VITALS: TEMP 99.2; O2SAT 100
[2017-06-19] MEDS ORDERED: HYDROmorphone 1 mg/ml ISec IVP STA ×2 (11:57→13:42)
[2017-06-19] MEDS ORDERED: Sodium Chloride 0.9% 1,000 ML IV SCH ×2 (12:00→17:00)
[2017-06-19 12:04] LABS: BASO # 0.05 K/mm3 (0.0-2.0); BASO % 0.4 % (0.0-3.0); EOS # 0.4 (0.0-0.7); EOS % 3.8 % (1.5-5.0); GRAN # 7.31 (1.4-6.5); GRAN % 62.3 % (50.0-68.0); LYMPH # 2.9 (1.2-3.4); LYMPH % 24.7 % (22.0-35.0); MEAN CELL VOLUME 87.3 fl (80.0-105.0); MEAN CORPUSCULAR HEMOGLOBIN 30.6 pg (25.0-35.0); MEAN PLATELET VOLUME 8.8 fl (7.0-11.0); MONO % 8.8 % (1.0-6.0); RED CELL DISTRIBUTION WIDTH 17.2 % (11.5-14.5); WHITE BLOOD COUNT 11.7 10^3/ul (4.5-11.0)
[2017-06-19 12:05] LABS: HEMATOCRIT 23.4 % (36.0-48.0); RETIC% 11.1 % (0.5-1.5)
[2017-06-19] MEDS: Albuterol-Ipratrop 3 mg / 0.5 (3 ml) UD IH SCH ×3 (12:08→12:49)
[2017-06-19 12:24] LABS: TROPONIN I 0.02 ng/mL
[2017-06-19 12:26] LABS: BLOOD UREA NITROGEN 4 mg/dL (7-21); CALCIUM 9.3 mg/dL (8.4-10.5); CARBON DIOXIDE 24 mmol/L (21-33); CHLORIDE 109 mmol/L (98-107); GFR AFRICAN-AMERICAN > 60; GLUCOSE,RANDOM 68 mg/dL (70-110); POTASSIUM 2.9 mmol/L (3.6-5.0); SODIUM 139 mmol/L (132-148)
[2017-06-19 12:27] LABS: INR 1.11 (0.93-1.08)
[2017-06-19] MEDS ORDERED: Potassium Chloride 20 mEq ER Tab PO STA (12:34)
--- NOTE | 2017-06-19 12:39 | ED PDOC ---
Arrival/HPI - General Chief Complaint: Pain, Chronic Time Seen by Provider: 06/19/17 11:14 Historian: Patient - History of Present Illness Narrative History of Present Illness (Text): 06/19/17 11:45 A 31 year old female who is 30 weeks , whose past medical history includes sickle cell anemia, asthma, CHF, and thyroid disease, presents to the emergency department for generalized body pain, which began 5 days ago. The patient reports she has upper extremity pain, chest pain, knee pain, ankle pain with the left ankle worse than the right, she also notes a cough, nasal congestion, asthma with wheezing, diarrhea, and she admits to being around 2 sick contacts. The patient denies any abdominal pain, vaginal bleeding, vaginal discharge, back pain, nausea, vomiting, fever, or any other complaints at this time. PMD: Dr. Tiesha Perdomo OBGYN: Dr. Edward Perdomo P:1 A:4 Time/Duration: < week (x 5 days ) Symptom Onset: Gradual Symptom Course: Unchanged Quality: Aching Activities at Onset: Rest, Light Context: Home Past Medical History - Provider Review Nursing Documentation Reviewed: Yes - Infectious Disease Hx of Infectious Diseases: None - Tetanus Immunization Tetanus Immunization: Up to Date - Reproductive Menopause: No - Cardiac Hx Hypertension: Yes Hx Peripheral Edema: Yes (lle +1 edema) - Pulmonary Hx Bronchitis: Yes (chronic) - Neurological Hx Neurological Disorder: No - HEENT Hx HEENT Disorder: No - Renal Hx Renal Disorder: No - Endocrine/Metabolic Hx Hyperthyroidism: Yes Hx Hypothyroidism: Yes - Hematological/Oncological Hx Anemia: Yes (blood transfusions) Hx Sickle Cell Disease: Yes - Integumentary Hx Dermatological Disorder: No - Musculoskeletal/Rheumatological Hx Falls: Yes - Gastrointestinal Hx Gastrointestinal Disorders: No - Genitourinary/Gynecological Hx Genitourinary Disorders: Yes (c/s x2, removal of left fallopian tube for ectopic pregnacy) Hx Urinary Tract Infection: Yes Other/Comment: ovarian cyst - Psychiatric Hx Anxiety: Yes Hx Depression: No Hx Substance Use: No - Past Surgical History Past Surgical History: No Previous - Surgical History Other/Comment: Port in L chest, toe fracture - Anesthesia Hx Anesthesia: Yes Hx Anesthesia Reactions: No Hx Malignant Hyperthermia: No - Suicidal Assessment Feels Threatened In Home Enviroment: No Family/Social History - Physician Review Nursing Documentation Reviewed: Yes Family/Social History: No Known Family HX Smoking Status: Never Smoked Hx Alcohol Use: Yes Hx Substance Use: No Hx Substance Use Treatment: No Allergies/Home Meds Allergies/Adverse Reactions: Allergies acetaminophen [From Percocet] Allergy (Verified 06/19/17 10:46) RASH ketorolac tromethamine [From Toradol] Allergy (Verified 06/19/17 10:46) ITCHING morphine Allergy (Verified 06/19/17 10:46) RASH oxycodone [From Percocet] Allergy (Verified 06/19/17 10:46) RASH Penicillins Allergy (Verified 06/19/17 10:46) RASH tramadol Allergy (Verified 06/19/17 10:46) DIZZINESS Home Medications: Home Meds Medication Instructions Recorded Confirmed Albuterol HFA [Ventolin HFA 90 2 puff IH [id number] PRN 12/22/16 06/19/17 mcg/actuation (8 g)] HYDROmorphone [Dilaudid] 4 mg PO Q6 03/25/17 06/19/17 Metoprolol Tartrate [Lopressor] 25 mg PO BID 03/29/17 06/19/17 Review of Systems - Physician Review All systems were reviewed & negative as marked: Yes - Review of Systems Constitutional: absent: Fevers ENT: Sinus Congestion Respiratory: Cough Cardiovascular: Chest Pain Gastrointestinal: Diarrhea, Other. absent: Abdominal Pain, Nausea, Vomiting Genitourinary Female: Normal. absent: Vaginal Bleeding, Vaginal Discharge Musculoskeletal: Joint Swelling (knee pain; ankle pain), Myalgias (upper extremity pain). absent: Back Pain Physical Exam Vital Signs Reviewed: Yes Vital Signs Temp Pulse Resp BP Pulse Ox 06/19/17 15:05 98 H 18 128/69 100 06/19/17 12:49 104 H 18 135/71 100 06/19/17 11:45 103 H 18 138/79 100 06/19/17 10:48 99.2 F 106 H 18 142/81 100 Temperature: Afebrile Blood Pressure: Normal Pulse: Tachycardic Respiratory Rate: Normal Appearance: Positive for: Well-Appearing, Non-Toxic, Comfortable Pain Distress: None Mental Status: Positive for: Alert and Oriented X 3 - Systems Exam Head: Present: Atraumatic, Normocephalic Pupils: Present: PERRL Extroacular Muscles: Present: EOMI Conjunctiva: Present: Normal Mouth: Present: Moist Mucous Membranes Neck: Present: Normal Range of Motion Respiratory/Chest: Present: Wheezes (bilateral wheezing), Other (good air entry) . No: Respiratory Distress, Accessory Muscle Use, Retracting Abdomen: Present: Normal Bowel Sounds, Other (). No: Tenderness Upper Extremity: Present: Normal Inspection. No: Cyanosis, Edema Lower Extremity: Present: Normal Inspection. No: Edema Neurological: Present: GCS=15, CN II-XII Intact, Speech Normal Skin: Present: Warm, Dry, Normal Color. No: Rashes Psychiatric: Present: Alert, Oriented x 3, Normal Insight, Normal Concentration Medical Decision Making ED Course and Treatment: 06/19/17 12:00 Impression: A 31 year old female with generalized body pain. Differential Diagnosis included but are not limited to: Sickle cell crisis vs. asthma exacerbation rule out pneumonia; Plan: -- Chest X-ray -- Magnesium Stat -- Labs -- IV Fluids, Dilaudid, Solu-medrol, Potassium Chloride -- O2 via Nasal Cannula -- Reassess and disposition Progress Notes: 06/19/17 12:00 I discussed the risks of opioid usage with the patient, she understands the risks and states she is currently taking Dilaudid at home for pain and states it isn't helping her pain and she needs IV medications. 06/19/17 13:03 Ultrasound shows good heart rate and good movement. Soo Maldonado was present and chaperoned throughout ultrasound. 06/19/17 13:54 Chest X-ray [place] Worker Helper : Micha Torres MD Report Date : 06/19/2017 12:59:48 HISTORY:cough r/o pna COMPARISON:03/06/2017 FINDINGS: LUNGS:No active pulmonary disease. PLEURA:No significant pleural effusion identified, no pneumothorax apparent. CARDIOVASCULAR:Moderate cardiomegaly OSSEOUS STRUCTURES:No significant abnormalities. VISUALIZED UPPER ABDOMEN:Normal. OTHER FINDINGS:None. IMPRESSION:No active disease. 06/19/17 15:25 Potassium and Magnesium low so treated with PO and IV Potassium and PO Magnesium. Retic count elevated. Patient tread with IVF and multiple treatments of pain medication and still having symptoms. Patient treated with duonebs and Solumedrol and still having wheezing on exam. She is not in respiratory distress. During he ED stay she has not had abdominal pain or vaginal bleeding. Case was discussed with Dr. Sims to admit patient for Sickle Cell Crisis and Asthma exacerbation. Patient is refusing EKG despite explanation of the need because of her electrolyte abnormality. - Lab Interpretations Lab Results: 06/19/17 10:57 06/19/17 10:57 Lab Results 06/19/17 14:00: Influenza Typ A,B (EIA) Negative for flu a/b 06/19/17 12:40: Magnesium 1.3 L 06/19/17 10:57: Sodium 139, Potassium 2.9 L*, Chloride 109 H, Carbon Dioxide 24 , Anion Gap 10, BUN 4 L, Creatinine 0.4 L, Est GFR ( Amer) > 60, Est GFR (Non-Af Amer) > 60, Random Glucose 68 L, Calcium 9.3, Lactate Dehydrogenase 738 H, Total Creatine Kinase < 20 L, Troponin I 0.02 D, NT-Pro-B Natriuret Pep 368 06/19/17 10:57: PT 12.2, INR 1.11 H, APTT 25.0 L 06/19/17 10:57: WBC 11.7 H, RBC 2.68 L, Hgb 8.2 L, Hct 23.4 L, MCV 87.3, MCH 30.6, MCHC 35.0, RDW 17.2 H, Plt Count 362, MPV 8.8, Gran % 62.3, Lymph % (Auto ) 24.7, Dukes % (Auto) 8.8 H, Eos % (Auto) 3.8, Baso % (Auto) 0.4, Gran # 7.31 H , Lymph # 2.9, Dukes # 1.0 H, Eos # 0.4, Baso # 0.05, Retic Count 11.10 H* Interpretation: Abnormal lab values - RAD Interpretation Radiology Orders: 06/19/17 11:56 CHEST PORTABLE [RAD] Stat - Medication Orders Current Medication Orders: Albuterol/Ipratropium (Duoneb 3 Mg/0.5 Mg (3 Ml) Ud) 3 ml IH [id number] PRN PRN Reason: Wheezing Last Admin: 06/19/17 20:34 Dose: 3 ml Hydromorphone HCl (Dilaudid) 1 mg IVP Q4H PRN PRN Reason: Pain, severe (8-10) Last Admin: 06/19/17 18:31 Dose: 1 mg MAR Pain Assessment Document 06/19/17 18:31 SE (Rec: 06/19/17 18:31 SE [id number]) Pain Reassessment Is this a pain reassessment? No Sleep Is patient sleeping during reassessment? No Presence of Pain Presence of Pain Yes Pain Scale Used Pain Scale Used Numeric IVP Administration Document 06/19/17 18:31 SE (Rec: 06/19/17 18:31 SE [id number]) Charges for Administration # of IVP Administrations 1 Potassium Chloride 20 meq/ (Dextrose/Sodium Chloride) 1,010 mls @ 100 mls/hr IV .Q10H6M LEAH Last Admin: 06/19/17 12:56 Dose: 100 mls/hr eMAR Start Stop Document 06/19/17 12:56 SE (Rec: 06/19/17 12:56 SE [id number]) Intravenous Solution Start Date 06/19/17 Start Time 12:56 Sodium Chloride (Sodium Chloride 0.9%) 1,000 mls @ 100 mls/hr IV .Q10H LEAH Last Admin: 06/19/17 18:16 Dose: Metoprolol Tartrate (Lopressor) 25 mg PO BID LEAH Discontinued Medications Albuterol Sulfate (Albuterol 0.5% Inhal Susan (2.5 Mg/0.5 Ml) Ud) 2.5 mg IH STAT STA Stop: 06/19/17 13:43 Last Admin: 06/19/17 13:58 Dose: 2.5 mg Albuterol/Ipratropium (Duoneb 3 Mg/0.5 Mg (3 Ml) Ud) 3 ml IH Q15M LEAH Stop: 06/19/17 12:31 Last Admin: 06/19/17 12:49 Dose: 3 ml Hydromorphone HCl (Dilaudid) 1 mg IVP STAT STA Stop: 06/19/17 11:58 Last Admin: 06/19/17 12:07 Dose: 1 mg MAR Pain Assessment Document 06/19/17 12:07 SE (Rec: 06/19/17 12:07 SE [id number]) Pain Reassessment Is this a pain reassessment? No Sleep Is patient sleeping during reassessment? No Presence of Pain Presence of Pain Yes Pain Scale Used Pain Scale Used Numeric Location Pain Location Body Site Joint Generalized IVP Administration Document 06/19/17 12:07 SE (Rec: 06/19/17 12:07 SE [id number]) Charges for Administration # of IVP Administrations 1 Hydromorphone HCl (Dilaudid) 1 mg IVP STAT STA Stop: 06/19/17 13:43 Last Admin: 06/19/17 13:58 Dose: 1 mg MAR Pain Assessment Document 06/19/17 13:58 SE (Rec: 06/19/17 13:58 SE [id number]) Pain Reassessment Is this a pain reassessment? No Sleep Is patient sleeping during reassessment? No Presence of Pain Presence of Pain Yes Pain Scale Used Pain Scale Used Numeric Location Pain Location Body Site Generalized IVP Administration Document 06/19/17 13:58 SE (Rec: 06/19/17 13:58 SE [id number]) Charges for Administration # of IVP Administrations 1 Hydromorphone HCl (Dilaudid) 2 mg IVP STAT STA Stop: 06/19/17 14:36 Last Admin: 06/19/17 14:39 Dose: 2 mg MAR Pain Assessment Document 06/19/17 14:39 SE (Rec: 06/19/17 14:39 SE [id number]) Pain Reassessment Is this a pain reassessment? No Sleep Is patient sleeping during reassessment? No Presence of Pain Presence of Pain Yes Pain Scale Used Pain Scale Used Numeric IVP Administration Document 06/19/17 14:39 SE (Rec: 06/19/17 14:39 SE [id number]) Charges for Administration # of IVP Administrations 1 Hydromorphone HCl (Dilaudid) 1 mg SC Q4H PRN PRN Reason: Pain, severe (8-10) Sodium Chloride (Sodium Chloride 0.9%) 1,000 mls @ 100 mls/hr IV .Q10H LEAH Last Admin: 06/19/17 12:04 Dose: 100 mls/hr eMAR Start Stop Document 06/19/17 12:04 SE (Rec: 06/19/17 12:04 SE [id number]) Intravenous Solution Start Date 06/19/17 Start Time 12:04 Potassium Chloride (Potassium Chloride 20 Meq/100 Ml) 20 meq in 100 mls @ 50 mls/hr IVPB ONCE ONE Stop: 06/19/17 14:34 Last Admin: 06/19/17 12:56 Dose: 50 mls/hr eMAR Start Stop Document 06/19/17 12:56 SE (Rec: 06/19/17 12:56 SE [id number]) Intravenous Solution Start Date 06/19/17 Start Time 12:56 Magnesium Oxide (Mag-Ox) 400 mg PO STAT STA Stop: 06/19/17 13:10 Last Admin: 06/19/17 13:58 Dose: 400 mg Methylprednisolone (Solu-Medrol) 125 mg IVP STAT STA Stop: 06/19/17 11:56 Last Admin: 06/19/17 12:08 Dose: 125 mg IVP Administration Document 06/19/17 12:08 SE (Rec: 06/19/17 12:08 SE [id number]) Charges for Administration # of IVP Administrations 1 Potassium Chloride (K-Dur 20 Meq Er Tab) 40 meq PO STAT STA Stop: 06/19/17 12:35 Last Admin: 06/19/17 12:55 Dose: 40 meq - Scribe Statement The provider has reviewed the documentation as recorded by the Ralph Maldonado Provider Scribe Attestation: All medical record entries made by the Nicoleibfatuma were at my direction and personally dictated by me. I have reviewed the chart and agree that the record accurately reflects my personal performance of the history, physical exam, medical decision making, and the department course for this patient. I have also personally directed, reviewed, and agree with the discharge instructions and disposition. Disposition/Present on Arrival - Present on Arrival Any Indicators Present on Arrival: No History of DVT/PE: No History of Uncontrolled Diabetes: No Urinary Catheter: No History of Decub. Ulcer: No History Surgical Site Infection Following: None - Disposition Have Diagnosis and Disposition been Completed?: Yes Diagnosis: Sickle cell crisis, Asthma exacerbation, , Hypokalemia Disposition: HOSPITALIZED Disposition Time: 15:25 Condition: GUARDED
[2017-06-19] MEDS: Potassium Chloride 20 MEQ in Dextrose 5%/0.45% NS 1,000 ML IV SCH ×2 (12:56→23:40)
--- NOTE | 2017-06-19 13:02 | RAD ---
HISTORY: cough r/o pna COMPARISON: 03/06/2017 FINDINGS: LUNGS: No active pulmonary disease. PLEURA: No significant pleural effusion identified, no pneumothorax apparent. CARDIOVASCULAR: Moderate cardiomegaly OSSEOUS STRUCTURES: No significant abnormalities. VISUALIZED UPPER ABDOMEN: Normal. OTHER FINDINGS: None. IMPRESSION: No active disease.
[2017-06-19] MEDS ORDERED: Magnesium Oxide 400 mg Tab UD PO STA (13:09)
[2017-06-19] MEDS ORDERED: Albuterol 0.5% Inhal Sol (2.5 mg/0.5 ml) UD IH STA (13:42)
[2017-06-19] MEDS ORDERED: HYDROmorphone 2 mg/ml ISec IVP STA (14:35)
[2017-06-19 15:05] VITALS: BP 128/69
[2017-06-19] MEDS ORDERED: Albuterol-Ipratrop 3 mg / 0.5 (3 ml) UD IH PRN ×2 (16:18→16:51)
[2017-06-19] MEDS ORDERED: HYDROmorphone 0.5 mg/0.5 ml ISec SC PRN (16:49)
--- NOTE | 2017-06-19 17:06 | CP.PCM.HP ---
<Jg Ohara - Last Filed: 06/19/17 17:10> History of Present Illness - History of Present Illness History of Present Illness: 31 year old female with past medical history of anemia, sickle cell disease, avascular necrosis of shoulders and hips, CHF, asthma, and thyroid disease who comes into the emergency department after with complaints of body pain for the past five days. The patient also reports feet pain and swelling, hand swelling, shortness of breath, and diarrhea and conjunction with the presenting problem. The patient states the pain began on Thursday and that she tried to stay home and use her Dilaudid to alleviate the pain, however today she decided to come in after the pain wasn't improving after taking the dilaudid and could only stand on her feet for short periods of time due to the pain. The patient also reports some wheezing and chest pain with the onset of the diffuse body pain. She reports having two sick contacts in the household. She also reports feeling feverish. She denies any alleviating or modifying factors. She denies any lightheadedness, dizziness, changes in vision, constipation, cough, or any other complaints. PMH: sickle cell (SS), avascular necrosis, chronic bronchitis, hyperthyroidism, HTN PSH: , port-cath placement, D&C Family: Brother-Sickle cell, Mother-RCC, Father-DM Social: smokes 1 cigarette/day, drink 2 cups of alcohol per week, denies illicit drug use Allergies: ketorolac, morphine, penicillins, tramadol Home Meds: As per MAR Present on Admission - Present on Admission Any Indicators Present on Admission: No Review of Systems - Constitutional Constitutional: As Per HPI - EENT Eyes: As Per HPI Ears: As Per HPI Nose/Mouth/Throat: As Per HPI - Cardiovascular Cardiovascular: As Per HPI - Respiratory Respiratory: As Per HPI - Gastrointestinal Gastrointestinal: As Per HPI - Genitourinary Genitourinary: As Per HPI - Musculoskeletal Musculoskeletal: As Per HPI - Integumentary Integumentary: As Per HPI - Neurological Neurological: As Per HPI - Psychiatric Psychiatric: As Per HPI - Endocrine Endocrine: As Per HPI Past Patient History - Infectious Disease Hx of Infectious Diseases: None - Tetanus Immunizations Tetanus Immunization: Up to Date - Past Medical History & Family History Past Medical History?: Yes - Past Social History Smoking Status: Never Smoked - CARDIAC Hx Hypertension: Yes Hx Peripheral Edema: Yes (lle +1 edema) - PULMONARY Hx Bronchitis: Yes (chronic) - NEUROLOGICAL Hx Neurological Disorder: No - HEENT Hx HEENT Problems: No - RENAL Hx Chronic Kidney Disease: No - ENDOCRINE/METABOLIC Hx Hyperthyroidism: Yes Hx Hypothyroidism: Yes - HEMATOLOGICAL/ONCOLOGICAL Hx Anemia: Yes (blood transfusions) Hx Sickle Cell Disease: Yes - INTEGUMENTARY Hx Dermatological Problems: No - MUSCULOSKELETAL/RHEUMATOLOGICAL Hx Falls: Yes - GASTROINTESTINAL Hx Gastrointestinal Disorders: No - GENITOURINARY/GYNECOLOGICAL Hx Genitourinary Disorders: Yes (c/s x2, removal of left fallopian tube for ectopic pregnacy) Hx Urinary Tract Infection: Yes Other/Comment: ovarian cyst - PSYCHIATRIC Hx Anxiety: Yes Hx Depression: No Hx Substance Use: No - SURGICAL HISTORY Other/Comment: Port in L chest, toe fracture - ANESTHESIA Hx Anesthesia: Yes Hx Anesthesia Reactions: No Hx Malignant Hyperthermia: No Meds Allergies/Adverse Reactions: Allergies Allergy/AdvReac Type Severity Reaction Status Date / Time acetaminophen [From Percocet] Allergy RASH Verified 06/19/17 10:46 ketorolac tromethamine Allergy ITCHING Verified 06/19/17 10:46 [From Toradol] morphine Allergy RASH Verified 06/19/17 10:46 oxycodone [From Percocet] Allergy RASH Verified 06/19/17 10:46 Penicillins Allergy RASH Verified 06/19/17 10:46 tramadol Allergy DIZZINESS Verified 06/19/17 10:46 Physical Exam - Head Exam Head Exam: ATRAUMATIC, NORMAL INSPECTION, NORMOCEPHALIC - Eye Exam Eye Exam: EOMI, Normal appearance, PERRL. absent: Periorbital tenderness Pupil Exam: NORMAL ACCOMODATION, PERRL. absent: Irregular, Unequal - ENT Exam ENT Exam: Mucous Membranes Moist, Normal Exam, Normal Oropharynx - Neck Exam Neck exam: Positive for: Normal Inspection. Negative for: Lymphadenopathy, Thyromegaly - Respiratory Exam Respiratory Exam: Wheezes, NORMAL BREATHING PATTERN - Cardiovascular Exam Cardiovascular Exam: REGULAR RHYTHM, RRR, +S1, +S2. absent: Gallop, Rubs - GI/Abdominal Exam GI & Abdominal Exam: Normal Bowel Sounds, Soft. absent: Hypoactive Bowel Sounds , Organomegaly, Tenderness - Extremities Exam Extremities exam: Positive for: full ROM, joint swelling, normal inspection, tenderness - Back Exam Back exam: NORMAL INSPECTION. absent: paraspinal tenderness - Neurological Exam Neurological exam: Alert, CN II-XII Intact, Oriented x3 - Psychiatric Exam Psychiatric exam: Normal Affect, Normal Mood - Skin Skin Exam: Dry, Intact Results - Vital Signs Recent Vital Signs: Last Vital Signs Temp 99.2 F 06/19/17 10:48 Pulse 98 H 06/19/17 15:05 Resp 18 06/19/17 15:05 BP 128/69 06/19/17 15:05 Pulse Ox 100 06/19/17 15:05 - Labs Result Diagrams: 06/19/17 10:57 06/19/17 10:57 Labs: Laboratory Results - last 24 hr 06/19/17 06/19/17 06/19/17 10:57 10:57 10:57 WBC 11.7 H RBC 2.68 L Hgb 8.2 L Hct 23.4 L MCV 87.3 MCH 30.6 MCHC 35.0 RDW 17.2 H Plt Count 362 MPV 8.8 Gran % 62.3 Lymph % (Auto) 24.7 Mathews % (Auto) 8.8 H Eos % (Auto) 3.8 Baso % (Auto) 0.4 Gran # 7.31 H Lymph # 2.9 Mathews # 1.0 H Eos # 0.4 Baso # 0.05 Retic Count 11.10 H* PT 12.2 INR 1.11 H APTT 25.0 L Sodium 139 Potassium 2.9 L* Chloride 109 H Carbon Dioxide 24 Anion Gap 10 BUN 4 L Creatinine 0.4 L Est GFR ( Amer) > 60 Est GFR (Non-Af Amer) > 60 Random Glucose 68 L Calcium 9.3 Magnesium Lactate Dehydrogenase 738 H Total Creatine Kinase < 20 L Troponin I 0.02 D NT-Pro-B Natriuret Pep 368 Influenza Typ A,B (EIA) 06/19/17 06/19/17 12:40 14:00 WBC RBC Hgb Hct MCV MCH MCHC RDW Plt Count MPV Gran % Lymph % (Auto) Mathews % (Auto) Eos % (Auto) Baso % (Auto) Gran # Lymph # Mathews # Eos # Baso # Retic Count PT INR APTT Sodium Potassium Chloride Carbon Dioxide Anion Gap BUN Creatinine Est GFR ( Amer) Est GFR (Non-Af Amer) Random Glucose Calcium Magnesium 1.3 L Lactate Dehydrogenase Total Creatine Kinase Troponin I NT-Pro-B Natriuret Pep Influenza Typ A,B (EIA) Negative for flu a/b Assessment & Plan - Assessment and Plan (Free Text) Plan: 1. Sickle Cell Crisis -CXR: No Active Disease -Reticulocyte count ordered for the morning. -Dilaudid 1mg SC Q4H for pain -IVF: NS at 100 mls/hr -O2 via NC at 2L/min -cont folate -will cont to monitor with daily CBC's 2. Electrolye imbalances -Will replete K and Mg as needed. -Will monitor with serial CMP's. 4. History of Asthma -Wheezing appreciated on physical exam. -Duonebs Q4H PRN -home meds held. Will monitor closely. 5. History of HTN -cont metoprolol 6. History of Hypothyroidism -cont PTU 7. GI/DVT Prophylaxis -SCD's <Zoey Sims - Last Filed: 06/23/17 00:04> Results - Vital Signs Recent Vital Signs: Last Vital Signs Temp 99.2 F 06/19/17 10:48 Pulse 104 H 06/20/17 02:00 Resp 20 06/19/17 22:22 BP 128/69 06/19/17 15:05 Pulse Ox 100 06/19/17 15:05 - Labs Result Diagrams: 06/19/17 10:57 06/19/17 10:57 Attending/Attestation - Attestation I have personally seen and examined this patient.: Yes I have fully participated in the care of the patient.: Yes I have reviewed all pertinent clinical information: Yes
[2017-06-19] MEDS: HYDROmorphone 1 mg/ml ISec IVP PRN ×2 (18:31→23:40)
[2017-06-19 23:18] VITALS: RESP 20
--- NOTE | 2017-06-20 01:18 | CP.PCM.PN ---
Subjective - Date & Time of Evaluation Date of Evaluation: 06/19/17 Time of Evaluation: 23:30 - Subjective Subjective: Rob Gayle - Overnight progress note 31 yo F who is 30 weeks , admitted for sickle cell crisis. I was called to bedside as patient was complaining of severe pain, crying, in acute distress. Pain was in upper chest and lower abdomen, constant, dull ache, similar to her prior sickle crisis pains. Patient had dilaudid 1mg Q4H PRN ordered, but nurse unable to administer medication in female, whom he does not have training for. I called Dr. Lopez (OBGYN allergist/pediatric pulmonologist) who recommended transfer to [facility] or [facility] for medical management of sickle cell crisis in high risk premature female. He also recommended abdominal duplex, considering as monitoring is not a viable, possible option at this facility. I called and spoke to Dr. Choi at [facility] who accepted the transfer. Discussed transfer, exam, and analgesia with patient, including risks and benefits of each. Patient verbalized understanding and agreement with plan to transfer, as well as the risks of administering IV dilaudid without constant monitoring. - Initiated transfer to [facility] - Administered one dose of 1mg dilaudid, IVP - Patient was much more comfortable on reexamination - Ordered abdominal duplex - Continue to monitor patient's clinical status Patient discussed and reviewed with attending Objective - Vital Signs/Intake and Output Vital Signs (last 24 hours): Temp Pulse Resp BP Pulse Ox 99.2 F 100 H 20 128/69 100 06/19/17 10:48 06/19/17 20:33 06/19/17 22:22 06/19/17 15:05 06/19/17 15:05 Intake and Output: 06/19/17 06/20/17 18:59 06:59 Intake Total 900 Output Total 1 Balance 899 - Medications Medications: Current Medications Albuterol/Ipratropium (Duoneb 3 Mg/0.5 Mg (3 Ml) Ud) 3 ml IH [id number] PRN PRN Reason: Wheezing Last Admin: 06/19/17 20:34 Dose: 3 ml Hydromorphone HCl (Dilaudid) 1 mg IVP Q4H PRN PRN Reason: Pain, severe (8-10) Last Admin: 06/19/17 18:31 Dose: 1 mg Potassium Chloride 20 meq/ (Dextrose/Sodium Chloride) 1,010 mls @ 100 mls/hr IV .Q10H6M [facility] Last Admin: 06/19/17 12:56 Dose: 100 mls/hr Sodium Chloride (Sodium Chloride 0.9%) 1,000 mls @ 100 mls/hr IV .Q10H [facility] Last Admin: 06/19/17 18:16 Dose: Not Given Metoprolol Tartrate (Lopressor) 25 mg PO BID LEAH - Labs Labs: PT 12.2 SECONDS (9.4-12.5) 06/19/17 10:57 INR 1.11 (0.93-1.08) H 06/19/17 10:57 APTT 25.0 Seconds (25.1-36.5) L 06/19/17 10:57
[2017-06-20] MEDS: HYDROmorphone 1 mg/ml ISec IVP PRN (03:40)
[2017-06-20 04:29] VITALS: PULSE 104
--- NOTE | 2017-06-20 05:03 | CP.PCM.PN ---
Objective - Vital Signs/Intake and Output Vital Signs (last 24 hours): Temp Pulse Resp BP Pulse Ox 99.2 F 104 H 20 128/69 100 06/19/17 10:48 06/20/17 02:00 06/19/17 22:22 06/19/17 15:05 06/19/17 15:05 Intake and Output: 06/19/17 06/20/17 18:59 06:59 Intake Total 900 Output Total 1 Balance 899 - Medications Medications: Current Medications Albuterol/Ipratropium (Duoneb 3 Mg/0.5 Mg (3 Ml) Ud) 3 ml IH [id number] PRN PRN Reason: Wheezing Last Admin: 06/19/17 20:34 Dose: 3 ml Hydromorphone HCl (Dilaudid) 1 mg IVP Q4H PRN PRN Reason: Pain, severe (8-10) Last Admin: 06/20/17 03:40 Dose: 1 mg Potassium Chloride 20 meq/ (Dextrose/Sodium Chloride) 1,010 mls @ 100 mls/hr IV .Q10H6M LEAH Last Admin: 06/19/17 23:40 Dose: 100 mls/hr Sodium Chloride (Sodium Chloride 0.9%) 1,000 mls @ 100 mls/hr IV .Q10H LEAH Last Admin: 06/19/17 18:16 Dose: Not Given Metoprolol Tartrate (Lopressor) 25 mg PO BID LEAH - Labs Labs: PT 12.2 SECONDS (9.4-12.5) 06/19/17 10:57 INR 1.11 (0.93-1.08) H 06/19/17 10:57 APTT 25.0 Seconds (25.1-36.5) L 06/19/17 10:57
--- NOTE | 2017-06-21 12:20 | CP.PCM.DIS ---
<Abhishek Longo - Last Filed: 06/21/17 12:17> Provider - Provider Date of Admission: 06/19/17 15:25 Attending physician: Zoey Sims MD Primary care physician: NO PRIMARY CARE PROVIDER Time Spent in preparation of Discharge (in minutes): 45 Diagnosis - Discharge Diagnosis (1) Asthma Status: Chronic Priority: Medium (2) Avascular necrosis Status: Chronic Priority: Medium (3) Anemia Status: Chronic Priority: Medium (4) Status: Chronic Priority: Medium (5) Sickle cell crisis Status: Acute Priority: High Hospital Course - Lab Results Lab Results: Most Recent Lab Values WBC 11.7 10^3/ul (4.5-11.0) H 06/19/17 10:57 RBC 2.68 10^6/uL (3.5-6.1) L 06/19/17 10:57 Hgb 8.2 g/dL (12.0-16.0) L 06/19/17 10:57 Hct 23.4 % (36.0-48.0) L 06/19/17 10:57 MCV 87.3 fl (80.0-105.0) 06/19/17 10:57 MCH 30.6 pg (25.0-35.0) 06/19/17 10:57 MCHC 35.0 g/dl (31.0-37.0) 06/19/17 10:57 RDW 17.2 % (11.5-14.5) H 06/19/17 10:57 Plt Count 362 10^3/uL (120.0-450.0) 06/19/17 10:57 MPV 8.8 fl (7.0-11.0) 06/19/17 10:57 Gran % 62.3 % (50.0-68.0) 06/19/17 10:57 Lymph % (Auto) 24.7 % (22.0-35.0) 06/19/17 10:57 Dale % (Auto) 8.8 % (1.0-6.0) H 06/19/17 10:57 Eos % (Auto) 3.8 % (1.5-5.0) 06/19/17 10:57 Baso % (Auto) 0.4 % (0.0-3.0) 06/19/17 10:57 Gran # 7.31 (1.4-6.5) H 06/19/17 10:57 Lymph # 2.9 (1.2-3.4) 06/19/17 10:57 Dale # 1.0 (0.1-0.6) H 06/19/17 10:57 Eos # 0.4 (0.0-0.7) 06/19/17 10:57 Baso # 0.05 K/mm3 (0.0-2.0) 06/19/17 10:57 Retic Count 11.10 % (0.5-1.5) H* 06/19/17 10:57 PT 12.2 SECONDS (9.4-12.5) 06/19/17 10:57 INR 1.11 (0.93-1.08) H 06/19/17 10:57 APTT 25.0 Seconds (25.1-36.5) L 06/19/17 10:57 Sodium 139 mmol/L (132-148) 06/19/17 10:57 Potassium 2.9 mmol/L (3.6-5.0) L* 06/19/17 10:57 Chloride 109 mmol/L (98-107) H 06/19/17 10:57 Carbon Dioxide 24 mmol/L (21-33) 06/19/17 10:57 Anion Gap 10 (10-20) 06/19/17 10:57 BUN 4 mg/dL (7-21) L 06/19/17 10:57 Creatinine 0.4 mg/dl (0.7-1.2) L 06/19/17 10:57 Est GFR ( Amer) > 60 06/19/17 10:57 Est GFR (Non-Af Amer) > 60 06/19/17 10:57 Random Glucose 68 mg/dL (70-110) L 06/19/17 10:57 Calcium 9.3 mg/dL (8.4-10.5) 06/19/17 10:57 Magnesium 1.3 mg/dL (1.7-2.2) L 06/19/17 12:40 Lactate Dehydrogenase 738 U/L (333-699) H 06/19/17 10:57 Total Creatine Kinase < 20 U/L (35-230) L 06/19/17 10:57 Troponin I 0.02 ng/mL 06/19/17 20:30 NT-Pro-B Natriuret Pep 368 pg/mL (0-450) 06/19/17 10:57 Influenza Typ A,B (EIA) Negative for flu a/b (NEGATIVE) 06/19/17 14:00 - Hospital Course Hospital Course: Patient is a 31 year old female with past medical history of anemia, sickle cell disease, avascular necrosis of shoulders and hips, CHF, asthma, and thyroid disease who was admitted for evaluation and treatment of body pain. With the use of physical examinations, lab work, and imaging the patient was diagnosed with and treated for sickle cell crisis along with the patient's chronic medical conditions. During their hospital stay the patient underwent a chest x-ray which was reviewed, appreciated, and utilized in the management of the patients clinical course. Patient was treated with antihypertensive medications, analgesics, amongst other empiric/therapeutic medications. Overnight, the patient experienced severe pain and as per record was found to be in acute distress, similar to her prior sickle crisis episodes. Dr. Lopez OBGYHaylie, was contacted by the overnight resident who recommended transfer to [facility] or [facility] for further medical management of sickle cell crisis in a female in addition to an abdominal duplex. Dr. Choi at [facility] accepted the transfer. As per records the patient was educated on the risks and benefits of each medication and of the transfer to [facility]. Patient verbalized understanding and agreement with plan to transfer, as well as the risks of administering IV medications without constant monitoring. Patient was transferred to [facility] thereafter. This is a brief summary of the patients hospital course. Please see patient chart for full details. Discharge Exam - Head Exam Head Exam: ATRAUMATIC, NORMAL INSPECTION, NORMOCEPHALIC - Additional Findings Additional findings: Patient was transferred overnight. No physical examination could be conducted as patient was no longer physically present in the hospital. Discharge Plan - Follow Up Plan Condition: GUARDED Disposition: Trans to Other Acute Care Hosp Patient education suggested?: Yes Additional Instructions: Patient was transferred to [facility] overnight. Referrals: PCP,NO [Primary Care Provider] - <Zoey Sims - Last Filed: 06/23/17 00:05> Provider - Provider Date of Admission: 06/19/17 15:25 Attending physician: Zoey Sims MD Primary care physician: NO PRIMARY CARE PROVIDER Hospital Course - Lab Results Lab Results: Most Recent Lab Values WBC 11.7 10^3/ul (4.5-11.0) H 06/19/17 10:57 RBC 2.68 10^6/uL (3.5-6.1) L 06/19/17 10:57 Hgb 8.2 g/dL (12.0-16.0) L 06/19/17 10:57 Hct 23.4 % (36.0-48.0) L 06/19/17 10:57 MCV 87.3 fl (80.0-105.0) 06/19/17 10:57 MCH 30.6 pg (25.0-35.0) 06/19/17 10:57 MCHC 35.0 g/dl (31.0-37.0) 06/19/17 10:57 RDW 17.2 % (11.5-14.5) H 06/19/17 10:57 Plt Count 362 10^3/uL (120.0-450.0) 06/19/17 10:57 MPV 8.8 fl (7.0-11.0) 06/19/17 10:57 Gran % 62.3 % (50.0-68.0) 06/19/17 10:57 Lymph % (Auto) 24.7 % (22.0-35.0) 06/19/17 10:57 Dale % (Auto) 8.8 % (1.0-6.0) H 06/19/17 10:57 Eos % (Auto) 3.8 % (1.5-5.0) 06/19/17 10:57 Baso % (Auto) 0.4 % (0.0-3.0) 06/19/17 10:57 Gran # 7.31 (1.4-6.5) H 06/19/17 10:57 Lymph # 2.9 (1.2-3.4) 06/19/17 10:57 Dale # 1.0 (0.1-0.6) H 06/19/17 10:57 Eos # 0.4 (0.0-0.7) 06/19/17 10:57 Baso # 0.05 K/mm3 (0.0-2.0) 06/19/17 10:57 Retic Count 11.10 % (0.5-1.5) H* 06/19/17 10:57 PT 12.2 SECONDS (9.4-12.5) 06/19/17 10:57 INR 1.11 (0.93-1.08) H 06/19/17 10:57 APTT 25.0 Seconds (25.1-36.5) L 06/19/17 10:57 Sodium 139 mmol/L (132-148) 06/19/17 10:57 Potassium 2.9 mmol/L (3.6-5.0) L* 06/19/17 10:57 Chloride 109 mmol/L (98-107) H 06/19/17 10:57 Carbon Dioxide 24 mmol/L (21-33) 06/19/17 10:57 Anion Gap 10 (10-20) 06/19/17 10:57 BUN 4 mg/dL (7-21) L 06/19/17 10:57 Creatinine 0.4 mg/dl (0.7-1.2) L 06/19/17 10:57 Est GFR ( Amer) > 60 06/19/17 10:57 Est GFR (Non-Af Amer) > 60 06/19/17 10:57 Random Glucose 68 mg/dL (70-110) L 06/19/17 10:57 Calcium 9.3 mg/dL (8.4-10.5) 06/19/17 10:57 Magnesium 1.3 mg/dL (1.7-2.2) L 06/19/17 12:40 Lactate Dehydrogenase 738 U/L (333-699) H 06/19/17 10:57 Total Creatine Kinase < 20 U/L (35-230) L 06/19/17 10:57 Troponin I 0.02 ng/mL 06/19/17 20:30 NT-Pro-B Natriuret Pep 368 pg/mL (0-450) 06/19/17 10:57 Influenza Typ A,B (EIA) Negative for flu a/b (NEGATIVE) 06/19/17 14:00 Attending/Attestation - Attestation I have reviewed all pertinent clinical information, including history, physical exam and plan: Yes
== END 2017-06-20 04:00 | disposition short-term general hospital (02) | DRG 886 ==
LOC: ED 10:38 → ERH 15:25 → 3RNO 18:48
PROVIDERS: ADMIT Internal Medicine; ATTEND Internal Medicine
DX: O99.013 Anemia complicating pregnancy, third trimester (principal); D57.00 Hb-SS disease with crisis, unspecified; I11.0 Hypertensive heart disease with heart failure; I50.9 Heart failure, unspecified; J45.901 Unspecified asthma with (acute) exacerbation; O99.513 Diseases of the respiratory system complicating pregnancy, third trimester; O16.3 Unspecified maternal hypertension, third trimester; E05.90 Thyrotoxicosis, unspecified without thyrotoxic crisis or storm; E87.6 Hypokalemia; O99.283 Endocrine, nutritional and metabolic diseases complicating pregnancy, third trimester; M87.8 Other osteonecrosis; M87.850 Other osteonecrosis, pelvis; Z3A.30 30 weeks gestation of pregnancy; Z88.0 Allergy status to penicillin; Z88.5 Allergy status to narcotic agent

== ENCOUNTER 2017-09-25 07:10 | Emergency (ER) | payer MEDICAID, MEDICARE, OTHER ==
[2017-09-25 07:16] VITALS: BMI 28.3
[2017-09-25 07:25] VITALS: BP 136/88; PULSE 109; RESP 24; TEMP 98.2; O2SAT 100
--- NOTE | 2017-09-25 07:45 | ED PDOC ---
Arrival/HPI - General Chief Complaint: Pain, Chronic Time Seen by Provider: 09/25/17 07:18 - History of Present Illness Narrative History of Present Illness (Text): 31 y/o F c PMHx sickle cell anemia p/w sickle cell crisis x 1 day. Patient states her pain is diffuse, she took her home dose dilaudid without relief and came to ED for pain control. She states she was recently treated for pneumonia 2 weeks ago at [facility] and gave to a 1 month ago. She denies dyspnea, fever, vomiting, leg swelling. Patient states that she did not go to the hospital yesterday. On review of patient's medical chart, patient was in ED at [facility] yesterday. She then changed her story and stated that she was at the hospital the day before that. I informed patient that I would like to treat her for the infiltrate that was found on her CXR during that visit and that I would be treating her sickle cell pain crisis with oral medication. She then got up and walked out of the ED. Past Medical History - Infectious Disease Hx of Infectious Diseases: None - Tetanus Immunization Tetanus Immunization: Up to Date - Cardiac Hx Congestive Heart Failure: Yes Hx Hypertension: Yes Hx Peripheral Edema: Yes (lle +1 edema) - Pulmonary Hx Asthma: Yes Hx Bronchitis: Yes (chronic) - Neurological Hx Neurological Disorder: No - HEENT Hx HEENT Disorder: No - Renal Hx Renal Disorder: No - Endocrine/Metabolic Hx Hyperthyroidism: Yes Hx Hypothyroidism: Yes - Hematological/Oncological Hx Anemia: Yes (blood transfusions) Hx Sickle Cell Disease: Yes - Integumentary Hx Dermatological Disorder: No - Musculoskeletal/Rheumatological Hx Fractures: Yes (left 5th toe) - Gastrointestinal Hx Gastrointestinal Disorders: No - Genitourinary/Gynecological Hx Genitourinary Disorders: Yes (c/s x2, removal of left fallopian tube for ectopic pregnacy) Hx Urinary Tract Infection: Yes Other/Comment: ovarian cyst - Psychiatric Hx Anxiety: Yes Hx Substance Use: No - Past Surgical History Past Surgical History: No Previous - Surgical History Other/Comment: Port in L chest, toe fracture - Anesthesia Hx Anesthesia: Yes Hx Anesthesia Reactions: No Hx Malignant Hyperthermia: No - Suicidal Assessment Feels Threatened In Home Enviroment: No Family/Social History Family/Social History: Unknown Family HX Smoking Status: Light Smoker < 10 Cigarettes Daily Hx Alcohol Use: No Hx Substance Use: No Hx Substance Use Treatment: No Allergies/Home Meds Allergies/Adverse Reactions: Allergies acetaminophen [From Percocet] Allergy (Verified 09/24/17 12:18) RASH ketorolac tromethamine [From Toradol] Allergy (Verified 09/24/17 12:18) ITCHING morphine Allergy (Verified 09/24/17 12:18) RASH oxycodone [From Percocet] Allergy (Verified 09/24/17 12:18) RASH Penicillins Allergy (Verified 09/24/17 12:18) RASH tramadol Allergy (Verified 09/24/17 12:18) DIZZINESS Review of Systems - Physician Review All systems were reviewed & negative as marked: Yes - Review of Systems Constitutional: absent: Fevers Respiratory: absent: SOB Physical Exam - Physical Exam Narrative Physical Exam (Text): Gen: Yelling/moaning Head: NC Eyes: No scleral icterus ENT: MMM CV: Borderline tachycardia Lungs: CTA b/l Extremities: No swelling Neuro: Alert, no focal deficit Vital Signs Temp Pulse Resp BP Pulse Ox 09/25/17 07:11 98.2 F 109 H 24 136/88 100 Disposition/Present on Arrival - Present on Arrival Any Indicators Present on Arrival: No History of DVT/PE: No History of Uncontrolled Diabetes: No Urinary Catheter: No History of Decub. Ulcer: No History Surgical Site Infection Following: None - Disposition Have Diagnosis and Disposition been Completed?: No Diagnosis: Lung infiltrate Disposition: ELOPEMENT - ER ONLY Disposition Time: 07:48 Condition: UNKNOWN Forms: Outline App (Chinese)
== END 2017-09-25 08:00 | disposition left against medical advice (07) ==
LOC: ED 07:10
DX: R91.8 Other nonspecific abnormal finding of lung field (principal); E03.9 Hypothyroidism, unspecified; F17.210 Nicotine dependence, cigarettes, uncomplicated; I10 Essential (primary) hypertension; I50.9 Heart failure, unspecified

== ENCOUNTER 2017-12-07 01:41 | Emergency (ER) | payer MEDICAID, MEDICARE, OTHER ==
[2017-12-07 01:42] VITALS: BMI 28.3
[2017-12-07 02:16] VITALS: RESP 18; TEMP 98.8; O2SAT 97
--- NOTE | 2017-12-07 02:56 | ED PDOC ---
Arrival/HPI - General Chief Complaint: Cough, Cold, Congestion Time Seen by Provider: 12/07/17 02:19 Historian: Patient, Family - History of Present Illness Narrative History of Present Illness (Text): you were treated in the ED today for sick contact family with sore throat, fever , bodyaches and otherwise without any nausea/vomiting/headache/dizziness/ difficulty breathing/chest pain/abdomen pain/numbness/tingling/loss of limb function/pain with urination. Time/Duration: 1 week Symptom Onset: Gradual Symptom Course: Unchanged, Intermittent Severity Level: 1 Activities at Onset: Rest Context: Sitting Past Medical History - Provider Review Nursing Documentation Reviewed: Yes - Travel History Have you recently traveled outside [place] w/in the past 3 mons?: No - Infectious Disease Hx of Infectious Diseases: None - Tetanus Immunization Tetanus Immunization: Up to Date - Cardiac Hx Congestive Heart Failure: Yes Hx Hypertension: Yes Hx Peripheral Edema: Yes (lle +1 edema) - Pulmonary Hx Asthma: Yes Hx Bronchitis: Yes (chronic) - Neurological Hx Neurological Disorder: No - HEENT Hx HEENT Disorder: No - Renal Hx Renal Disorder: No - Endocrine/Metabolic Hx Hyperthyroidism: Yes - Hematological/Oncological Hx Anemia: Yes (blood transfusions) Hx Sickle Cell Disease: Yes - Integumentary Hx Dermatological Disorder: No - Musculoskeletal/Rheumatological Hx Fractures: Yes (left 5th toe) - Gastrointestinal Hx Gastrointestinal Disorders: No - Genitourinary/Gynecological Hx Genitourinary Disorders: Yes (c/s x2, removal of left fallopian tube for ectopic pregnacy) Hx Urinary Tract Infection: Yes Other/Comment: ovarian cyst - Psychiatric Hx Anxiety: Yes Hx Depression: No Hx Substance Use: No - Past Surgical History Past Surgical History: No Previous - Surgical History Hx Section: Yes (x2) Hx Dilation and Curettage: Yes (x2) Other/Comment: , toe fracture lleft ectopic - Anesthesia Hx Anesthesia: Yes Hx Anesthesia Reactions: No Hx Malignant Hyperthermia: No - Suicidal Assessment Feels Threatened In Home Enviroment: No Family/Social History - Physician Review Nursing Documentation Reviewed: Yes Family/Social History: No Known Family HX Smoking Status: Light Smoker < 10 Cigarettes Daily Hx Alcohol Use: No Hx Substance Use: No Hx Substance Use Treatment: No Allergies/Home Meds Allergies/Adverse Reactions: Allergies acetaminophen [From Percocet] Allergy (Verified 12/07/17 02:04) RASH ketorolac tromethamine [From Toradol] Allergy (Verified 12/07/17 02:04) ITCHING morphine Allergy (Verified 12/07/17 02:04) RASH oxycodone [From Percocet] Allergy (Verified 12/07/17 02:04) RASH Penicillins Allergy (Verified 12/07/17 02:04) RASH tramadol Allergy (Verified 12/07/17 02:04) DIZZINESS Review of Systems - Review of Systems Constitutional: Fevers Eyes: Normal ENT: Sore Throat Respiratory: Normal Cardiovascular: Normal Gastrointestinal: Normal Genitourinary Female: Normal Musculoskeletal: Normal Skin: Normal Neurological: Normal Endocrine: Normal Hemo/Lymphatic: Normal Psychiatric: Normal Physical Exam Vital Signs Reviewed: Yes Vital Signs Temp Pulse Resp BP Pulse Ox 12/07/17 05:01 108 H 18 121/69 97 12/07/17 02:15 98.8 F 110 H 18 115/58 L 97 Temperature: Afebrile Blood Pressure: Hypertensive Pulse: Tachycardic Respiratory Rate: Normal Appearance: Positive for: Well-Appearing, Non-Toxic, Comfortable Pain Distress: None Mental Status: Positive for: Alert and Oriented X 3 - Systems Exam Head: Present: Atraumatic, Normocephalic Pupils: Present: PERRL Extroacular Muscles: Present: EOMI Conjunctiva: Present: Normal Ears: Present: Normal Mouth: Present: Moist Mucous Membranes, Other (mild back of throat hyperemia without white spots or swelling and is noted to be wide open without pocket of infection and speaking in normal voice) Nose (External): Present: Atraumatic Nose (Internal): Present: Normal Inspection Neck: Present: Normal Range of Motion Respiratory/Chest: Present: Clear to Auscultation, Good Air Exchange Cardiovascular: Present: Regular Rate and Rhythm Abdomen: No: Tenderness, Distention, Normal Bowel Sounds, Peritoneal Signs, Rebound, Guarding, McBurney's Point Tender, Rovsing's Sign Present, Hernias, Feeding Tubes, Ostomy Tubes, Mass/Organomegaly, Scars, Other Back: Present: Normal Inspection Upper Extremity: Present: Normal Inspection Lower Extremity: Present: Normal Inspection Neurological: Present: GCS=15, CN II-XII Intact, Speech Normal, Motor Func Grossly Intact Skin: Present: Warm, Normal Color Psychiatric: Present: Alert, Oriented x 3, Normal Insight, Normal Concentration Medical Decision Making ED Course and Treatment: you were treated in the ED today for sick contact family with sore throat, fever , bodyaches and otherwise without any nausea/vomiting/headache/dizziness/ difficulty breathing/chest pain/abdomen pain/numbness/tingling/loss of limb function/pain with urination. You were otherwise breathing easily, talking easily, good strength/sensation, walking easily, clear lungs, no abdomen tenderness, mild back of throat hyperemia without white spots or swelling and is noted to be wide open without pocket of infection and speaking in normal voice, no fever temp 98.8, fast heart rate 110 and repeat 108, stable breathing rate 18, excellent oxygen level 97% room air, elevated blood pressure 115/58 which we recommend repeat in 2-3 days primary care office to determine further treatment, influenza test negative, rapid strep test negative, dexamethasone done in the ED, then later in the visit you stated you felt you might be starting a sickle related pain cycle and requested pain medication dilouded and had a long discussion with you regarding laboratory work-up but you refused at this time and requested pain control as you feel its very mild and cautioned for complications/ but you felt improvement and stated you tend to have a fast heart rate, counselled to salt water swish daily and thus discharged home with family/safe ride. 1. Recommend follow-up primary care 2-3 days to review symptoms. 2. If any worsening pain, fever, chills, nausea, vomiting, difficulty breathing, numbness, loss of limb function, pain with urination or any medical condition then return to the ED. 12/07/17 03:52 12/07/17 04:28 12/07/17 05:09 12/07/17 05:11 Reassessment Condition: Re-examined, Improved - Lab Interpretations Lab Results: Lab Results 12/07/17 02:40: Influenza Typ A,B (EIA) Negative for flu a/b 12/07/17 02:40: Grp A Beta Strep Ag Negative I have reviewed the lab results: Yes - Medication Orders Current Medication Orders: Discontinued Medications Dexamethasone (Decadron) 4 mg PO STAT STA Stop: 12/07/17 02:33 Last Admin: 12/07/17 03:01 Dose: 4 mg Hydromorphone HCl (Dilaudid) 1 mg IM STAT STA Stop: 12/07/17 04:29 Last Admin: 12/07/17 04:42 Dose: 1 mg MAR Pain Assessment Document 12/07/17 04:42 (Rec: 12/07/17 04:42 [id number] Pain Reassessment Is this a pain reassessment? Yes Presence of Pain Presence of Pain Yes Pain Scale Used Pain Scale Used Numeric Location Pain Location Body Site Generalized Description Intensity of Pain at present 5 Pain Behavior Irritability IM Administration Charges Document 12/07/17 04:42 (Rec: 12/07/17 04:42 [id number] Injection Site MAR Injection Site Left Deltoid Charges for Administration # of IM Administrations 1 Disposition/Present on Arrival - Present on Arrival Any Indicators Present on Arrival: No History of DVT/PE: No History of Uncontrolled Diabetes: No Urinary Catheter: No History of Decub. Ulcer: No History Surgical Site Infection Following: None - Disposition Have Diagnosis and Disposition been Completed?: Yes Diagnosis: Viral syndrome Disposition: HOME/ ROUTINE Disposition Time: 05:10 Patient Plan: Discharge Condition: IMPROVED Additional Instructions: you were treated in the ED today for sick contact family with sore throat, fever , bodyaches and otherwise without any nausea/vomiting/headache/dizziness/ difficulty breathing/chest pain/abdomen pain/numbness/tingling/loss of limb function/pain with urination. You were otherwise breathing easily, talking easily, good strength/sensation, walking easily, clear lungs, no abdomen tenderness, mild back of throat hyperemia without white spots or swelling and is noted to be wide open without pocket of infection and speaking in normal voice, no fever temp 98.8, fast heart rate 110 and repeat 108, stable breathing rate 18, excellent oxygen level 97% room air, elevated blood pressure 115/58 which we recommend repeat in 2-3 days primary care office to determine further treatment, influenza test negative, rapid strep test negative, dexamethasone done in the ED, then later in the visit you stated you felt you might be starting a sickle related pain cycle and requested pain medication dilouded and had a long discussion with you regarding laboratory work-up but you refused at this time and requested pain control as you feel its very mild and cautioned for complications/ but you felt improvement and stated you tend to have a fast heart rate, counselled to salt water swish daily and thus discharged home with family/safe ride. 1. Recommend follow-up primary care 2-3 days to review symptoms. 2. If any worsening pain, fever, chills, nausea, vomiting, difficulty breathing, numbness, loss of limb function, pain with urination or any medical condition then return to the ED. Forms: [employer] ([employer])
[2017-12-07] MEDS ORDERED: HYDROmorphone 0.5 mg/0.5 ml ISec IM STA (04:28)
[2017-12-07 05:02] VITALS: BP 121/69; PULSE 108
== END 2017-12-07 05:12 | disposition home or self-care (01) ==
LOC: ED 01:41
DX: B34.9 Viral infection, unspecified (principal); F17.210 Nicotine dependence, cigarettes, uncomplicated; I50.9 Heart failure, unspecified; I10 Essential (primary) hypertension
CPT/HCPCS: 87070; 87430; 87804; 96372; 99284; J1170; J8540

== ENCOUNTER 2017-12-21 21:41 | Observation (INO) | payer MEDICAID ==
[2017-12-21 21:46] VITALS: BMI 24.3
--- NOTE | 2017-12-21 22:31 | ED PDOC ---
Arrival/HPI - General Chief Complaint: Cough, Cold, Congestion Time Seen by Provider: 12/21/17 21:56 Historian: Patient - History of Present Illness Narrative History of Present Illness (Text): 12/21/17 22:30 Donta Rivera is a 31 year old female, whose past medical history includes anemia , sickle cell trait, avascular necrosis, and asthma, who presents to the Emergency department complaining of cold-like symptoms for the past 3 days. Patient states she has been experiencing cold-like symptoms with sore throat, rhinorrhea, and productive cough with greenish sputum. Patient states she has been taking Advil and home remedies with no significant relief. Patient notes recent sick contact at home. Patient requesting pain medication for her chronic pain secondary to her sickle cell. Patient denies any fever, chills, chest pain , shortness of breath, nausea, vomiting, back pain, neck pain, headache, dizziness, or any other complaints. Symptom Onset: Gradual Symptom Course: Unchanged Activities at Onset: Light Context: Home Past Medical History - Provider Review Nursing Documentation Reviewed: Yes - Infectious Disease Hx of Infectious Diseases: None - Tetanus Immunization Tetanus Immunization: Up to Date - Cardiac Hx Cardiac Disorders: Yes Hx Congestive Heart Failure: Yes Hx Hypertension: Yes Hx Peripheral Edema: Yes (lle +1 edema) - Pulmonary Hx Respiratory Disorders: Yes Hx Asthma: Yes Hx Bronchitis: Yes (chronic) - Neurological Hx Neurological Disorder: No - HEENT Hx HEENT Disorder: No - Renal Hx Renal Disorder: No - Endocrine/Metabolic Hx Endocrine Disorders: Yes Hx Hyperthyroidism: Yes - Hematological/Oncological Hx Blood Disorders: Yes Hx Anemia: Yes (blood transfusions) Hx Sickle Cell Disease: Yes - Integumentary Hx Dermatological Disorder: No - Musculoskeletal/Rheumatological Hx Musculoskeletal Disorders: Yes Hx Fractures: Yes (left 5th toe) - Gastrointestinal Hx Gastrointestinal Disorders: No - Genitourinary/Gynecological Hx Genitourinary Disorders: Yes (c/s x2, removal of left fallopian tube for ectopic pregnacy) Hx Urinary Tract Infection: Yes Other/Comment: ovarian cyst - Psychiatric Hx Psychophysiologic Disorder: Yes Hx Anxiety: Yes Hx Substance Use: No - Past Surgical History Past Surgical History: No Previous - Surgical History Hx Section: Yes (x2) Hx Dilation and Curettage: Yes (x2) Other/Comment: , toe fracture lleft ectopic - Anesthesia Hx Anesthesia: Yes Hx Anesthesia Reactions: No Hx Malignant Hyperthermia: No - Suicidal Assessment Feels Threatened In Home Enviroment: No Family/Social History - Physician Review Nursing Documentation Reviewed: Yes Family/Social History: Unknown Family HX Smoking Status: Light Smoker < 10 Cigarettes Daily Hx Alcohol Use: No Hx Substance Use: No Hx Substance Use Treatment: No Allergies/Home Meds Allergies/Adverse Reactions: Allergies acetaminophen [From Percocet] Allergy (Verified 12/21/17 21:46) RASH ketorolac tromethamine [From Toradol] Allergy (Verified 12/21/17 21:46) ITCHING morphine Allergy (Verified 12/21/17 21:46) RASH oxycodone [From Percocet] Allergy (Verified 12/21/17 21:46) RASH Penicillins Allergy (Verified 12/21/17 21:46) RASH tramadol Allergy (Verified 12/21/17 21:46) DIZZINESS Home Medications: Home Meds Medication Instructions Recorded Confirmed Folic Acid [Folic Acid] 1 mg PO DAILY 12/21/17 12/21/17 Metoprolol Succinate [Toprol XL] 50 tab PO TID 12/21/17 12/21/17 Review of Systems - Physician Review All systems were reviewed & negative as marked: Yes - Review of Systems Constitutional: Normal Eyes: Normal ENT: Sore Throat, Other (+cold-like symptoms) Respiratory: Cough, Sputum Cardiovascular: Normal. absent: Chest Pain Gastrointestinal: Normal. absent: Abdominal Pain, Diarrhea, Nausea, Vomiting Genitourinary Female: Normal. absent: Dysuria, Frequency, Hematuria, Urine Output Changes Musculoskeletal: Normal. absent: Back Pain, Neck Pain Skin: Normal. absent: Rash Neurological: Normal. absent: Headache, Dizziness Endocrine: Normal Hemo/Lymphatic: Normal Psychiatric: Normal Physical Exam Vital Signs Reviewed: Yes Vital Signs Temp Pulse Resp BP Pulse Ox 12/21/17 21:48 99.1 F 116 H 18 114/80 98 Temperature: Afebrile Blood Pressure: Normal Pulse: Regular Respiratory Rate: Normal Appearance: Positive for: Well-Appearing, Non-Toxic, Comfortable Pain Distress: None Mental Status: Positive for: Alert and Oriented X 3 - Systems Exam Head: Present: Atraumatic, Normocephalic Pupils: Present: PERRL Extroacular Muscles: Present: EOMI Conjunctiva: Present: Normal Ears: Present: Normal, NORMAL TM, Normal Canal. No: Erythema, TM Bulging, Fluid , TM Perf Mouth: Present: Moist Mucous Membranes Pharnyx: Present: ERYTHEMA (Mild erythema to posterior pharynx). No: EXUDATE, TONSILS ENLARGED, Peritonsilar Swelling, Uvular Deviation, Muffled/Hoarse Voice , Strider, Soft Palate/Uvular Edema Nose (External): Present: Atraumatic Nose (Internal): Present: Normal Inspection Neck: Present: Normal Range of Motion. No: Meningeal Signs, MIDLINE TENDERNESS , Paraspinal Tenderness Respiratory/Chest: Present: Clear to Auscultation, Good Air Exchange. No: Respiratory Distress, Accessory Muscle Use Cardiovascular: Present: Regular Rate and Rhythm, Normal S1, S2. No: Murmurs Abdomen: No: Tenderness, Distention, Peritoneal Signs Back: Present: Normal Inspection Upper Extremity: Present: Normal Inspection. No: Cyanosis, Edema Lower Extremity: Present: Normal Inspection. No: Edema Neurological: Present: GCS=15, CN II-XII Intact, Speech Normal Skin: Present: Warm, Dry, Normal Color. No: Rashes Psychiatric: Present: Alert, Oriented x 3, Normal Insight, Normal Concentration Medical Decision Making ED Course and Treatment: 12/21/17 22:30 Impression: 31 year old female complaining of cold-like symptoms, runny nose, sore throat, and productive cough with green sputum. Plan: -- Labs -- Chest X-ray -- Dilaudid -- Zithromax -- Reassess and disposition Prior Visits: Notes and results from previous visits were reviewed. Progress Notes: Chest X-ray reviewed, shows no acute processes. 12/22/17 03:15 Case discussed with medical massage therapist online producer, who is aware and agrees with plan. 12/22/17 03:[address] Hall, who is aware and agrees with plan. Accepts pt in to hospitalist service. Pt will go to [facility] observation for sickle cell disease, leukocytosis, and bronchitis. - Lab Interpretations Lab Results: 12/21/17 23:00 12/21/17 23:00 Lab Results 12/21/17 23:00: Retic Count 13.43 H* 12/21/17 23:00: WBC 23.8 H D, RBC 2.98 L, Hgb 9.3 L, Hct 26.2 L, MCV 87.9, MCH 31.2, MCHC 35.5, RDW 16.1 H, Plt Count 503 H, MPV 9.0 12/21/17 23:00: Sodium 145, Potassium 4.0, Chloride 111 H, Carbon Dioxide 23, Anion Gap 15, BUN 11, Creatinine 0.6 L, Est GFR ( Amer) > 60, Est GFR ( Non-Af Amer) > 60, Random Glucose 91, Calcium 9.8, Total Bilirubin 3.2 H, AST 139 H D, ALT 92 H, Alkaline Phosphatase 152 H D, Total Protein 7.0, Albumin 3.9 , Globulin 3.1, Albumin/Globulin Ratio 1.3 - RAD Interpretation Radiology Orders: 12/22/17 02:34 CHEST PORTABLE [RAD] Stat - Medication Orders Current Medication Orders: Levofloxacin/Dextrose (Levaquin 750mg) 750 mg in 150 mls @ 100 mls/hr IV STAT STA PRN Reason: Protocol Stop: 12/22/17 03:49 Sodium Chloride (Sodium Chloride 0.9%) 1,000 mls @ 999 mls/hr IV .Q1H1M STA Stop: 12/22/17 03:23 Discontinued Medications Azithromycin (Zithromax) 500 mg PO ONCE STA PRN Reason: Protocol Stop: 12/21/17 22:44 Last Admin: 12/21/17 23:33 Dose: 500 mg Hydromorphone HCl (Dilaudid) 4 mg PO ONCE STA Stop: 12/21/17 22:45 Last Admin: 12/21/17 23:33 Dose: 4 mg [facility] Pain Assessment Document 12/21/17 23:33 MARILYN (Rec: 12/21/17 23:34 [facility] [place]) Pain Reassessment Is this a pain reassessment? Yes Location Pain Location Body Site Chest - Scribe Statement The provider has reviewed the documentation as recorded by the Ralph Fernandez Provider Scribe Attestation: All medical record entries made by the Scribe were at my direction and personally dictated by me. I have reviewed the chart and agree that the record accurately reflects my personal performance of the history, physical exam, medical decision making, and the department course for this patient. I have also personally directed, reviewed, and agree with the discharge instructions and disposition. Disposition/Present on Arrival - Present on Arrival Any Indicators Present on Arrival: No History of DVT/PE: No History of Uncontrolled Diabetes: No Urinary Catheter: No History of Decub. Ulcer: No History Surgical Site Infection Following: None - Disposition Have Diagnosis and Disposition been Completed?: Yes Diagnosis: Leucocytosis, Sickle cell pain crisis, Bronchitis Disposition: HOSPITALIZED Disposition Time: 03:23 Condition: STABLE Referrals: Kishor Sanchez MD [Primary Care Provider] - Follow up with primary Forms: Holidu (Maori)
[2017-12-21 23:19] LABS: HEMOGLOBIN 9.3 g/dL (12.0-16.0); MEAN CELL VOLUME 87.9 fl (80.0-105.0); MEAN CORPUSCULAR HEMOGLOBIN 31.2 pg (25.0-35.0); MEAN CORPUSCULAR HGB CONC 35.5 g/dl (31.0-37.0); RBC 2.98 10^6/uL (3.5-6.1); RED CELL DISTRIBUTION WIDTH 16.1 % (11.5-14.5); WHITE BLOOD COUNT 23.8 10^3/ul (4.5-11.0)
[2017-12-21 23:42] LABS: ALB/GLOB RATIO 1.3 (1.1-1.8); ALBUMIN 3.9 g/dL (3.0-4.8); CALCIUM 9.8 mg/dL (8.4-10.5); GFR AFRICAN-AMERICAN > 60; GFR NON-AFRICAN AMERICAN > 60
[2017-12-21 23:54] LABS: ALT/SGPT 92 U/L (7-56); AST/SGOT 139 U/L (14-36); BLOOD UREA NITROGEN 11 mg/dL (7-21)
[2017-12-22] MEDS ORDERED: levoFLOXacin 750 mg in D5W 750 MG/150 ML BAG IV STA (02:20)
[2017-12-22] MEDS ORDERED: Sodium Chloride 0.9% 1,000 ML IV STA (02:23)
--- NOTE | 2017-12-22 04:04 | CP.PCM.HP ---
<Ino Franks - Last Filed: 12/22/17 04:29> History of Present Illness - History of Present Illness History of Present Illness: 31 year old female with a past medical history of sickle cell anemia, CHF, asthma, and hyperthyroidism who presents with 2 weeks of cold like symptoms that have gradually worsened in the past three days. She reports having chills, muscle aches, a sore throat, runny nose, and generalized malaise. She denies chest pain, dyspnea or lower extremity edema. She reports no relief from OTC medication at home.She reports her current household is filled with sick children and adults. She reports having a dry, non-productive cough. She denies nausea, vomiting, diarrhea, diaphoresis, joint aches, night sweats, recent insect bites, hearing or visual changes, or headache. PMH: sickle cell disease, CHF, hyperthroidism, and asthma PSH: 2 C-sections, 1 ectopic and 2 dilatation and curettage, 10 dental extractions Medications: Methimazole 10 mg BID, Metoprolol 50 mg TID, albuterol PRN, and Symbicort Allergies: morphine, tramadol, penicillin, percocet, toradol, etc Family History: Sickle cell disease and asthma Social: digital product manager, smokes 1 cigarette a day, denies alcohol and illicit drug use Present on Admission - Present on Admission Any Indicators Present on Admission: No Review of Systems - Review of Systems All systems: reviewed and no additional remarkable complaints except (as per HPI ) - Constitutional Constitutional: Chills Past Patient History - Infectious Disease Hx of Infectious Diseases: None - Tetanus Immunizations Tetanus Immunization: Up to Date - Past Medical History & Family History Past Medical History?: Yes - Past Social History Smoking Status: Light Smoker < 10 Cigarettes Daily - CARDIAC Hx Cardiac Disorders: Yes Hx Congestive Heart Failure: Yes Hx Hypertension: Yes Hx Peripheral Edema: Yes (lle +1 edema) - PULMONARY Hx Respiratory Disorders: Yes Hx Asthma: Yes Hx Bronchitis: Yes (chronic) - NEUROLOGICAL Hx Neurological Disorder: No - HEENT Hx HEENT Problems: No - RENAL Hx Chronic Kidney Disease: No - ENDOCRINE/METABOLIC Hx Endocrine Disorders: Yes Hx Hyperthyroidism: Yes - HEMATOLOGICAL/ONCOLOGICAL Hx Blood Disorders: Yes Hx Anemia: Yes (blood transfusions) Hx Sickle Cell Disease: Yes - INTEGUMENTARY Hx Dermatological Problems: No - MUSCULOSKELETAL/RHEUMATOLOGICAL Hx Musculoskeletal Disorders: Yes Hx Fractures: Yes (left 5th toe) - GASTROINTESTINAL Hx Gastrointestinal Disorders: No - GENITOURINARY/GYNECOLOGICAL Hx Genitourinary Disorders: Yes (c/s x2, removal of left fallopian tube for ectopic pregnacy) Hx Urinary Tract Infection: Yes Other/Comment: ovarian cyst - PSYCHIATRIC Hx Psychophysiologic Disorder: Yes Hx Anxiety: Yes Hx Substance Use: No - SURGICAL HISTORY Hx Section: Yes (x2) Hx Dilation and Curettage: Yes (x2) Other/Comment: , toe fracture lleft ectopic - ANESTHESIA Hx Anesthesia: Yes Hx Anesthesia Reactions: No Hx Malignant Hyperthermia: No Meds Allergies/Adverse Reactions: Allergies Allergy/AdvReac Type Severity Reaction Status Date / Time acetaminophen [From Percocet] Allergy RASH Verified 12/21/17 21:46 ketorolac tromethamine Allergy ITCHING Verified 12/21/17 21:46 [From Toradol] morphine Allergy RASH Verified 12/21/17 21:46 oxycodone [From Percocet] Allergy RASH Verified 12/21/17 21:46 Penicillins Allergy RASH Verified 12/21/17 21:46 tramadol Allergy DIZZINESS Verified 12/21/17 21:46 Physical Exam - Constitutional Appears: Non-toxic - Head Exam Head Exam: ATRAUMATIC, NORMOCEPHALIC - Eye Exam Eye Exam: EOMI, Normal appearance - ENT Exam ENT Exam: Mucous Membranes Moist, Normal Oropharynx - Neck Exam Neck exam: Positive for: Normal Inspection - Respiratory Exam Respiratory Exam: Wheezes (bilaterally) - Cardiovascular Exam Cardiovascular Exam: Tachycardia, +S1, +S2 - GI/Abdominal Exam GI & Abdominal Exam: Normal Bowel Sounds, Soft. absent: Guarding, Tenderness - Extremities Exam Extremities exam: Positive for: normal inspection. Negative for: pedal edema - Back Exam Back exam: NORMAL INSPECTION. absent: CVA tenderness (L), CVA tenderness (R) - Neurological Exam Neurological exam: Alert, CN II-XII Intact, Oriented x3 - Psychiatric Exam Psychiatric exam: Normal Affect, Normal Mood - Skin Skin Exam: Dry, Intact, Normal Color, Warm Results - Vital Signs Recent Vital Signs: Last Vital Signs Temp 99.1 F 12/21/17 21:48 Pulse 116 H 12/21/17 21:48 Resp 18 12/21/17 21:48 BP 114/80 05/28/18 21:48 Pulse Ox 98 12/21/17 21:48 - Labs Result Diagrams: 12/21/17 23:00 12/21/17 23:00 Assessment & Plan - Assessment and Plan (Free Text) Assessment: 31 year old female with upper respiratory infection and sickle cell crisis. Plan: 1) URI with sickle cell crisis - Blood culture, urine culture, urine analysis, and Procalcitonin - WBC of 23,000; reticulocyte count of 13.4 - Bilirubin 3.2, AST 139, ALT 92, Alk phos of 152 - Levaquin 750 mg IVP Daily - Dilaudid 1 mg q4h PRN for severe pain - 100 ml/hr of NS - Duonebs q6h LEAH and q2h PRN 2) CHF - Metoprolol 50 mg BID (patient states she takes three times a day, adjust as appropriate) - No echocardiogram per chart review, consider ordering, if appropriate - Chest X-ray shows cardiomegaly - BNP ordered, pending 3) Hyperthyroidism - Methimazole 10 mg BID - TSH ordered, pending 4) Nicotine dependence - 7 mg transdermal patch 5) DVT/GI prophylaxis - Lovenox 40 mg SC daily - Protonix 40 mg PO daily Case reviewed and discussed with attending physician, Dr. Hall - Date & Time Date: 12/22/17 Time: 04:44 <Jose Hall MD - Last Filed: 12/22/17 12:01> Results - Vital Signs Recent Vital Signs: Last Vital Signs Temp 99.4 F 12/22/17 09:13 Pulse 100 H 12/22/17 10:51 Resp 20 12/22/17 09:13 BP 133/88 12/22/17 10:51 Pulse Ox 98 12/22/17 09:13 - Labs Result Diagrams: 12/22/17 08:00 12/22/17 08:00 Labs: Laboratory Results - last 24 hr 12/22/17 12/22/17 12/22/17 08:00 08:00 08:00 WBC 22.0 H RBC 2.85 L Hgb 8.8 L Hct 24.9 L MCV 87.4 MCH 30.9 MCHC 35.3 RDW 15.6 H Plt Count 492 H MPV 8.9 Gran % 57.2 Lymph % (Auto) 27.5 Hodgeman % (Auto) 10.4 H Eos % (Auto) 4.5 Baso % (Auto) 0.4 Gran # 12.59 H Lymph # (Auto) 6.1 H Hodgeman # (Auto) 2.3 H Eos # (Auto) 1.0 H Baso # (Auto) 0.08 Sodium 145 Potassium 3.3 L Chloride 108 H Carbon Dioxide 24 Anion Gap 16 BUN 8 Creatinine 0.5 L Est GFR ( Amer) > 60 Est GFR (Non-Af Amer) > 60 Random Glucose 91 Calcium 9.5 Total Bilirubin 2.6 H Direct Bilirubin 0.6 H AST 89 H D ALT 87 H Alkaline Phosphatase 116 Total Protein 7.1 Albumin 3.7 Globulin 3.4 Albumin/Globulin Ratio 1.1 Free T4 2.59 H Attending/Attestation - Attestation I have personally seen and examined this patient.: Yes I have fully participated in the care of the patient.: Yes I have reviewed all pertinent clinical information: Yes Notes (Text): -I agree with the above H&P completed by the resident physician with the following additions and/or changes: -The patient is a 31 year old woman with a history of sickle cell anemia, asthma , hyperthyroidism and reported history of CHF, who is being admitted with acute bronchitis and a sickle cell pain crisis. She denies any chest pain, fevers, dysuria, diarrhea or SOB. CXR done in the ED is negative for PNA (per my read). Leukocytosis of 23,000 noted on ED labs. She will be placed on Duo-nebs, empiric IV antibiotics, IVFs and PRN IV Dilaudid for pain control. River-cultures , procalcitonin and TFTs ordered. Most of her home meds will be continued.
[2017-12-22] MEDS: HYDROmorphone 1 mg/ml ISec IVP PRN ×3 (04:15→11:30)
[2017-12-22] MEDS ORDERED: Albuterol-Ipratrop 3 mg / 0.5 (3 ml) UD IH PRN ×2 (04:17→04:28)
[2017-12-22] MEDS: Sodium Chloride 0.9% 1,000 ML IV SCH ×2 (05:22→18:45)
[2017-12-22] MEDS: Albuterol-Ipratrop 3 mg / 0.5 (3 ml) UD IH SCH ×2 (07:21→13:17)
[2017-12-22] MEDS ORDERED: Phenol Topical 1.4% Throat Spray (180 ml) MT PRN (07:41)
--- NOTE | 2017-12-22 08:03 | RAD ---
HISTORY: cough COMPARISON: 06/19/2017 FINDINGS: LUNGS: No active pulmonary disease. PLEURA: No significant pleural effusion identified, no pneumothorax apparent. CARDIOVASCULAR: Mild cardiomegaly OSSEOUS STRUCTURES: No significant abnormalities. VISUALIZED UPPER ABDOMEN: Normal. OTHER FINDINGS: None. IMPRESSION: No active disease.
[2017-12-22 08:23] LABS: BASO # 0.08 K/mm3 (0.0-2.0); BASO % 0.4 % (0.0-3.0); EOS % 4.5 % (1.5-5.0); GRAN # 12.59 (1.4-6.5); GRAN % 57.2 % (50.0-68.0); HEMOGLOBIN 8.8 g/dL (12.0-16.0); LYMPH # 6.1 (1.2-3.4); LYMPH % 27.5 % (22.0-35.0); MEAN CELL VOLUME 87.4 fl (80.0-105.0); MEAN CORPUSCULAR HEMOGLOBIN 30.9 pg (25.0-35.0); MEAN CORPUSCULAR HGB CONC 35.3 g/dl (31.0-37.0); MEAN PLATELET VOLUME 8.9 fl (7.0-11.0); MONO # 2.3 (0.1-0.6); MONO % 10.4 % (1.0-6.0); RBC 2.85 10^6/uL (3.5-6.1); RED CELL DISTRIBUTION WIDTH 15.6 % (11.5-14.5)
[2017-12-22 08:34] LABS: ALB/GLOB RATIO 1.1 (1.1-1.8); ALBUMIN 3.7 g/dL (3.0-4.8); ALT/SGPT 87 U/L (7-56); AST/SGOT 89 U/L (14-36); BILIRUBIN,DIRECT 0.6 mg/dL (0.0-0.4); BLOOD UREA NITROGEN 8 mg/dL (7-21); CALCIUM 9.5 mg/dL (8.4-10.5); GFR AFRICAN-AMERICAN > 60; GFR NON-AFRICAN AMERICAN > 60
[2017-12-22 09:14] VITALS: RESP 20; TEMP 99.4; O2SAT 98
[2017-12-22] MEDS ORDERED: Azithromycin 500MG/NS 250ml 500 MG/250 ML BAG IVPB SCH (10:00)
[2017-12-22] MEDS ORDERED: Enoxaparin 40 mg Syringe SC SCH (10:00)
[2017-12-22 10:57] VITALS: BP 133/88; PULSE 100
[2017-12-22 12:10] LABS: HEPATITIS B SURFACE AG Negative (NEGATIVE)
[2017-12-22 12:15] LABS: HEPATITIS A IGM NEGATIVE (NEGATIVE); HEPATITIS B CORE AB NEGATIVE (NEGATIVE)
[2017-12-22] MEDS ORDERED: MethylPREDNISolone 40 mg Vial IVP SCH (12:15)
[2017-12-22 12:27] LABS: HEPATITIS C ANTIBODY NEGATIVE (NEGATIVE)
[2017-12-22 13:59] LABS: PH,URINE 6.5 (4.7-8.0); URINE BILIRUBIN NEGATIVE (NEGATIVE); URINE BLOOD NEGATIVE (NEGATIVE); URINE GLUCOSE (UA) NEGATIVE (NEGATIVE); URINE LEUKOCYTE ESTERASE NEGATIVE Leu/uL (NEGATIVE); URINE PROTEIN TRACE mg/dL (<30 mg/dL)
[2017-12-22 14:04] LABS: URINE APPEARANCE CLEAR (CLEAR); URINE COLOR YELLOW (YELLOW)
[2017-12-22 14:11] LABS: URINE RBC NEGATIVE /hpf (0-2); URINE WBC NEGATIVE /hpf (0-6)
[2017-12-22] MEDS ORDERED: HYDROmorphone 2 mg/ml ISec IVP PRN (15:50)
--- NOTE | 2017-12-22 18:02 | CP.PCM.DIS ---
Provider - Provider Date of Admission: 12/22/17 03:20 Attending physician: Ivette Duarte MD Primary care physician: Kishor Sanchez MD Consults: Holli Sanchez ID: Go Time Spent in preparation of Discharge (in minutes): 70 Hospital Course - Lab Results Lab Results: Most Recent Lab Values WBC 22.0 10^3/ul (4.5-11.0) H 12/22/17 08:00 RBC 2.85 10^6/uL (3.5-6.1) L 12/22/17 08:00 Hgb 8.8 g/dL (12.0-16.0) L 12/22/17 08:00 Hct 24.9 % (36.0-48.0) L 12/22/17 08:00 MCV 87.4 fl (80.0-105.0) 12/22/17 08:00 MCH 30.9 pg (25.0-35.0) 12/22/17 08:00 MCHC 35.3 g/dl (31.0-37.0) 12/22/17 08:00 RDW 15.6 % (11.5-14.5) H 12/22/17 08:00 Plt Count 492 10^3/uL (120.0-450.0) H 12/22/17 08:00 MPV 8.9 fl (7.0-11.0) 12/22/17 08:00 Gran % 57.2 % (50.0-68.0) 12/22/17 08:00 Lymph % (Auto) 27.5 % (22.0-35.0) 12/22/17 08:00 Wise % (Auto) 10.4 % (1.0-6.0) H 12/22/17 08:00 Eos % (Auto) 4.5 % (1.5-5.0) 12/22/17 08:00 Baso % (Auto) 0.4 % (0.0-3.0) 12/22/17 08:00 Gran # 12.59 (1.4-6.5) H 12/22/17 08:00 Lymph # (Auto) 6.1 (1.2-3.4) H 12/22/17 08:00 Wise # (Auto) 2.3 (0.1-0.6) H 12/22/17 08:00 Eos # (Auto) 1.0 (0.0-0.7) H 12/22/17 08:00 Baso # (Auto) 0.08 K/mm3 (0.0-2.0) 12/22/17 08:00 Retic Count 13.43 % (0.5-1.5) H* 12/21/17 23:00 Sodium 145 mmol/L (132-148) 12/22/17 08:00 Potassium 3.3 mmol/L (3.6-5.0) L 12/22/17 08:00 Chloride 108 mmol/L (98-107) H 12/22/17 08:00 Carbon Dioxide 24 mmol/L (21-33) 12/22/17 08:00 Anion Gap 16 (10-20) 12/22/17 08:00 BUN 8 mg/dL (7-21) 12/22/17 08:00 Creatinine 0.5 mg/dl (0.7-1.2) L 12/22/17 08:00 Est GFR ( Amer) > 60 12/22/17 08:00 Est GFR (Non-Af Amer) > 60 12/22/17 08:00 Random Glucose 91 mg/dL (70-110) 12/22/17 08:00 Calcium 9.5 mg/dL (8.4-10.5) 12/22/17 08:00 Total Bilirubin 2.6 mg/dL (0.2-1.3) H 12/22/17 08:00 Direct Bilirubin 0.6 mg/dL (0.0-0.4) H 12/22/17 08:00 AST 89 U/L (14-36) H D 12/22/17 08:00 ALT 87 U/L (7-56) H 12/22/17 08:00 Alkaline Phosphatase 116 U/L (38-126) 12/22/17 08:00 NT-Pro-B Natriuret Pep 138 pg/mL (0-450) 12/21/17 23:00 Total Protein 7.1 g/dL (5.8-8.3) 12/22/17 08:00 Albumin 3.7 g/dL (3.0-4.8) 12/22/17 08:00 Globulin 3.4 gm/dL 12/22/17 08:00 Albumin/Globulin Ratio 1.1 (1.1-1.8) 12/22/17 08:00 Procalcitonin 0.16 NG/ML (0.19-0.49) L 12/21/17 23:00 Free T4 2.59 ng/dL (0.78-2.19) H 12/22/17 08:00 TSH 3rd Generation < 0.02 mIU/mL (0.46-4.68) L 12/21/17 23:00 Urine Color Yellow (YELLOW) 12/22/17 13:43 Urine Appearance Clear (CLEAR) 12/22/17 13:43 Urine pH 6.5 (4.7-8.0) 12/22/17 13:43 Ur Specific [place] 1.015 (1.005-1.035) 12/22/17 13:43 Urine Protein Trace mg/dL (<30 mg/dL) H 12/22/17 13:43 Urine Glucose (UA) Negative mg/dL (NEGATIVE) 12/22/17 13:43 Urine Ketones Negative mg/dL (NEGATIVE) 12/22/17 13:43 Urine Blood Negative (NEGATIVE) 12/22/17 13:43 Urine Nitrate Negative (NEGATIVE) 12/22/17 13:43 Urine Bilirubin Negative (NEGATIVE) 12/22/17 13:43 Urine Urobilinogen 1.0 E.U./dL (<1 E.U./dL) H 12/22/17 13:43 Ur Leukocyte Esterase Negative Larry/uL (NEGATIVE) 12/22/17 13:43 Urine RBC Negative /hpf (0-2) 12/22/17 13:43 Urine WBC Negative /hpf (0-6) 12/22/17 13:43 Hepatitis A IgM Ab Negative (NEGATIVE) 12/22/17 07:27 Hep Bs Antigen Negative (NEGATIVE) 12/22/17 07:27 Hep B Core IgM Ab Negative (NEGATIVE) 12/22/17 07:27 Hepatitis C Antibody Negative (NEGATIVE) 12/22/17 07:27 - Hospital Course Hospital Course: 31 year old female with upper respiratory infection and sickle cell crisis. Blood culture, urine culture, urine analysis, and Procalcitonin were al ordered. She was started on levaquin, dilaudid for pain and duonebs. Home meds were resumed, chest xray was done, BNP ordered. She was given nicotine patch for smoking. Patient began to demand more pain medication, we reviewed her vitals and labs and told her that her pain meds did not need to b adjusted. She became frustrated and aggressive and proceeded to sign out AMA. Discharge Exam - Head Exam Head Exam: ATRAUMATIC, NORMOCEPHALIC - Eye Exam Eye Exam: EOMI, Normal appearance, PERRL - Respiratory Exam Respiratory Exam: Wheezes - Cardiovascular Exam Cardiovascular Exam: REGULAR RHYTHM, +S1, +S2 - GI/Abdominal Exam GI & Abdominal Exam: Normal Bowel Sounds - Neurological Exam Neurological exam: Alert, Oriented x3 Discharge Plan - Follow Up Plan Condition: STABLE Disposition: AGAINST MEDICAL ADVICE Referrals: Kishor Sanchez MD [Primary Care Provider] -
--- NOTE | 2017-12-22 19:07 | CP.PCM.CON ---
History of Present Illness - History of Present Illness History of Present Illness: 31 year old female with a history of sickle cell anemia, admitted with sickle cell pain crisis. She noted to feeling sick for about 2 weeks time. She has had muscle aches, subjective fevers with chills, runny nose and soar throat. She notes to sick children in the household. She feels this exacerbated her sickle pain. She does admit to diffuse bone aches. She denies shortness of breath and chest pain. Past medical history: Sickle cell anemia Past surgical history: Family history: Brother has sickle cell anemia Allergies: Smokes 1-2 cigarettes daily, denies alcohol, and illicit drug use. Allergies: Several, see list. Review of systems: All remaining review of systems including HEENT, cardiovascular, respiratory, gastrointestinal, genitourinary, musculoskeletal, dermatologic, neurologic, and psychiatric are negative unless mentioned in the HPI. Past Patient History - Infectious Disease Hx of Infectious Diseases: None - Tetanus Immunizations Tetanus Immunization: Up to Date - Past Medical History & Family History Past Medical History?: Yes - Past Social History Smoking Status: Light Smoker < 10 Cigarettes Daily - CARDIAC Hx Cardiac Disorders: Yes Hx Congestive Heart Failure: Yes Hx Hypertension: Yes Hx Peripheral Edema: Yes (lle +1 edema) - PULMONARY Hx Respiratory Disorders: Yes Hx Asthma: Yes Hx Bronchitis: Yes (chronic) - NEUROLOGICAL Hx Neurological Disorder: No - HEENT Hx HEENT Problems: No - RENAL Hx Chronic Kidney Disease: No - ENDOCRINE/METABOLIC Hx Endocrine Disorders: Yes Hx Hyperthyroidism: Yes - HEMATOLOGICAL/ONCOLOGICAL Hx Blood Disorders: Yes Hx Anemia: Yes (blood transfusions) Hx Sickle Cell Disease: Yes - INTEGUMENTARY Hx Dermatological Problems: No - MUSCULOSKELETAL/RHEUMATOLOGICAL Hx Musculoskeletal Disorders: Yes Hx Fractures: Yes (left 5th toe) - GASTROINTESTINAL Hx Gastrointestinal Disorders: No - GENITOURINARY/GYNECOLOGICAL Hx Genitourinary Disorders: Yes (c/s x2, removal of left fallopian tube for ectopic pregnacy) Hx Urinary Tract Infection: Yes Other/Comment: ovarian cyst - PSYCHIATRIC Hx Psychophysiologic Disorder: Yes Hx Anxiety: Yes Hx Substance Use: No - SURGICAL HISTORY Hx Section: Yes (x2) Hx Dilation and Curettage: Yes (x2) Other/Comment: , toe fracture lleft ectopic - ANESTHESIA Hx Anesthesia: Yes Hx Anesthesia Reactions: No Hx Malignant Hyperthermia: No Meds Allergies/Adverse Reactions: Allergies Allergy/AdvReac Type Severity Reaction Status Date / Time acetaminophen [From Percocet] Allergy RASH Verified 12/21/17 21:46 ketorolac tromethamine Allergy ITCHING Verified 12/21/17 21:46 [From Toradol] morphine Allergy RASH Verified 12/21/17 21:46 oxycodone [From Percocet] Allergy RASH Verified 12/21/17 21:46 Penicillins Allergy RASH Verified 12/21/17 21:46 tramadol Allergy DIZZINESS Verified 12/21/17 21:46 Physical Exam - Head Exam Head Exam: ATRAUMATIC - Eye Exam Eye Exam: Normal appearance - ENT Exam ENT Exam: Mucous Membranes Dry - Respiratory Exam Respiratory Exam: NORMAL BREATHING PATTERN - Cardiovascular Exam Cardiovascular Exam: +S1, +S2 - GI/Abdominal Exam GI & Abdominal Exam: Normal Bowel Sounds - Neurological Exam Neurological exam: Oriented x3 - Psychiatric Exam Psychiatric exam: Normal Affect, Normal Mood - Skin Skin Exam: Warm Results - Vital Signs Recent Vital Signs: Last Vital Signs Temp 99.4 F 12/22/17 09:13 Pulse 100 H 12/22/17 10:51 Resp 20 12/22/17 09:13 BP 133/88 12/22/17 10:51 Pulse Ox 98 12/22/17 09:13 - Labs Result Diagrams: 12/22/17 08:00 12/22/17 08:00 Labs: Laboratory Results - last 24 hr 12/22/17 12/22/17 12/22/17 07:27 08:00 08:00 WBC 22.0 H RBC 2.85 L Hgb 8.8 L Hct 24.9 L MCV 87.4 MCH 30.9 MCHC 35.3 RDW 15.6 H Plt Count 492 H MPV 8.9 Gran % 57.2 Lymph % (Auto) 27.5 [place] % (Auto) 10.4 H Eos % (Auto) 4.5 Baso % (Auto) 0.4 Gran # 12.59 H Lymph # (Auto) 6.1 H [place] # (Auto) 2.3 H Eos # (Auto) 1.0 H Baso # (Auto) 0.08 Sodium Potassium Chloride Carbon Dioxide Anion Gap BUN Creatinine Est GFR ( Amer) Est GFR (Non-Af Amer) Random Glucose Calcium Total Bilirubin Direct Bilirubin AST ALT Alkaline Phosphatase Total Protein Albumin Globulin Albumin/Globulin Ratio Free T4 2.59 H Urine Color Urine Appearance Urine pH Ur Specific [place] Urine Protein Urine Glucose (UA) Urine Ketones Urine Blood Urine Nitrate Urine Bilirubin Urine Urobilinogen Ur Leukocyte Esterase Urine RBC Urine WBC Hepatitis A IgM Ab Negative Hep Bs Antigen Negative Hep B Core IgM Ab Negative Hepatitis C Antibody Negative 12/22/17 12/22/17 08:00 13:43 WBC RBC Hgb Hct MCV MCH MCHC RDW Plt Count MPV Gran % Lymph % (Auto) [place] % (Auto) Eos % (Auto) Baso % (Auto) Gran # Lymph # (Auto) [place] # (Auto) Eos # (Auto) Baso # (Auto) Sodium 145 Potassium 3.3 L Chloride 108 H Carbon Dioxide 24 Anion Gap 16 BUN 8 Creatinine 0.5 L Est GFR ( Amer) > 60 Est GFR (Non-Af Amer) > 60 Random Glucose 91 Calcium 9.5 Total Bilirubin 2.6 H Direct Bilirubin 0.6 H AST 89 H D ALT 87 H Alkaline Phosphatase 116 Total Protein 7.1 Albumin 3.7 Globulin 3.4 Albumin/Globulin Ratio 1.1 Free T4 Urine Color Yellow Urine Appearance Clear Urine pH 6.5 Ur Specific [place] 1.015 Urine Protein Trace H Urine Glucose (UA) Negative Urine Ketones Negative Urine Blood Negative Urine Nitrate Negative Urine Bilirubin Negative Urine Urobilinogen 1.0 H Ur Leukocyte Esterase Negative Urine RBC Negative Urine WBC Negative Hepatitis A IgM Ab Hep Bs Antigen Hep B Core IgM Ab Hepatitis C Antibody Assessment & Plan (1) Sickle cell pain crisis Assessment and Plan: IV fluids, pain meds, folic acid, 02 via NC no current transfusion indication Status: Acute (2) Leucocytosis Assessment and Plan: on antibiotics Status: Acute (3) Sickle cell anemia Assessment and Plan: outpatient hydrea and folic acid Thank you for this interesting consult. Status: Acute
--- NOTE | 2017-12-22 19:07 | CP.PCM.CON ---
History of Present Illness - History of Present Illness History of Present Illness: Infectious Disease Consultation: December 22, 2017 31 yo AA female well known to me [place] [facility] [place] Patient complains of cold like symptoms for the past 2 weeks. The paitent complains of generalized malaise, chills, muscle aches, sore throat, and runny nose. The patient has a known history of pain medication abuse and malingering. Known history of Sickle Cell Disease. PMHx: sickle cell anemia, CHF, asthma, and hyperthyroidism PSHx: C-sections, 1 ectopic , 2 D and C, 10 dental extractions. Allergies: Morphine, Tramadol, PCN, percocet, toradol, ketorolac, acetaminophen Social Hx: frequent hospital visit to multiple hospital facilities in [facility]. Tobacco use 1 ppd. Denies EtOH or illicit drug use. Known heavy pain medication prescription drug use. Medications: Methimazole 10 mg BID, Metoprolol 50 mg TID, albuterol PRN, and Symbicort Family Hx: Sickle cell disease, asthma ROS: No fevers, chills, nausea, vomiting, diarrhea, headaches, chest pain, melena, hematuria, hematemesis, abdominal pain, SOB, headaches, dizziness, vision loss, hearing loss, loss of consciousness. Past Patient History - Infectious Disease Hx of Infectious Diseases: None - Tetanus Immunizations Tetanus Immunization: Up to Date - Past Medical History & Family History Past Medical History?: Yes - Past Social History Smoking Status: Light Smoker < 10 Cigarettes Daily - CARDIAC Hx Cardiac Disorders: Yes Hx Congestive Heart Failure: Yes Hx Hypertension: Yes Hx Peripheral Edema: Yes (lle +1 edema) - PULMONARY Hx Respiratory Disorders: Yes Hx Asthma: Yes Hx Bronchitis: Yes (chronic) - NEUROLOGICAL Hx Neurological Disorder: No - HEENT Hx HEENT Problems: No - RENAL Hx Chronic Kidney Disease: No - ENDOCRINE/METABOLIC Hx Endocrine Disorders: Yes Hx Hyperthyroidism: Yes - HEMATOLOGICAL/ONCOLOGICAL Hx Blood Disorders: Yes Hx Anemia: Yes (blood transfusions) Hx Sickle Cell Disease: Yes - INTEGUMENTARY Hx Dermatological Problems: No - MUSCULOSKELETAL/RHEUMATOLOGICAL Hx Musculoskeletal Disorders: Yes Hx Fractures: Yes (left 5th toe) - GASTROINTESTINAL Hx Gastrointestinal Disorders: No - GENITOURINARY/GYNECOLOGICAL Hx Genitourinary Disorders: Yes (c/s x2, removal of left fallopian tube for ectopic pregnacy) Hx Urinary Tract Infection: Yes Other/Comment: ovarian cyst - PSYCHIATRIC Hx Psychophysiologic Disorder: Yes Hx Anxiety: Yes Hx Substance Use: No - SURGICAL HISTORY Hx Section: Yes (x2) Hx Dilation and Curettage: Yes (x2) Other/Comment: , toe fracture lleft ectopic - ANESTHESIA Hx Anesthesia: Yes Hx Anesthesia Reactions: No Hx Malignant Hyperthermia: No Meds Allergies/Adverse Reactions: Allergies Allergy/AdvReac Type Severity Reaction Status Date / Time acetaminophen [From Percocet] Allergy RASH Verified 12/21/17 21:46 ketorolac tromethamine Allergy ITCHING Verified 12/21/17 21:46 [From Toradol] morphine Allergy RASH Verified 12/21/17 21:46 oxycodone [From Percocet] Allergy RASH Verified 12/21/17 21:46 Penicillins Allergy RASH Verified 12/21/17 21:46 tramadol Allergy DIZZINESS Verified 12/21/17 21:46 Physical Exam - Constitutional Appears: Non-toxic, Chronically Ill - Head Exam Head Exam: ATRAUMATIC, NORMOCEPHALIC - Eye Exam Eye Exam: EOMI, PERRL Pupil Exam: NORMAL ACCOMODATION, PERRL - ENT Exam ENT Exam: Mucous Membranes Moist, Normal External Ear Exam, TM's Normal Bilaterally - Neck Exam Neck exam: Positive for: Full Rom, Normal Inspection - Respiratory Exam Respiratory Exam: Decreased Breath Sounds, Wheezes - Cardiovascular Exam Cardiovascular Exam: REGULAR RHYTHM, RRR, +S1, +S2 - GI/Abdominal Exam GI & Abdominal Exam: Normal Bowel Sounds, Soft. absent: Distended, Tenderness - Extremities Exam Extremities exam: Positive for: full ROM, normal inspection - Neurological Exam Neurological exam: Alert, CN II-XII Intact, Oriented x3 - Psychiatric Exam Psychiatric exam: Normal Affect, Normal Mood - Skin Skin Exam: Intact, Normal Color Results - Vital Signs Recent Vital Signs: Last Vital Signs Temp 99.4 F 12/22/17 09:13 Pulse 100 H 12/22/17 10:51 Resp 20 12/22/17 09:13 BP 133/88 12/22/17 10:51 Pulse Ox 98 12/22/17 09:13 - Labs Result Diagrams: 12/22/17 08:00 12/22/17 08:00 Labs: Laboratory Results - last 24 hr 12/22/17 12/22/17 12/22/17 07:27 08:00 08:00 WBC 22.0 H RBC 2.85 L Hgb 8.8 L Hct 24.9 L MCV 87.4 MCH 30.9 MCHC 35.3 RDW 15.6 H Plt Count 492 H MPV 8.9 Gran % 57.2 Lymph % (Auto) 27.5 [place] % (Auto) 10.4 H Eos % (Auto) 4.5 Baso % (Auto) 0.4 Gran # 12.59 H Lymph # (Auto) 6.1 H [place] # (Auto) 2.3 H Eos # (Auto) 1.0 H Baso # (Auto) 0.08 Sodium Potassium Chloride Carbon Dioxide Anion Gap BUN Creatinine Est GFR ( Amer) Est GFR (Non-Af Amer) Random Glucose Calcium Total Bilirubin Direct Bilirubin AST ALT Alkaline Phosphatase Total Protein Albumin Globulin Albumin/Globulin Ratio Free T4 2.59 H Urine Color Urine Appearance Urine pH Ur Specific [place] Urine Protein Urine Glucose (UA) Urine Ketones Urine Blood Urine Nitrate Urine Bilirubin Urine Urobilinogen Ur Leukocyte Esterase Urine RBC Urine WBC Hepatitis A IgM Ab Negative Hep Bs Antigen Negative Hep B Core IgM Ab Negative Hepatitis C Antibody Negative 12/22/17 12/22/17 08:00 13:43 WBC RBC Hgb Hct MCV MCH MCHC RDW Plt Count MPV Gran % Lymph % (Auto) [place] % (Auto) Eos % (Auto) Baso % (Auto) Gran # Lymph # (Auto) [place] # (Auto) Eos # (Auto) Baso # (Auto) Sodium 145 Potassium 3.3 L Chloride 108 H Carbon Dioxide 24 Anion Gap 16 BUN 8 Creatinine 0.5 L Est GFR ( Amer) > 60 Est GFR (Non-Af Amer) > 60 Random Glucose 91 Calcium 9.5 Total Bilirubin 2.6 H Direct Bilirubin 0.6 H AST 89 H D ALT 87 H Alkaline Phosphatase 116 Total Protein 7.1 Albumin 3.7 Globulin 3.4 Albumin/Globulin Ratio 1.1 Free T4 Urine Color Yellow Urine Appearance Clear Urine pH 6.5 Ur Specific [place] 1.015 Urine Protein Trace H Urine Glucose (UA) Negative Urine Ketones Negative Urine Blood Negative Urine Nitrate Negative Urine Bilirubin Negative Urine Urobilinogen 1.0 H Ur Leukocyte Esterase Negative Urine RBC Negative Urine WBC Negative Hepatitis A IgM Ab Hep Bs Antigen Hep B Core IgM Ab Hepatitis C Antibody Assessment & Plan - Assessment and Plan (Free Text) Assessment: 31 yo AA female with Sickle Cell disease with history of crisis episodes and history of malingering and pain medication abuse. Leukocytosis of 23 likely secondary to her frequent Sickle Cell Crisis that she does not control outside of the hospital. The patient with frequent hospitalizations to multiple medical facilities. Recently had delivered a baby. Would consider the patient off of antibiotics. Supportive care. History of CHF, Hyperthyroidism, Pain medication dependence, nicotine dependence. Thank you for allowing me to participate in the care of the patient, we will follow with you.
[2017-12-23] MEDS ORDERED: Pantoprazole 40 mg EC Tab PO SCH (07:30)
[2017-12-23] MEDS ORDERED: levoFLOXacin 750 mg in D5W 750 MG/150 ML BAG IVPB SCH (10:00)
== END 2017-12-22 18:02 | disposition left against medical advice (07) ==
LOC: ED 21:41 → ERH 12-22 03:20 → 5RSO 12-22 04:33
PROVIDERS: ADMIT Internal Medicine; ATTEND Internal Medicine
DX: D57.00 Hb-SS disease with crisis, unspecified (principal); J20.9 Acute bronchitis, unspecified; J06.9 Acute upper respiratory infection, unspecified; I11.0 Hypertensive heart disease with heart failure; I50.9 Heart failure, unspecified; F17.210 Nicotine dependence, cigarettes, uncomplicated; E05.90 Thyrotoxicosis, unspecified without thyrotoxic crisis or storm; D72.829 Elevated white blood cell count, unspecified; G89.29 Other chronic pain; J45.909 Unspecified asthma, uncomplicated; Z88.8 Allergy status to other drugs, medicaments and biological substances; Z88.5 Allergy status to narcotic agent; Z88.0 Allergy status to penicillin; Z87.440 Personal history of urinary (tract) infections
CPT/HCPCS: 71045; 80053; 80074; 81001; 82248; 83880; 84145; 84439; 84443; 85025; 85027; 85044; 87040; 87086; 94640; 94760; 96372; 96374; 96375; 96376; 99284; C9113; G0378; J0456; J1170; J1650; J2920; J7030